=== PATIENT | female | born 1945 | race Caucasian/White ===

== ENCOUNTER 2016-12-13 20:21 | Inpatient (IN) | payer MEDICAID, MEDICARE, OTHER, SELFPAY ==
[2016-12-13 21:10] LABS: CHLORIDE,CL 90 mmol/L (101-111); SODIUM,NA 127 mmol/L (135-145)
--- NOTE | 2016-12-13 23:00 | ER ---
REASON FOR VISIT: Unresponsiveness. HISTORY OF PRESENT ILLNESS: This is a 71-year-old female, who was at her son's house today. She had been sitting in the chair with her eyes closed all day, although she was somewhat more responsive at about 3:00 p.m. when she was sitting with her grandson. She went to the bathroom and was very weak. She was incontinent of urine when she walked in there and the urine went on the floor. She was weak in both arms and legs symmetrically. There did not seem to be focal weakness. She got off the toilet and was again very weak and struggled to get on her feet and was able to do so only with the help of her son. The patient has a history of TIAs. Dr. Sheridan is her doctor here in [facility]. She saw Dr. Allen last Tuesday. Dr. Allen set the patient up to see Dr. Luke, a neurologist from [facility] in [place] as well as a tractor crane operator from [facility]. When there were two providers are here the family notes that the TIAs are more frequent now and they were wondering if anything different could be done for the patient. PHYSICAL EXAMINATION: General: Today on exam, this is a female about the stated age in no acute distress. Vital Signs: She is afebrile with a temperature of 36.9, pulse of 74 and regular, blood pressure is 131/44, respiratory rate 18 and unlabored, and O2 saturation is 93% by oximetry. HEENT: Pupils are equal, round, and react to light and accommodation. She does not follow directions well and is not able to do an extraocular movement exam. Neuro: She is able to cooperate poorly with the neuro exam because of her dementia and an incomplete neuro examination is done. Pharynx is pink and moist. Heart: Regular rate and rhythm without murmur. Lungs: Clear. Abdomen: Soft, and nontender. Extremities: Showed no edema. IMAGING DATA: An EKG is done and shows a sinus rhythm, rate of 72 with a nonspecific repolarization abnormality. At this point, the patient is awaiting further studies. [facility] /[id number]
[2016-12-14] MEDS ORDERED: Potassium Chloride 10 MEQ Tab.ER PO ONE (00:21)
[2016-12-14] MEDS: Sodium Chloride 0.9% 1,000 ML IV SCH ×2 (01:08→20:05)
--- NOTE | 2016-12-14 01:10 | PCM.HP ---
H&P History of Present Illness - General Date of Service: 12/14/16 Admit Problem/Dx: Admission Diagnosis/Problem Admission Diagnosis/Problem Syncope Source of Information: Patient, Family, Old records, Provider History Limitations: Reports: Other (poor historian - underlying dementia ) - History of Present Illness Initial Comments - Free Text/Narative: Charito is a 71 y/o who lives at home with assistance from home health and family. She has a PMH of dementia, HTN, TIA, HLD, who presents to EOD with episode of unresponsiveness/syncope episode. Pt is poor historian and history is provide by son with whom she spent the day/weekend. (pt lives in her own home but does spend weekends/holidays with son) son reports she was at her baseline all weekend. then this am she seemed more tired and as day progressed more weak. PT required increased assistance to use her walker and walked slower than normal. She was noted to have mild cough, unproductive, and warm (possible subjective fevers?), She deneid any dysuria, n /v, diarrhea, abd pain, GRULLON, sore thoat, vision changes, skin lesions, falls. This evening pt had gone to bathroom and required assitance to get off commode. She walked slowly to kitchen and sat in chair. pt was weak. She then became unresponsive. she had her eyes closed, slummed (family held her in chair), no seizure like activity. seems to last several minutes (prior TIAx have lasted on one minute or so). Family called EMS and pt was transported to EOD EOD w/u significant for elevated WBC at 19.2 with left shift but no source of infection. trop neg, EKG- no acute findings. mild elevated CK at 632. low sodium at 127, low K 3.[address] head. pt remains weak (generalized ) but otherwise seems back to baseline - Related Data Allergies/Adverse Reactions: Allergies Allergy/AdvReac Type Severity Reaction Status Date / Time meperidine HCl [From Demerol] Allergy UNKNOWN Verified 12/13/16 20:28 Home Medications: Home Meds Aspirin [Howard Aspirin] 81 mg PO DAILY 04/08/15 [History] Donepezil HCl 10 mg PO QPM 04/08/15 [History] Escitalopram [Lexapro] 10 mg PO QPM 04/08/15 [History] Losartan Potassium [Cozaar] 100 mg PO DAILY 04/08/15 [History] Memantine [Namenda] 10 mg PO DAILY 04/08/15 [History] Omeprazole [priLOSEC OTC] 20 mg PO DAILY 04/08/15 [History] risperiDONE [RisperiDAL] 0.25 mg PO BEDTIME 04/08/15 [History] Hydrochlorothiazide 25 mg PO DAILY #30 tablet 04/10/15 [Rx] Simvastatin [Zocor] 20 mg PO BEDTIME #30 tablet 04/10/15 [Rx] Sodium Chloride 0.65% [[place] Nasal [place]] 45 ml SHRUTHI DAILY 07/08/16 [History] Clopidogrel [Plavix] 75 mg PO DAILY #30 tablet 07/09/16 [Rx] Past Medical History - Past Health History Medical/Surgical History: Denies Medical/Surgical History Cardiovascular History: Reports: Heart murmur, High cholesterol, Hypertension Other Cardiovascular History: history of bradycardia Gastrointestinal History: Reports: GERD, Other (see below) Other Gastrointestinal History: colonic diverticular disease Other OB/BYN History: 1 NVD Neurological History: Reports: TIA, Other (see below) Other Neuro History: dementia Psychiatric History: Reports: Anxiety, Dementia, Depression, Psychosis - Past Surgical History GI Surgical History: Reports: Colonoscopy Musculoskeletal Surgical History: Reports: Joint replacement, Knee replacement, Other (see below) Other Musculoskeletal Surgeries/Procedures:: rotator cuff repair bilateral Social & Family History - Family History Family Medical History: Noncontributory Other Family History: both parents from cancer- unknown types - Tobacco Use Smoking Status *Q: Never Smoker Second Hand Smoke Exposure: No - Caffeine Use Caffeine Use: Reports: Coffee - Alcohol Use Days Per Week of Alcohol Use: 0 - Recreational Drug Use Recreational Drug Use: No - Living Situation & Occupation Living situation: Reports: , alone Occupation: retired H&P Review of Systems - Review of Systems: Review Of Systems: See Below Free Text/Narrative: from pt and son General: Reports: fever, weakness HEENT: Reports: no symptoms Pulmonary: Reports: cough Gastrointestinal: Reports: No symptoms Genitourinary: Reports: incontinence (didnt get to commode intime - ) Musculoskeletal: Reports: no symptoms Skin: Reports: bruising (few on legs ) Psychiatric: Reports: confusion (at baseline ) Neurological: Reports: weakness, other (episode of unresponsiveness ) Exam - Exam Exam: See Below - Vital Signs Vital Signs: Last Vital Signs Temp 37.3 C 12/13/16 23:41 Pulse 80 12/13/16 23:41 Resp 20 12/13/16 23:41 BP 151/49 H 12/13/16 23:41 Pulse Ox 98 12/13/16 23:41 Weight: 84.867 kg - Exam General: alert, cooperative HEENT: Conjunctiva clear, Pupils equal, Pupils reactive Neck: supple Lungs: Clear to auscultation, Normal respiratory effort Cardiovascular: regular rate, regular rhythm, systolic murmur Abdomen: normal bowel sounds, soft, other (obese) Back Exam: normal inspection Extremities: normal inspection Peripheral Pulses: 2+: radial (L), radial (R), posterior tibial (L), posterior tibial (R) Skin: ecchymosis (few scattered small bruises on legs ) Neurological: reflexes equal bilateral, strength equal bilateral, normal speech , normal tone Neuro Extensive - Mental Status: alert DTR: 2+: patella (L), patella (R) Psychiatric: alert, other (poor historian at baseline ) - Patient Data Result Diagrams: 12/13/16 20:45 12/13/16 20:45 EKG INTERPRETATION EKG Date: 12/13/16 Rhythm: NSR EKG Interpretation Comments: reporlarization changes- unchanged from prior EKG *Q Meaningful Use (ADM) - VTE *Q VTE Criteria *Q: - Stroke *Q Stroke Criteria *Q: - AMI *Q AMI Criteria *Q: - Problem List (1) Hyponatremia SNOMED Code(s): 38468385 ICD Code: E87.1 - HYPO-OSMOLALITY AND HYPONATREMIA Status: Acute Priority : Medium Current Visit: Yes (2) Leukocytosis, unspecified SNOMED Code(s): 305730276, 081806528 ICD Code: D72.829 - ELEVATED WHITE BLOOD CELL COUNT, UNSPECIFIED Status: Acute Priority: Medium Current Visit: Yes Qualifiers: Leukocytosis type: unspecified Qualified Code(s): D72.829 - Elevated white blood cell count, unspecified (3) Syncopal episodes SNOMED Code(s): 467688190 ICD Code: R55 - SYNCOPE AND COLLAPSE Status: Acute Priority: High Current Visit: Yes Qualifiers: Syncope type: unspecified Qualified Code(s): R55 - Syncope and collapse Problem List Initiated/Reviewed/Updated: Yes Orders Last 24hrs: Active Orders 24 hr Category Date Time Status Patient Status [ADT] Routine ADT 12/14/16 00:22 Ordered Cardiac Monitoring [RC] CONTINUOUS Care 12/14/16 00:23 Active Intake and Output [RC] QSHIFT Care 12/14/16 00:22 Active Neuro Check [RC] Q2H Care 12/14/16 00:28 Active Oxygen Therapy [RC] PRN Care 12/14/16 00:22 Active Peripheral IV Care [RC] . DIRECTED Care 12/14/16 00:23 Active Up With Assistance [RC] ASDIRECTED Care 12/14/16 00:21 Active VTE/DVT Education [RC] PER UNIT ROUTINE Care 12/14/16 00:22 Active Vital Signs [RC] Q4H Care 12/14/16 00:22 Active OT Evaluation and Treatment [CONS] Routine Cons 12/14/16 00:21 Active PT Evaluation and Treatment [CONS] Routine Cons 12/14/16 00:21 Active Regular Diet [DIET] Diet 12/14/16 Breakfast Active BASIC METABOLIC PANEL,BMP [CHEM] Routine Lab 12/14/16 06:00 Ordered CBC WITH AUTO DIFF [HEME] Routine Lab 12/14/16 06:00 Ordered CREATINE KINASE,CK [CHEM] Routine Lab 12/14/16 06:00 Ordered TROPONIN I [CHEM] Q8H Lab 12/14/16 04:00 Ordered TROPONIN I [CHEM] Q8H Lab 12/14/16 12:00 Ordered Acetaminophen [Tylenol] Med 12/14/16 00:21 Active 650 mg PO Q4H PRN Heparin Sodium Med 12/14/16 06:00 Active 5,000 units SUBCUT Q8HR Sodium Chloride 0.9% [Normal Saline] 1,000 ml Med 12/14/16 00:30 Active IV ASDIRECTED Sodium Chloride 0.9% [Saline Flush] Med 12/14/16 00:21 Active 10 ml FLUSH ASDIRECTED PRN Peripheral IV Insertion Adult [OM.PC] Routine Oth 12/14/16 00:21 Ordered Resuscitation Status Routine Resus Stat 12/14/16 00:21 Ordered Medication Orders Acetaminophen (Tylenol) 650 mg PO Q4H PRN PRN Reason: Pain (Mild 1-3)/fever Heparin Sodium (Porcine) (Heparin Sodium) 5,000 units SUBCUT Q8HR OFELIA Sodium Chloride (Normal Saline) 1,000 mls @ 100 mls/hr IV ASDIRECTED OFELIA Sodium Chloride (Saline Flush) 10 ml FLUSH ASDIRECTED PRN PRN Reason: Keep Vein Open Assessment/Plan Comment:: episode of unresponsiveness/syncope -pt with h/o recurrent TIA- overall presentation similar ot prior events but this one lasted longer -DDX - sycnope, TIA, cardiac event - ACS, less likey due to her mod , also consider seizure- given mild elevation of CPK -obtain neuro checks Q2 overnight -consider MRI in am -place pt on tele- obtain serial trops -consult PT/OT in am due to the weakness -cont asa, plavix, lipids -check lipid panel Leukocytosis -no identified bacterial source - CXR, UA unremarkable, no GI symptoms, no skin lesions, nl lactic acid; no SIRS -possible viral infections vs stress reaction to her unresponsive event -hold antibx for now - recheck in am hyponatremia -DDX_ due to HCTZ, poor PO intake, possible SIADH - pt on TIAGO, SSRI -will give IV fluids and recheck in am -checu urine studies if falls more low potassium -replace PO -recheck in am hematuria -UA with protein and blood- but was a cath sample -hydrate overnight and recheck in am -f/u on urine culture elevated CPK -mild - 637 -minimal bruises on leg- unlikely source -?? seizure -early rhabdo ?? - etiology -- recheck in am -give gentle IV fluids for renal protection dementia -appears at baseline cont home meds obesity BMI 33 limited activity due to bad knees, dementia heparine DVT PPX pt is full code at this time per d/w son
[2016-12-14] MEDS: Acetaminophen 325 MG Tab PO PRN (03:58)
[2016-12-14 04:15] LABS: CHLORIDE,CL 92 mmol/L (101-111); SODIUM,NA 128 mmol/L (135-145)
[2016-12-14] MEDS: Heparin Sodium 5,000 Units/ML Vial SUBCUT SCH ×3 (05:24→22:08)
[2016-12-14] MEDS ORDERED: Levofloxacin/Dextrose 5%-Water 750 MG in Premix Bag 1 BAG IV SCH (08:00)
[2016-12-14] MEDS ORDERED: Non-Formulary Medication 1 Each (Omeprazole [Prilosec Otc] 20 MG) PO SCH (09:00)
[2016-12-14] MEDS: Potassium Chloride 10 MEQ Tab.ER PO SCH ×3 (09:42→17:43)
[2016-12-14] MEDS ORDERED: Memantine 10 MG Tab PO SCH (11:00)
[2016-12-14] MEDS ORDERED: Iopamidol 612 MG/ML 75 ML Bottle IVPUSH ONE (11:24)
[2016-12-14] MEDS ORDERED: Barium Sulfate w/v 2.1% Oral Susp 450 ML Bottle PO ONE (11:24)
--- NOTE | 2016-12-14 11:36 | ER ---
This is a continuation of a note that was dictated up to the EKG. I would like to monitor this with that document. LABORATORY: Laboratory today [place] Ms[place] [address]. Coagulation INR is 1.1. Chemistry shows sodium is 127 with a potassium of 3.3, creatine kinase is 635, and the glucose is 133. Urinalysis shows 100 protein, 100 glucose which are both high and ketones of 15, which is also high. The troponin is within normal limits as is the CK-MB. Chest x-ray is unremarkable. IMPRESSION: 1. Leukocytosis. 2. Hyponatremia. 3. Elevated CK. PLAN: The patient is admitted to Dr. Win. MOD /[id number]
--- NOTE | 2016-12-14 12:10 | PCM.PN ---
- General Info Date of Service: 12/14/16 Subjective Update: this a pt states she feels better; son also notes she has better color and more interactive/awake. pt remains poor historian as per her baseline. pt denies any pain, cough, n/v, diarrhea, ; states has shortness of breath sometimes in her throat. son reports pt has poor dentation and due to have several teeth extracted Functional Status: Reports: pain controlled, tolerating diet - Review of Systems General: Reports: weakness HEENT: Reports: no symptoms Pulmonary: Reports: shortness of breath Cardiovascular: Reports: no symptoms Gastrointestinal: Reports: No symptoms Genitourinary: Reports: no symptoms Musculoskeletal: Reports: no symptoms Skin: Reports: no symptoms Systems Review Comment:: unreliable history from confused pt - Patient Data Vitals - most recent: Last Vital Signs Temp 37.6 C 12/14/16 11:37 Pulse 84 12/14/16 11:37 Resp 20 12/14/16 11:37 BP 139/47 L 12/14/16 11:37 Pulse Ox 95 12/14/16 11:37 Weight - most recent: 84.867 kg I&O - last 24 hours: Intake & Output 12/13/16 12/14/16 12/14/16 22:59 06:59 14:59 Intake Total 429 130 Balance 429 130 Lab Results last 24 hrs: Laboratory Results - last 24 hr 12/14/16 12/14/16 12/14/16 Range/Units 03:55 03:55 03:55 WBC 23.5 H (5.0-10.0) 10^3/uL RBC 3.80 L (4.2-5.4) 10^6/uL Hgb 11.8 L (12.0-16.0) g/dL Hct 34.4 L (37.0-47.0) % MCV 90.5 (80-100) fL MCH 31.1 (27.0-34.0) pg MCHC 34.3 (33.0-35.0) g/dL Plt Count 152 (150-450) 10^3/uL Neut % (Auto) 87.8 H (42.2-75.2) % Lymph % (Auto) 3.5 L (20.5-50.1) % Loup % (Auto) 8.7 H (2-8) % Eos % (Auto) 0.0 L (1.0-3.0) % Baso % (Auto) 0.0 (0.0-1.0) % Sodium 128 L (135-145) mmol/L Potassium 3.5 L (3.6-5.0) mmol/L Chloride 92 L (101-111) mmol/L Carbon Dioxide 29.0 (21.0-31.0) mmol/L Anion Gap 10.5 BUN 12 (7-18) mg/dL Creatinine 0.8 (0.6-1.3) mg/dL Est Cr Clr Drug Dosing 52.58 mL/min Estimated GFR (MDRD) > 60 Glucose 135 H (74-105) mg/dL Calcium 9.2 (8.4-10.2) mg/dl Creatine Kinase 511 H (26-174) IU/L Troponin I < 0.02 (0.00-0.02) ng/ml Med Orders - Current: Current Medications Acetaminophen (Tylenol) 650 mg PO Q4H PRN PRN Reason: Pain (Mild 1-3)/fever Last Admin: 12/14/16 03:58 Dose: 650 mg Aspirin (Halfprin) 81 mg PO DAILY [facility] Clopidogrel Bisulfate (Plavix) 75 mg PO DAILY [facility] Heparin Sodium (Porcine) (Heparin Sodium) 5,000 units SUBCUT Q8HR [facility] Last Admin: 12/14/16 05:24 Dose: 5,000 units Sodium Chloride (Normal Saline) 1,000 mls @ 100 mls/hr IV ASDIRECTED [facility] Last Admin: 12/14/16 01:08 Dose: 100 mls/hr Piperacillin Sod/Tazobactam (Sod 3.375 gm/ Sodium Chloride) 100 mls @ 200 mls/ hr IV Q6HR [facility] Memantine (Namenda) 10 mg PO DAILY [facility] Non-Formulary Medication (Omeprazole [Prilosec Otc]) 20 mg PO DAILY [facility] Potassium Chloride (Klor-Con 10) 20 meq PO TIDMEALS [facility] Stop: 12/15/16 08:01 Last Admin: 12/14/16 09:42 Dose: 20 meq Simvastatin (Zocor) 20 mg PO BEDTIME [facility] Sodium Chloride (Saline Flush) 10 ml FLUSH ASDIRECTED PRN PRN Reason: Keep Vein Open Discontinued Medications Barium Sulfate (Readi-Cat 2) 900 ml PO ONETIME ONE Stop: 12/14/16 11:25 Donepezil HCl (Aricept) 10 mg PO QPM [facility] Levofloxacin/Dextrose 750 mg/ (Premix) 150 mls @ 100 mls/hr IV Q24H [facility] Last Admin: 12/14/16 09:42 Dose: 100 mls/hr Iopamidol (Isovue-300 (61%)) 75 ml IVPUSH ONETIME ONE Stop: 12/14/16 11:25 Potassium Chloride (Klor-Con 10) 40 meq PO ONETIME ONE Stop: 12/14/16 00:22 Last Admin: 12/14/16 01:02 Dose: 40 meq - Exam General: alert, cooperative, no acute distress HEENT: Pupils equal Lungs: Clear to auscultation, Normal respiratory effort Cardiovascular: regular rate, regular rhythm, murmurs Abdomen: bowel sounds present, soft, no tenderness Extremities: no edema Skin: warm, dry Neurological: no new focal deficit (confused at baseline ) - Problem List & Annotations (1) Hyponatremia SNOMED Code(s): 98559287 Code(s): E87.1 - HYPO-OSMOLALITY AND HYPONATREMIA Status: Acute Priority : Medium Current Visit: Yes (2) Leukocytosis, unspecified SNOMED Code(s): 163256443, 241066316 Code(s): D72.829 - ELEVATED WHITE BLOOD CELL COUNT, UNSPECIFIED Status: Acute Priority: Medium Current Visit: Yes Qualifiers: Leukocytosis type: unspecified Qualified Code(s): D72.829 - Elevated white blood cell count, unspecified (3) Syncopal episodes SNOMED Code(s): 604200408 Code(s): R55 - SYNCOPE AND COLLAPSE Status: Acute Priority: High Current Visit: Yes Qualifiers: Syncope type: unspecified Qualified Code(s): R55 - Syncope and collapse (4) Bacteremia SNOMED Code(s): 2229515 Code(s): R78.81 - BACTEREMIA Status: Acute Current Visit: Yes - Problem List Review Problem List Initiated/Reviewed/Updated: Yes - My Orders Last 24 Hours: My Active Orders 12/14/16 00:21 Up With Assistance [RC] ASDIRECTED OT Evaluation and Treatment [CONS] Routine PT Evaluation and Treatment [CONS] Routine Acetaminophen [Tylenol] 650 mg PO Q4H PRN Sodium Chloride 0.9% [Saline Flush] 10 ml FLUSH ASDIRECTED PRN Peripheral IV Insertion Adult [OM.PC] Routine Resuscitation Status Routine 12/14/16 00:22 Patient Status [ADT] Routine Intake and Output [RC] QSHIFT Oxygen Therapy [RC] PRN VTE/DVT Education [RC] PER UNIT ROUTINE Vital Signs [RC] Q4H 12/14/16 00:23 Cardiac Monitoring [RC] CONTINUOUS Peripheral IV Care [RC] . DIRECTED 12/14/16 00:30 Sodium Chloride 0.9% [Normal Saline] 1,000 ml IV ASDIRECTED 12/14/16 03:55 LIPID PANEL [REF] Routine 12/14/16 06:00 Heparin Sodium 5,000 units SUBCUT Q8HR 12/14/16 07:50 UA W/MICROSCOPIC [URIN] Routine 12/14/16 07:57 INFLUENZA A+B AG SCREEN [RM] Routine 12/14/16 08:00 Potassium Chloride [Klor-Con 10] 20 meq PO TIDMEALS 12/14/16 09:00 Aspirin [Halfprin] 81 mg PO DAILY Clopidogrel [Plavix] 75 mg PO DAILY Omeprazole [priLOSEC OTC] 20 mg PO DAILY 12/14/16 10:00 Ang Head wo Cont [MR] Routine Brain wo Cont [MR] Routine 12/14/16 11:00 Memantine [Namenda] 10 mg PO DAILY 12/14/16 11:24 Communication Order [RC] ROUTINE 12/14/16 12:00 TROPONIN I [CHEM] Q8H Piperacillin/Tazobactam [Zosyn] 3.375 gm Sodium Chloride 0.9% [Normal Saline] 100 ml IV Q6HR 12/14/16 13:00 SODIUM,NA [CHEM] Routine 12/14/16 14:00 Abdomen Pelvis w wo Cont [CT] Routine 12/14/16 21:00 Simvastatin [Zocor] 20 mg PO BEDTIME 12/14/16 Breakfast Regular Diet [DIET] 12/15/16 06:00 BASIC METABOLIC PANEL,BMP [CHEM] Routine CBC WITH AUTO DIFF [HEME] DAILY CPK [CREATINE KINASE,CK] [CHEM] Routine 12/16/16 06:00 CBC WITH AUTO DIFF [HEME] DAILY - Plan Plan:: episode of unresponsiveness - probable syncope -pt with h/o recurrent TIA- overall presentation similar to prior events per son but this one lasted longer -DDX - sycnope, TIA, cardiac event - ACS, less likey due to her mod , also consider petit mal seizures -neuro checks Q2 stable - will d/c -MRI brain obtained this am- pending report -tele normal sinsu - serial trops negaive- unlikely cardiac source -consult PT/OT due to the weakness -cont asa, plavix, statin -check lipid panel -pending Bacteremia - anerobic -initially no bacterial source - CXR, UA unremarkable, no GI symptoms, no skin lesions, nl lactic acid; no SIRS -considered viral infections vs stress reaction to her unresponsive event - checking influenza -this am blood cultures 3/4 bottles + for anerobic gram + cocci - had initially started levaquin - changed to zosyn given culture results -WBC increased to 23; cont low grade fevers ; still does not meet criteria for SIRS/sepsis -repeat cultures for AM - likely sources - oral cavity (pt has poor dentation) or GI -obtain CT abd / pelvis - pending hyponatremia -DDX_ due to HCTZ, poor PO intake, -responding to NS IV fluids -hold HCTZ low potassium -replaced PO -recheck still borderline- will give PO again -recheck in am hematuria -UA with protein and blood- but was a cath sample -hydrated overnight and recheck today with clean catch -f/u on urine culture elevated CPK -mild - 637 - improved to 511 -minimal bruises on leg- unlikely source -?? seizure -early rhabdo ??? 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
[2016-12-14] MEDS ORDERED: Non-Formulary Medication 1 Each (Simvastatin [Zocor] 20 MG) PO SCH (12:45)
[2016-12-14] MEDS: Aspirin 81 MG Tab.EC PO SCH (13:38)
[2016-12-14] MEDS: Clopidogrel 75 MG Tab PO SCH (13:38)
--- NOTE | 2016-12-14 13:57 | MR ---
Clinical history: 71-year-old 187 pound female with recent history altered mental status, memory los s and confusion who was also evaluated 08 July 2016 for transient weakness right side i.e. apparen t recurrent TIAs. MRI of the head today and CT scan yesterday confirmed extensive microvascular isch emic changes white matter both cerebral hemispheres.
--- NOTE | 2016-12-14 14:27 | MR ---
CLINICAL HISTORY: 71-year-old 187 pound female with clinical "recurrent TIAs" who was reported on em ergency CT scan 13 December 2016 (1 day ago) for altered mental status, memory loss and confusion to have "small vessel ischemic changes (right greater than left)". Follow-up evaluation please. SCAN TECHNIQUE: Unenhanced sagittal T1 and multisequence axial MR images of the head and brain obtai derrick with the patient lying supine on the [place] 1.[employer] [place], [place]. All data archived in the PACS system for storage, reformatting and study. INTERPRETATION: Abnormal. 1. Multiple bright lesions of varying size and configuration scattered throughout the course of the periventricular white matter (particularly callaway radiata, left > right) cerebral hemispheres. 2. No surrounding edema or mass effect on the cerebral sulci or underlying ventricular system. No paul pratentorial or posterior fossa mass lesion. No hydrocephalus. 3. No pathologic calcification, signs of acute intracerebral/intraventricular/subarachnoid bleed, or abnormal extracerebral/intracranial epidural or subdural fluid accumulation (hematoma). 4. Subtle asymmetric periosteal inflammation mastoid sinus on the right. Paranasal sinuses clear. 5. Cerebellum and brainstem unremarkable. CONCLUSION: Chronic microvascular ischemic disease. No intracranial mass, hydrocephalus or bleed. R ight mastoiditis.
[2016-12-14] MEDS: Piperacillin/Tazobactam 3.375 GM in Sodium Chloride 0.9% 100 ML IV SCH ×2 (16:49→20:30)
--- NOTE | 2016-12-14 18:03 | CT ---
Clinical history: 71-year-old hypertensive 187 pound female with "anaerobic bacteremia". Source? Scan technique: Volume acquisition of data from the abdomen and pelvis obtained after oral ingestion 2 bottles Redicat barium and during/after intravenous administration 75 cc nonionic Isovue contrast while the patient was lying supine on the Siemens multi slice CT scanner [place], [place]. All data archived in the PAC system for storage, reformatting and study. Interpretation: 1. Lung bases clear. Osteopenic spine with chronic hypertrophic marginal spondylosis. Dense sclerosi s lower half of the L3 vertebral body and gas in the nucleus pulposus intervertebral discs. 2. Gallbladder wall appears to be thickened. No gallstones or abnormal intrahepatic duct dilatation. Normal liver and spleen. Stomach, pancreas unremarkable but apparent hyperplasia both adrenals. 3. Normal kidneys without sign of mass, nephrolithiasis or obstructive uropathy. Normal bladder. 4. No pelvic or abdominal mass lesion/abscess, retroperitoneal lymphadenopathy, inflammatory "dirty" peritoneal fat, signs of mechanical bowel obstruction, ascites or free intraperitoneal air. 5. Densely calcified "cast" normal caliber aortoiliac vessels. No aneurysm or dissection. 6. Normal appendix right lower quadrant. Diverticulosis descending left colon. CONCLUSION: Diverticulosis left colon. Thick (inflamed?) gallbladder wall. No other signs of intrape ritoneal inflammation this patient with usual signs senescence. Adrenal hyperplasia.
[2016-12-14] MEDS ORDERED: Donepezil 10 MG Tab PO SCH (21:00)
[2016-12-14] MEDS: risperiDONE 0.5 MG Tab PO SCH (22:08)
[2016-12-14] MEDS: Simvastatin 10 MG Tab PO SCH (22:08)
[2016-12-14] MEDS: Escitalopram 10 MG Tab PO SCH (22:09)
[2016-12-14] MEDS: Memantine 10 MG Tab PO SCH (22:09)
[2016-12-15] MEDS: Piperacillin/Tazobactam 3.375 GM in Sodium Chloride 0.9% 100 ML IV SCH ×4 (01:30→17:36)
[2016-12-15] MEDS: Pantoprazole 40 MG Tab.CR PO SCH (05:35)
[2016-12-15] MEDS: Heparin Sodium 5,000 Units/ML Vial SUBCUT SCH ×3 (05:35→21:26)
[2016-12-15 07:02] LABS: CHLORIDE,CL 98 mmol/L (101-111); SODIUM,NA 132 mmol/L (135-145)
[2016-12-15] MEDS: Aspirin 81 MG Tab.EC PO SCH (08:32)
[2016-12-15] MEDS: Potassium Chloride 10 MEQ Tab.ER PO SCH (08:32)
[2016-12-15] MEDS: Clopidogrel 75 MG Tab PO SCH (08:32)
[2016-12-15] MEDS: Losartan 50 MG Tab PO SCH (08:33)
[2016-12-15] MEDS: Memantine 10 MG Tab PO SCH ×2 (08:37→21:25)
[2016-12-15] MEDS: Acetaminophen 325 MG Tab PO PRN ×2 (08:38→19:56)
[2016-12-15] MEDS: Sodium Chloride 0.9% 1,000 ML IV SCH (08:40)
[2016-12-15] MEDS ORDERED: Hydrochlorothiazide 25 MG Tab PO SCH (09:00)
[2016-12-15] MEDS ORDERED: Non-Formulary Medication 1 Each (Pantoprazole Sodium [Protonix] 20 MG) PO SCH (09:00)
[2016-12-15] MEDS ORDERED: Sodium Chloride 0.9% 1,000 ML IV SCH (10:45)
--- NOTE | 2016-12-15 12:13 | PCM.PN ---
- General Info Date of Service: 12/15/16 Subjective Update: pt awake just finished breakfast- visiting with son. pt states she has no pain. eating well. no n/v. no diarrhea. denies dysuria or frequency but staff report cont episodes of urinary incontinence. pt denies diarrhea, rash or abd pain. no abd pain after eating. Functional Status: Reports: pain controlled, tolerating diet, ambulating (with assistance/ walker ), urinating - Review of Systems General: Reports: fever (last night ) HEENT: Reports: no symptoms Pulmonary: Reports: no symptoms Cardiovascular: Reports: no symptoms Gastrointestinal: Reports: No symptoms Genitourinary: Reports: incontinence Musculoskeletal: Reports: no symptoms Skin: Reports: no symptoms Neurological: Reports: confusion (per son she is still not back to baseline - although has some confusion at baseline ) - Patient Data Vitals - most recent: Last Vital Signs Temp 37.3 C 12/15/16 11:00 Pulse 74 12/15/16 11:00 Resp 20 12/15/16 11:00 BP 123/42 L 12/15/16 11:00 Pulse Ox 96 12/15/16 11:00 Weight - most recent: 84.867 kg I&O - last 24 hours: Intake & Output 12/14/16 12/15/16 12/15/16 22:59 06:59 14:59 Output Total 500 Balance -500 Lab Results last 24 hrs: Laboratory Results - last 24 hr 12/14/16 12/14/16 12/14/16 Range/Units 03:55 13:00 13:00 WBC (5.0-10.0) 10^3/uL RBC (4.2-5.4) 10^6/uL Hgb (12.0-16.0) g/dL Hct (37.0-47.0) % MCV (80-100) fL MCH (27.0-34.0) pg MCHC (33.0-35.0) g/dL Plt Count (150-450) 10^3/uL Neut % (Auto) (42.2-75.2) % Lymph % (Auto) (20.5-50.1) % [place] % (Auto) (2-8) % Eos % (Auto) (1.0-3.0) % Baso % (Auto) (0.0-1.0) % Sodium 130 L (135-145) mmol/L Potassium (3.6-5.0) mmol/L Chloride (101-111) mmol/L Carbon Dioxide (21.0-31.0) mmol/L Anion Gap BUN (7-18) mg/dL Creatinine (0.6-1.3) mg/dL Est Cr Clr Drug Dosing mL/min Estimated GFR (MDRD) Glucose (74-105) mg/dL Calcium (8.4-10.2) mg/dl Creatine Kinase (26-174) IU/L Troponin I < 0.02 (0.00-0.02) ng/ml Triglycerides 25 L (30-149) mg/dL Cholesterol 155 (100-199) mg/dL LDL Cholesterol 77 (0-100) mg/dL HDL Cholesterol 73 H (40-59) mg/dL 12/15/16 12/15/16 Range/Units 05:55 05:55 WBC 17.1 H (5.0-10.0) 10^3/uL RBC 3.67 L (4.2-5.4) 10^6/uL Hgb 11.3 L (12.0-16.0) g/dL Hct 34.3 L (37.0-47.0) % MCV 93.5 (80-100) fL MCH 30.8 (27.0-34.0) pg MCHC 32.9 L (33.0-35.0) g/dL Plt Count 146 L (150-450) 10^3/uL Neut % (Auto) 90.5 H (42.2-75.2) % Lymph % (Auto) 3.6 L (20.5-50.1) % [place] % (Auto) 5.7 (2-8) % Eos % (Auto) 0.1 L (1.0-3.0) % Baso % (Auto) 0.1 (0.0-1.0) % Sodium 132 L (135-145) mmol/L Potassium 3.7 (3.6-5.0) mmol/L Chloride 98 L (101-111) mmol/L Carbon Dioxide 28.0 (21.0-31.0) mmol/L Anion Gap 9.7 BUN 12 (7-18) mg/dL Creatinine 0.9 (0.6-1.3) mg/dL Est Cr Clr Drug Dosing 46.74 mL/min Estimated GFR (MDRD) > 60 Glucose 110 H (74-105) mg/dL Calcium 9.1 (8.4-10.2) mg/dl Creatine Kinase 257 H (26-174) IU/L Troponin I (0.00-0.02) ng/ml Triglycerides (30-149) mg/dL Cholesterol (100-199) mg/dL LDL Cholesterol (0-100) mg/dL HDL Cholesterol (40-59) mg/dL [place] Results last 24 hrs: Microbiology 12/14/16 13:30 Influenza Type A Antigen Screen - Final Nasopharyngeal Swab - Nare, Right NEGATIVE INFLUENZA A VIRUS AG Influenza Type B Antigen Screen - Final NEGATIVE INFLUENZA B VIRUS AG Med Orders - Current: Current Medications Acetaminophen (Tylenol) 650 mg PO Q4H PRN PRN Reason: Pain (Mild 1-3)/fever Last Admin: 12/15/16 08:38 Dose: 650 mg Aspirin (Halfprin) 81 mg PO DAILY [facility] Last Admin: 12/15/16 08:32 Dose: 81 mg Clopidogrel Bisulfate (Plavix) 75 mg PO DAILY [facility] Last Admin: 12/15/16 08:32 Dose: 75 mg Escitalopram Oxalate (Lexapro) 15 mg PO BEDTIME [facility] Last Admin: 12/14/16 22:09 Dose: 15 mg Heparin Sodium (Porcine) (Heparin Sodium) 5,000 units SUBCUT Q8HR [facility] Last Admin: 12/15/16 05:35 Dose: 5,000 units Piperacillin Sod/Tazobactam (Sod 3.375 gm/ Sodium Chloride) 100 mls @ 200 mls/ hr IV Q6HR [facility] Last Admin: 12/15/16 05:32 Dose: 200 mls/hr Sodium Chloride (Normal Saline) 1,000 mls @ 75 mls/hr IV ASDIRECTED [facility] Losartan Potassium (Cozaar) 100 mg PO DAILY [facility] Last Admin: 12/15/16 08:33 Dose: 100 mg Memantine (Namenda) 10 mg PO BID [facility] Last Admin: 12/15/16 08:37 Dose: 10 mg Pantoprazole Sodium (Protonix) 40 mg PO ACBRK [facility] Last Admin: 12/15/16 05:35 Dose: 40 mg Risperidone (Risperidal) 0.375 mg PO BEDTIME [facility] Last Admin: 12/14/16 22:08 Dose: 0.375 mg Simvastatin (Zocor) 20 mg PO BEDTIME [facility] Last Admin: 12/14/16 22:08 Dose: 20 mg Sodium Chloride (Saline Flush) 10 ml FLUSH ASDIRECTED PRN PRN Reason: Keep Vein Open Discontinued Medications Barium Sulfate (Readi-Cat 2) 900 ml PO ONETIME ONE Stop: 12/14/16 11:25 Last Admin: 12/14/16 13:34 Dose: 900 ml Donepezil HCl (Aricept) 10 mg PO QPM [facility] Hydrochlorothiazide (Hydrochlorothiazide) 25 mg PO DAILY [facility] Sodium Chloride (Normal Saline) 1,000 mls @ 100 mls/hr IV ASDIRECTED [facility] Last Admin: 12/15/16 08:40 Dose: 100 mls/hr Levofloxacin/Dextrose 750 mg/ (Premix) 150 mls @ 100 mls/hr IV Q24H [facility] Last Admin: 12/14/16 09:42 Dose: 100 mls/hr Iopamidol (Isovue-300 (61%)) 75 ml IVPUSH ONETIME ONE Stop: 12/14/16 11:25 Last Admin: 12/14/16 15:28 Dose: 75 ml Memantine (Namenda) 10 mg PO DAILY [facility] Last Admin: 12/14/16 13:38 Dose: 10 mg Non-Formulary Medication (Pantoprazole Sodium [Protonix]) 20 mg PO DAILY [facility] Potassium Chloride (Klor-Con 10) 40 meq PO ONETIME ONE Stop: 12/14/16 00:22 Last Admin: 12/14/16 01:02 Dose: 40 meq Potassium Chloride (Klor-Con 10) 20 meq PO TIDMEALS [facility] Stop: 12/15/16 08:01 Last Admin: 12/15/16 08:32 Dose: 20 meq - Exam General: alert, oriented, cooperative, no acute distress HEENT: Pupils equal Neck: supple Lungs: Clear to auscultation, Normal respiratory effort Cardiovascular: regular rate, regular rhythm Abdomen: bowel sounds present, soft, no tenderness, no distension Neurological: other (pleasantly confused; no focal deficits; speech clear ) - Problem List & Annotations (1) Hyponatremia SNOMED Code(s): 46292934 Code(s): E87.1 - HYPO-OSMOLALITY AND HYPONATREMIA Status: Acute Priority : Medium Current Visit: Yes (2) Leukocytosis, unspecified SNOMED Code(s): 694795185, 101418629 Code(s): D72.829 - ELEVATED WHITE BLOOD CELL COUNT, UNSPECIFIED Status: Acute Priority: Medium Current Visit: Yes Qualifiers: Leukocytosis type: unspecified Qualified Code(s): D72.829 - Elevated white blood cell count, unspecified (3) Syncopal episodes SNOMED Code(s): 451778784 Code(s): R55 - SYNCOPE AND COLLAPSE Status: Acute Priority: High Current Visit: Yes Qualifiers: Syncope type: unspecified Qualified Code(s): R55 - Syncope and collapse (4) Bacteremia SNOMED Code(s): 9354288 Code(s): R78.81 - BACTEREMIA Status: Acute Current Visit: Yes - Problem List Review Problem List Initiated/Reviewed/Updated: Yes - My Orders Last 24 Hours: My Active Orders 12/14/16 11:24 Communication Order [RC] ROUTINE 12/14/16 12:00 Piperacillin/Tazobactam [Zosyn] 3.375 gm Sodium Chloride 0.9% [Normal Saline] 100 ml IV Q6HR 12/14/16 21:00 Escitalopram [Lexapro] 15 mg PO BEDTIME Memantine [Namenda] 10 mg PO BID Simvastatin [Zocor] 20 mg PO BEDTIME risperiDONE [RisperiDAL] 0.375 mg PO BEDTIME 12/15/16 05:55 CULTURE BLOOD [BC] Routine 12/15/16 06:00 CULTURE BLOOD [BC] Routine Pantoprazole [Protonix] 40 mg PO ACBRK Blood Culture x2 Reflex Set [OM.PC] Routine 12/15/16 09:00 Losartan [Cozaar] 100 mg PO DAILY 12/15/16 10:45 Sodium Chloride 0.9% [Normal Saline] 1,000 ml IV ASDIRECTED 12/16/16 06:00 CBC WITH AUTO DIFF [HEME] DAILY - Plan Plan:: episode of unresponsiveness - probable syncope -pt with h/o recurrent TIA- overall presentation similar to prior events per son but this one lasted longer -DDX - sycnope, TIA, cardiac event - ACS, less likey due to her mod , also consider petit mal seizures - may be related to her acute infection -neuro checks Q2 first 24 hours were stable -MRI brain obtained -no acute CVA - chronic microvascular changes; also noted predominance of ventricles - question normal pressure hydrocephalis ?? -tele normal sinsu - serial trops negative- unlikely cardiac source -cont PT/OT due to the weakness -cont asa, plavix, statin -lipid panel - LDL of 77 - cont statin Bacteremia - anerobic -initially no bacterial source - CXR, UA unremarkable, no GI symptoms, no skin lesions, nl lactic acid; no SIRS -considered viral infections vs stress reaction to her unresponsive event - influenza negative - blood cultures 3/4 bottles + for anerobic gram + cocci - had initially started levaquin - changed to zosyn given culture results - cont pending ID/ senstivities -repeat blood cultures obtained this am 12/15/16 - likely sources - oral cavity (pt has poor dentation) or GI - -CT abd / pelvis - no obvious source- question of thickened gallbladder wall - but pt has NO RUQ pain and NO abd LFTs/bili/alk phos - making gallbladder unlikely source. -pt will need PICC - will d/w son and ask anesthesia if they can place line hyponatremia -DDX_ due to HCTZ, poor PO intake, -responding to NS IV fluids - will decrease rate -hold HCTZ low potassium -replaced PO - now nl range hematuria -UA with protein and blood- but was a cath sample -hydrated overnight -f/u on urine culture - still pending elevated CPK -mild - 637 - improving trend 511 - 257 -minimal bruises on leg- unlikely source -?? seizure -early rhabdo ??? 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
[2016-12-15] MEDS: risperiDONE 0.5 MG Tab PO SCH (21:25)
[2016-12-15] MEDS: Escitalopram 10 MG Tab PO SCH (21:25)
[2016-12-15] MEDS: Simvastatin 10 MG Tab PO SCH (21:26)
[2016-12-16] MEDS: Piperacillin/Tazobactam 3.375 GM in Sodium Chloride 0.9% 100 ML IV SCH ×2 (00:16→05:50)
[2016-12-16] MEDS: Acetaminophen 325 MG Tab PO PRN (00:22)
[2016-12-16] MEDS: Heparin Sodium 5,000 Units/ML Vial SUBCUT SCH ×3 (05:58→21:44)
[2016-12-16] MEDS: Pantoprazole 40 MG Tab.CR PO SCH (05:59)
[2016-12-16] MEDS: Aspirin 81 MG Tab.EC PO SCH (09:39)
[2016-12-16] MEDS: Memantine 10 MG Tab PO SCH ×2 (09:39→21:41)
[2016-12-16] MEDS: Clopidogrel 75 MG Tab PO SCH (09:39)
[2016-12-16] MEDS: Losartan 50 MG Tab PO SCH (09:39)
--- NOTE | 2016-12-16 11:18 | PCM.PN ---
- General Info Date of Service: 12/16/16 Subjective Update: pt resting in bed. she has no complaints . denies any pain in her mouth, abd, no skin lesions noted by pt or staff. eating well. Functional Status: Reports: pain controlled, tolerating diet, ambulating, urinating - Review of Systems General: Reports: no symptoms HEENT: Reports: no symptoms Pulmonary: Reports: no symptoms Cardiovascular: Reports: no symptoms Gastrointestinal: Reports: No symptoms Genitourinary: Reports: no symptoms (no episodes of incontinence today per staff ) Musculoskeletal: Reports: no symptoms Skin: Reports: bruising (legs ) Neurological: Reports: confusion (at baseline ) - Patient Data Vitals - most recent: Last Vital Signs Temp 36.1 C 12/16/16 10:59 Pulse 73 12/16/16 10:59 Resp 18 12/16/16 10:59 BP 153/58 H 12/16/16 10:59 Pulse Ox 97 12/16/16 10:59 Weight - most recent: 84.867 kg I&O - last 24 hours: Intake & Output 12/15/16 12/16/16 12/16/16 22:59 06:59 14:59 Intake Total 533 1190 160 Output Total 125 400 Balance 408 790 160 Lab Results last 24 hrs: Laboratory Results - last 24 hr 12/16/16 Range/Units 06:24 WBC 8.6 (5.0-10.0) 10^3/uL RBC 3.18 L (4.2-5.4) 10^6/uL Hgb 9.8 L (12.0-16.0) g/dL Hct 30.0 L (37.0-47.0) % MCV 94.3 (80-100) fL MCH 30.8 (27.0-34.0) pg MCHC 32.7 L (33.0-35.0) g/dL Plt Count 153 (150-450) 10^3/uL Neut % (Auto) 76.7 H (42.2-75.2) % Lymph % (Auto) 10.0 L (20.5-50.1) % [place] % (Auto) 9.1 H (2-8) % Eos % (Auto) 4.1 H (1.0-3.0) % Baso % (Auto) 0.1 (0.0-1.0) % [place] Results last 24 hrs: Microbiology 12/15/16 06:00 Aerobic Blood Culture - Preliminary Blood - Venous - Lab Draw NO GROWTH AFTER 1 DAY Anaerobic Blood Culture - Preliminary NO GROWTH AFTER 1 DAY 12/15/16 05:55 Aerobic Blood Culture - Preliminary Blood - Venous NO GROWTH AFTER 1 DAY Anaerobic Blood Culture - Preliminary NO GROWTH AFTER 1 DAY Med Orders - Current: Current Medications Acetaminophen (Tylenol) 650 mg PO Q4H PRN PRN Reason: Pain (Mild 1-3)/fever Last Admin: 12/16/16 00:22 Dose: 650 mg Aspirin (Halfprin) 81 mg PO DAILY [facility] Last Admin: 12/16/16 09:39 Dose: 81 mg Clopidogrel Bisulfate (Plavix) 75 mg PO DAILY [facility] Last Admin: 12/16/16 09:39 Dose: 75 mg Escitalopram Oxalate (Lexapro) 15 mg PO BEDTIME [facility] Last Admin: 12/15/16 21:25 Dose: 15 mg Heparin Sodium (Porcine) (Heparin Sodium) 5,000 units SUBCUT Q8HR [facility] Last Admin: 12/16/16 05:58 Dose: 5,000 units Nafcillin Sodium 2 gm/ Sodium (Chloride) 100 mls @ 100 mls/hr IV Q6HR [facility] Losartan Potassium (Cozaar) 100 mg PO DAILY [facility] Last Admin: 12/16/16 09:39 Dose: 100 mg Memantine (Namenda) 10 mg PO BID [facility] Last Admin: 12/16/16 09:39 Dose: 10 mg Pantoprazole Sodium (Protonix) 40 mg PO ACBRK [facility] Last Admin: 12/16/16 05:59 Dose: 40 mg Risperidone (Risperidal) 0.375 mg PO BEDTIME [facility] Last Admin: 12/15/16 21:25 Dose: 0.375 mg Simvastatin (Zocor) 20 mg PO BEDTIME [facility] Last Admin: 12/15/16 21:26 Dose: 20 mg Sodium Chloride (Saline Flush) 10 ml FLUSH ASDIRECTED PRN PRN Reason: Keep Vein Open Discontinued Medications Barium Sulfate (Readi-Cat 2) 900 ml PO ONETIME ONE Stop: 12/14/16 11:25 Last Admin: 12/14/16 13:34 Dose: 900 ml Donepezil HCl (Aricept) 10 mg PO QPM [facility] Hydrochlorothiazide (Hydrochlorothiazide) 25 mg PO DAILY [facility] Sodium Chloride (Normal Saline) 1,000 mls @ 100 mls/hr IV ASDIRECTED [facility] Last Admin: 12/15/16 08:40 Dose: 100 mls/hr Levofloxacin/Dextrose 750 mg/ (Premix) 150 mls @ 100 mls/hr IV Q24H [facility] Last Admin: 12/14/16 09:42 Dose: 100 mls/hr Piperacillin Sod/Tazobactam (Sod 3.375 gm/ Sodium Chloride) 100 mls @ 200 mls/ hr IV Q6HR [facility] Last Admin: 12/16/16 05:50 Dose: 200 mls/hr Sodium Chloride (Normal Saline) 1,000 mls @ 75 mls/hr IV ASDIRECTED [facility] Last Admin: 12/16/16 02:13 Dose: 75 mls/hr Iopamidol (Isovue-300 (61%)) 75 ml IVPUSH ONETIME ONE Stop: 12/14/16 11:25 Last Admin: 12/14/16 15:28 Dose: 75 ml Memantine (Namenda) 10 mg PO DAILY [facility] Last Admin: 12/14/16 13:38 Dose: 10 mg Non-Formulary Medication (Pantoprazole Sodium [Protonix]) 20 mg PO DAILY [facility] Potassium Chloride (Klor-Con 10) 40 meq PO ONETIME ONE Stop: 12/14/16 00:22 Last Admin: 12/14/16 01:02 Dose: 40 meq Potassium Chloride (Klor-Con 10) 20 meq PO TIDMEALS [facility] Stop: 12/15/16 08:01 Last Admin: 12/15/16 08:32 Dose: 20 meq - Exam General: alert, cooperative, no acute distress HEENT: Pupils equal Lungs: Clear to auscultation, Normal respiratory effort Cardiovascular: regular rate, regular rhythm, murmurs Abdomen: bowel sounds present, soft, no tenderness Extremities: no edema Skin: ecchymosis (few bruises on legs - minimal ) Neurological: other (pleasantly confused - can not perform multi-step directions - i.e put your finger on your nose then touch my finger. ) - Problem List & Annotations (1) Hyponatremia SNOMED Code(s): 69049751 Code(s): E87.1 - HYPO-OSMOLALITY AND HYPONATREMIA Status: Acute Priority : Medium Current Visit: Yes (2) Leukocytosis, unspecified SNOMED Code(s): 120417939, 369473035 Code(s): D72.829 - ELEVATED WHITE BLOOD CELL COUNT, UNSPECIFIED Status: Acute Priority: Medium Current Visit: Yes Qualifiers: Leukocytosis type: unspecified Qualified Code(s): D72.829 - Elevated white blood cell count, unspecified (3) Syncopal episodes SNOMED Code(s): 590089159 Code(s): R55 - SYNCOPE AND COLLAPSE Status: Acute Priority: High Current Visit: Yes Qualifiers: Syncope type: unspecified Qualified Code(s): R55 - Syncope and collapse (4) Bacteremia SNOMED Code(s): 5562195 Code(s): R78.81 - BACTEREMIA Status: Acute Current Visit: Yes - Problem List Review Problem List Initiated/Reviewed/Updated: Yes - My Orders Last 24 Hours: My Active Orders 12/16/16 12:00 Nafcillin 2 gm Sodium Chloride 0.9% [Normal Saline] 100 ml IV Q6HR 12/17/16 06:00 BASIC METABOLIC PANEL,BMP [CHEM] Routine 12/20/16 10:52 Echo Comp wo Cont [US] Routine - Plan Plan:: episode of unresponsiveness - probable syncope -pt with h/o recurrent TIA- overall presentation similar to prior events per son but this one lasted longer -DDX - sycnope, TIA, cardiac event - ACS, less likey due to her mod , also consider petit mal seizures - may be related to her acute infection -neuro checks Q2 first 24 hours were stable - no similar events since admit -MRI brain obtained -no acute CVA - chronic microvascular changes; also noted predominance of ventricles - question normal pressure hydrocephalis ?? -tele normal sinsu - serial trops negative- unlikely cardiac source -cont PT/OT due to the weakness -cont asa, plavix, statin -lipid panel - LDL of 77 - cont statin -pt has f/u appointment wiht Dr. Luke in [place] on Dec 27 -if pt cont to have slow gait and incontinence after infection under control- would need eval for normal pressure hydrocephalus Bacteremia - MSSA -no obvious source - CXR, UA unremarkable, no GI symptoms, no skin lesions, nl lactic acid; no SIRS; CT abd/pelvs- no obvious source - blood cultures 3/4 bottles + for anerobic gram + cocci - had initially started levaquin - changed to zosyn given culture results - cont pending ID/ senstivities -repeat blood cultures obtained 12/15/16 - neg to date -pt has poor dentation but MSSA would not be a typical source for oral cavity ? ?? -CT abd / pelvis - no obvious source- question of thickened gallbladder wall - but pt has NO RUQ pain and NO abd LFTs/bili/alk phos - making gallbladder unlikely source. -pt will need PICC - -ECHO ordered - not available until Tuesday - may need SY pending results of ECHO -pt has artifical knee and mod - will need IV antibx for at least 4 weeks from first negative blood culture -given ID/sens- MSSA - will d/c zosyn and start Nafcillin 2 g IV Q6 -will check SED, CRP today so can follow trend - repeat weekly -will need at least weekly creatinine, and ALT hyponatremia - improving -DDX_ due to HCTZ, poor PO intake, -responding to NS IV fluids - will d/c -cont to hold HCTZ -repeat BMP in am since will d/c fluids low potassium -replaced PO - now nl range hematuria -UA with protein and blood- but was a cath sample -hydrated overnight -have been unable to obtain repeat UA due to incontinence- try again tomorrow elevated CPK -mild - 637 - improving trend 511 - 257 -minimal bruises on leg- unlikely source -?? seizure -early rhabdo ??? 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
[2016-12-16] MEDS: Nafcillin 2 GM in Sodium Chloride 0.9% 100 ML IV SCH ×3 (12:11→23:42)
[2016-12-16] MEDS: Sodium Chloride 0.9% 10 ML Syringe FLUSH PRN ×3 (12:12→23:42)
--- NOTE | 2016-12-16 15:05 | EKG ---
12/13/2016 - BRIANNA ELIZABETH - TIME: 2034 hours. EKG shows normal sinus rhythm at 72 beats per minute. There are repolarization changes. [facility] /[id number]
[2016-12-16] MEDS: Simvastatin 10 MG Tab PO SCH (21:40)
[2016-12-16] MEDS: risperiDONE 0.5 MG Tab PO SCH (21:41)
[2016-12-16] MEDS: Escitalopram 10 MG Tab PO SCH (21:44)
[2016-12-17] MEDS: Sodium Chloride 0.9% 10 ML Syringe FLUSH PRN ×5 (00:48→11:37)
[2016-12-17] MEDS: Heparin Sodium 5,000 Units/ML Vial SUBCUT SCH (05:35)
[2016-12-17] MEDS: Pantoprazole 40 MG Tab.CR PO SCH (05:35)
[2016-12-17] MEDS: Nafcillin 2 GM in Sodium Chloride 0.9% 100 ML IV SCH (05:46)
[2016-12-17 06:49] LABS: CHLORIDE,CL 99 mmol/L (101-111); SODIUM,NA 134 mmol/L (135-145)
[2016-12-17] MEDS ORDERED: Flu Vaccine 2016-17(36Mos+)/PF 60 MCG/0.5 ML Syringe IM ONE (11:15)
--- NOTE | 2016-12-17 11:24 | PCM.SN ---
- Free Text/Narrative Note: 12/17/16 [id number] five [place] double lumen PICC line inserted through the right anticubital vein using sterile technique catheter tip on the last chest x-ray was in the superior vena cava catheter flushes well and is well secured
[2016-12-17] MEDS: Losartan 50 MG Tab PO SCH (11:31)
[2016-12-17] MEDS: Aspirin 81 MG Tab.EC PO SCH (11:31)
[2016-12-17] MEDS: Memantine 10 MG Tab PO SCH (11:31)
[2016-12-17] MEDS: Clopidogrel 75 MG Tab PO SCH (11:32)
[2016-12-17 11:37] VITALS: BP 158/58
[2016-12-17] MEDS ORDERED: Nafcillin 2 GM in Sodium Chloride 0.9% 100 ML IV SCH (12:00)
--- NOTE | 2016-12-17 13:02 | CR ---
CLINICAL HISTORY: 71-year-old female PICC line placement. INTERPRETATION: 1. AP portable chest film (1054 hours) confirms long-arm catheter on the right with the tip lying in the region of the right atrium. 2. AP portable chest film (1102 hours) confirms satisfactory "pull back" and relocation long-arm rig ht PIC catheter, now with tip upper mediastinum right of midline (superior vena cava). Chronic severe arthritic changes both shoulders. Hypertrophic arthritis of the spine. Normal cardiac silhouette without alveolar edema or dependent effusion. No lung mass, hilar lymphadenopathy or focal lobar pneumonia. CONCLUSION: Satisfactory PICC line placement.
--- NOTE | 2016-12-17 16:35 | PCM.DCSUM1 ---
Discharge Summary - Hospital Course Brief History: Patient is a 71 year old female was brought in [facility] unresponsiveness. Has history of dementia, hypertension, recurrent TIA, Echo showing moderate aortic stenosis. Patient lives independently at home. - Discharge Data Discharge Date: 12/17/16 Discharge Disposition: DC/Tfer W/I Hosp To [place] [id number] Condition: Good - Discharge Diagnosis/Problem(s) (1) Bacteremia SNOMED Code(s): 3053064 ICD Code: R78.81 - BACTEREMIA Status: Acute (2) Hyponatremia SNOMED Code(s): 74494346 ICD Code: E87.1 - HYPO-OSMOLALITY AND HYPONATREMIA Status: Acute Priority : Medium (3) TIA (transient ischemic attack) SNOMED Code(s): 684262495, 930917916 ICD Code: G45.9 - TRANSIENT CEREBRAL ISCHEMIC ATTACK, UNSPECIFIED Status: Acute - Patient Summary/Data Consults: Consultations 12/14/16 00:21 OT Evaluation and Treatment [CONS] Routine PT Evaluation and Treatment [CONS] Routine Hospital Course: On admission, work up for stroked did not show new acute findings. Brain MRI with MRA showed chronic microvascular ischemic disease. PT and OT were also consulted. Patient was noted to have leukocytosis, no obvious signs of infection. The repeat WBC showed an increase in WBC and blood cultures showed later MSSA. CT scan abdomen and pelvis only showed diverticulosis not inflamed, questionable thickened gallbladder wall thought patient has been tolerated her diet and alkphos has been normal. She was started on Nafcilin every 6 hours. Patient's old echo showed moderate aortic stenosis and another Echo was ordered. She also has a history of knee replacement. She was also noted have a mildly elevated CK and this has been trending down. Potassium on the otherhand was mildly low. Troponins negative. She had episodes of fever, Tmax 38.8 2016. On the day of discharge to [facility], she had a PICC line inserted for continued antibiotics. The repeat blood culture so far has been negative. - Discharge Plan Home Medications: Home Meds Aspirin [[place] Aspirin] 81 mg PO DAILY 04/08/15 [History] Donepezil HCl 10 mg PO BEDTIME 04/08/15 [History] Escitalopram [Lexapro] 15 mg PO BEDTIME 04/08/15 [History] Losartan Potassium [Cozaar] 100 mg PO DAILY 04/08/15 [History] Memantine [Namenda] 10 mg PO BID 04/08/15 [History] risperiDONE [RisperiDAL] 0.375 mg PO BEDTIME 04/08/15 [History] Hydrochlorothiazide 25 mg PO DAILY #30 tablet 04/10/15 [Rx] Clopidogrel [Plavix] 75 mg PO DAILY #30 tablet 07/09/16 [Rx] Pantoprazole Sodium [Protonix] 20 mg PO DAILY 12/14/16 [History] Simvastatin [Zocor] 20 mg PO BEDTIME 12/14/16 [History] Referrals: PCP,Unknown [Primary Care Provider] - - General Info Date of Service: 12/17/16 Functional Status: Reports: pain controlled, tolerating diet, ambulating, urinating - Review of Systems General: Reports: no symptoms HEENT: Reports: no symptoms Pulmonary: Reports: no symptoms Cardiovascular: Reports: no symptoms Gastrointestinal: Reports: No symptoms - Patient Data Vitals - Most Recent: Last Vital Signs Temp 36.4 C 12/17/16 11:00 Pulse 62 12/17/16 11:00 Resp 20 12/17/16 11:00 BP 158/58 H 12/17/16 11:31 Pulse Ox 96 12/17/16 11:00 Weight - Most Recent: 84.867 kg I&O - Last 24 hours: Intake & Output 12/17/16 12/17/16 12/17/16 06:59 14:59 22:59 Intake Total 500 Output Total 700 Balance -200 Lab Results - Last 24 hrs: Laboratory Results - last 24 hr 12/17/16 12/17/16 Range/Units 06:18 06:18 Sodium 134 L (135-145) mmol/L Potassium 3.5 L (3.6-5.0) mmol/L Chloride 99 L (101-111) mmol/L Carbon Dioxide 29.0 (21.0-31.0) mmol/L Anion Gap 9.5 BUN 9 (7-18) mg/dL Creatinine 0.7 (0.6-1.3) mg/dL Est Cr Clr Drug Dosing 60.09 mL/min Estimated GFR (MDRD) > 60 Glucose 89 (74-105) mg/dL Calcium 8.7 (8.4-10.2) mg/dl Magnesium 1.9 (1.8-2.5) mg/dL ROSMERY Results - Last 24 hrs: Microbiology 12/15/16 05:55 Aerobic Blood Culture - Preliminary Blood - Venous Anaerobic Blood Culture - Preliminary NO GROWTH AFTER 2 DAYS 12/15/16 06:00 Aerobic Blood Culture - Preliminary Blood - Venous - Lab Draw NO GROWTH AFTER 2 DAYS Anaerobic Blood Culture - Preliminary NO GROWTH AFTER 2 DAYS Med Orders - Current: Current Medications Discontinued Medications Acetaminophen (Tylenol) 650 mg PO Q4H PRN PRN Reason: Pain (Mild 1-3)/fever Last Admin: 12/16/16 00:22 Dose: 650 mg Aspirin (Halfprin) 81 mg PO DAILY [facility] Last Admin: 12/17/16 11:31 Dose: 81 mg Barium Sulfate (Readi-Cat 2) 900 ml PO ONETIME ONE Stop: 12/14/16 11:25 Last Admin: 12/14/16 13:34 Dose: 900 ml Clopidogrel Bisulfate (Plavix) 75 mg PO DAILY [facility] Last Admin: 12/17/16 11:32 Dose: 75 mg Donepezil HCl (Aricept) 10 mg PO QPM [facility] Escitalopram Oxalate (Lexapro) 15 mg PO BEDTIME [facility] Last Admin: 12/16/16 21:44 Dose: 15 mg Heparin Sodium (Porcine) (Heparin Sodium) 5,000 units SUBCUT Q8HR [facility] Last Admin: 12/17/16 05:35 Dose: 5,000 units Hydrochlorothiazide (Hydrochlorothiazide) 25 mg PO DAILY [facility] Sodium Chloride (Normal Saline) 1,000 mls @ 100 mls/hr IV ASDIRECTED [facility] Last Admin: 12/15/16 08:40 Dose: 100 mls/hr Levofloxacin/Dextrose 750 mg/ (Premix) 150 mls @ 100 mls/hr IV Q24H [facility] Last Admin: 12/14/16 09:42 Dose: 100 mls/hr Piperacillin Sod/Tazobactam (Sod 3.375 gm/ Sodium Chloride) 100 mls @ 200 mls/ hr IV Q6HR [facility] Last Admin: 12/16/16 05:50 Dose: 200 mls/hr Sodium Chloride (Normal Saline) 1,000 mls @ 75 mls/hr IV ASDIRECTED [facility] Last Admin: 12/16/16 02:13 Dose: 75 mls/hr Nafcillin Sodium 2 gm/ Sodium (Chloride) 100 mls @ 100 mls/hr IV Q6HR [facility] Last Admin: 12/17/16 05:46 Dose: 100 mls/hr Nafcillin Sodium 2 gm/ Sodium (Chloride) 100 mls @ 100 mls/hr IV Q6HR [facility] Influenza Virus Vaccine (Fluzone/Fluarix Vaccine) 60 mcg IM .ONCE ONE Stop: 12/17/16 11:16 Last Admin: 12/17/16 11:34 Dose: 60 mcg Iopamidol (Isovue-300 (61%)) 75 ml IVPUSH ONETIME ONE Stop: 12/14/16 11:25 Last Admin: 12/14/16 15:28 Dose: 75 ml Losartan Potassium (Cozaar) 100 mg PO DAILY [facility] Last Admin: 12/17/16 11:31 Dose: 100 mg Memantine (Namenda) 10 mg PO DAILY [facility] Last Admin: 12/14/16 13:38 Dose: 10 mg Memantine (Namenda) 10 mg PO BID [facility] Last Admin: 12/17/16 11:31 Dose: 10 mg Non-Formulary Medication (Pantoprazole Sodium [Protonix]) 20 mg PO DAILY [facility] Pantoprazole Sodium (Protonix) 40 mg PO ACBRK [facility] Last Admin: 12/17/16 05:35 Dose: 40 mg Potassium Chloride (Klor-Con 10) 40 meq PO ONETIME ONE Stop: 12/14/16 00:22 Last Admin: 12/14/16 01:02 Dose: 40 meq Potassium Chloride (Klor-Con 10) 20 meq PO TIDMEALS [facility] Stop: 12/15/16 08:01 Last Admin: 12/15/16 08:32 Dose: 20 meq Risperidone (Risperidal) 0.375 mg PO BEDTIME [facility] Last Admin: 12/16/16 21:41 Dose: 0.375 mg Simvastatin (Zocor) 20 mg PO BEDTIME [facility] Last Admin: 12/16/16 21:40 Dose: 20 mg Sodium Chloride (Saline Flush) 10 ml FLUSH ASDIRECTED PRN PRN Reason: Keep Vein Open Last Admin: 12/17/16 11:37 Dose: 10 ml - Exam General: Reports: alert Lungs: Reports: Clear to auscultation, Normal respiratory effort Cardiovascular: Reports: regular rate, regular rhythm, murmurs Abdomen: Reports: bowel sounds present, soft, no tenderness *Q Meaningful Use (DIS) - VTE *Q VTE Criteria *Q: - Stroke *Q Stroke Criteria *Q: - AMI *Q AMI Criteria *Q:
== END 2016-12-17 12:20 | disposition swing bed (61) | DRG 69 ==
LOC: DL.ED 20:21 → UNDOADMIN 23:36 → DL.MS 23:36 → UNDODISIN 12-17 12:20
PROVIDERS: ADMIT Internal Medicine; ATTEND Internal Medicine
DX: R40.20 Unspecified coma (principal); R53.1 Weakness; R32 Unspecified urinary incontinence; G45.9 Transient cerebral ischemic attack, unspecified; E87.1 Hypo-osmolality and hyponatremia; R55 Syncope and collapse; F03.90 Unspecified dementia, unspecified severity, without behavioral disturbance, psychotic disturbance, mood disturbance, and anxiety; Z86.73 Personal history of transient ischemic attack (TIA), and cerebral infarction without residual deficits; E78.5 Hyperlipidemia, unspecified; I10 Essential (primary) hypertension; Z79.82 Long term (current) use of aspirin; K21.9 Gastro-esophageal reflux disease without esophagitis; F41.8 Other specified anxiety disorders; R50.9 Fever, unspecified; D72.829 Elevated white blood cell count, unspecified; R31.9 Hematuria, unspecified; E66.9 Obesity, unspecified; Z68.33 Body mass index [BMI] 33.0-33.9, adult; Z23 Encounter for immunization
CPT/HCPCS: 36415; 36569; 70450; 70544; 70551; 71010; 74178; 80048; 80053; 80061; 81001; 82550; 82553; 83605; 83735; 84295; 84484; 85025; 85610; 85651; 86140; 87040; 87077; 87086; 87186; 87804; 90686; 93005; 93010; 97161-GP; 97165-GO; 97532-GO; 99285; A9270-GY; G0008; J1644; J1956; J2543; J7030; J7050; Q9967; S0032

== ENCOUNTER 2017-02-18 13:02 | Emergency (ER) | payer MEDICARE, MEDICAID, OTHER, SELFPAY ==
[2017-02-18 13:06] VITALS: BP 107/37
--- NOTE | 2017-02-18 13:36 | EDM.PDOC ---
ED HPI GENERAL MEDICAL PROBLEM - General Chief Complaint: Neurological Problem Stated Complaint: AMB Time Seen by Provider: 02/18/17 13:14 Source of Information: Reports: Patient, Family History Limitations: Reports: Altered mental status (history of dementia) - History of Present Illness INITIAL COMMENTS - FREE TEXT/NARRATIVE: This 71 yo female patient was brought to the ED by [facility] due to an episode of very low blood pressure. The patient reports she may have fell, but the patient' s son reports that the patient had an episode of near syncope. The patient was sitting in a chair getting ready for lunch when she slumped over in the chair. The son report the patient's blood pressure was 87/40. According to the son, the patient has been having increased problems with lower blood pressures. The patient has been seen by Dr. Luke (Neurology) and was advised that she does not have any signs of TIA's or strokes. The patient has an appointment with a urologist soon for frequent urinary tract infections. The patient normally sees Dr. Sheridan as a primary care. Onset: today Duration: Hour(s):, Improving Location: Reports: generalized Quality: Reports: Dull Severity: moderate Improves with: Reports: None Worsens with: Reports: None Context: Reports: Other Associated Symptoms: Reports: weakness - Related Data Allergies Allergy/AdvReac Type Severity Reaction Status Date / Time meperidine HCl [From Demerol] Allergy UNKNOWN Verified 02/18/17 13:08 Home Meds: Home Meds Aspirin [[place] Aspirin] 81 mg PO DAILY 04/08/15 [History] Donepezil HCl 10 mg PO BEDTIME 04/08/15 [History] Escitalopram [Lexapro] 15 mg PO BEDTIME 04/08/15 [History] Losartan Potassium [Cozaar] 100 mg PO DAILY 04/08/15 [History] Memantine [Namenda] 10 mg PO BID 04/08/15 [History] risperiDONE [RisperiDAL] 0.375 mg PO BEDTIME 04/08/15 [History] Hydrochlorothiazide 25 mg PO DAILY #30 tablet 04/10/15 [Rx] Clopidogrel [Plavix] 75 mg PO DAILY #30 tablet 07/09/16 [Rx] Pantoprazole Sodium [Protonix] 20 mg PO DAILY 12/14/16 [History] Simvastatin [Zocor] 20 mg PO BEDTIME 12/14/16 [History] amLODIPine [Norvasc] 5 mg PO DAILY #30 tablet 01/05/17 [Rx] Past Medical History - Past Health History Medical/Surgical History: Denies Medical/Surgical History HEENT History: Reports: Impaired vision Cardiovascular History: Reports: Heart murmur, High cholesterol, Hypertension Other Cardiovascular History: history of bradycardia Gastrointestinal History: Reports: GERD, Other (see below) Other Gastrointestinal History: colonic diverticular disease [employer] History: Reports: Other OB/BYN History: 1 NVD Neurological History: Reports: TIA, Other (see below) Other Neuro History: dementia Psychiatric History: Reports: Anxiety, Dementia, Depression, Psychosis - Past Surgical History HEENT Surgical History: Reports: Cataract surgery GI Surgical History: Reports: Colonoscopy Musculoskeletal Surgical History: Reports: Joint replacement, Knee replacement, Other (see below) Other Musculoskeletal Surgeries/Procedures:: rotator cuff repair bilateral Social & Family History - Family History Family Medical History: Noncontributory - Tobacco Use Smoking Status *Q: Never Smoker Second Hand Smoke Exposure: No - Caffeine Use Caffeine Use: Reports: Coffee - Alcohol Use Days Per Week of Alcohol Use: 0 - Recreational Drug Use Recreational Drug Use: No - Living Situation & Occupation Living situation: Reports: , alone Occupation: retired ED ROS GENERAL - Review of Systems Review Of Systems: ROS reveals no pertinent complaints other than HPI. ED EXAM, GENERAL - Physical Exam Exam: See Below Exam Limited By: No limitations General Appearance: alert, WD/WN, moderate distress Eye Exam: bilateral eye: EOMI, normal inspection, PERRL Ears: normal external exam, normal canal, hearing grossly normal, normal TMs Nose: normal inspection, normal mucosa, no blood Throat/Mouth: Normal inspection, Normal lips, Normal teeth, Normal gums, Normal oropharynx, Normal voice, No airway compromise Head: atraumatic, normocephalic Neck: normal inspection, supple, non-tender, full range of motion Respiratory/Chest: no respiratory distress, lungs clear, normal breath sounds, no accessory muscle use, chest non-tender Cardiovascular: normal peripheral pulses, regular rate, rhythm, no edema, no gallop, no JVD, no murmur, no rub GI/Abdominal: normal bowel sounds, soft, non tender, no organomegaly, no distention, no abnormal bruit, no mass (Female) Exam: Deferred Rectal (Female) Exam: Deferred Back Exam: normal inspection, full range of motion, NT Extremities: normal inspection, normal range of motion, non-tender, normal capillary refill, no pedal edema Neurological: alert, oriented, CN II-XII intact, normal cognition, normal gait, normal reflexes, no motor/sensory deficits Psychiatric: normal affect, normal mood Skin Exam: Warm, Dry, Intact, Normal color, No rash Lymphatic: no adenopathy Course - Vital Signs Last Recorded V/S: Last Vital Signs Temp 36.3 C 02/18/17 13:03 Pulse 59 L 02/18/17 13:03 Resp 20 02/18/17 13:03 BP 107/37 L 02/18/17 13:03 Pulse Ox 100 02/18/17 13:03 Orthostatic Blood Pressure [ 115/84 Standing] Orthostatic Blood Pressure [ 125/57 Sitting] Orthostatic Blood Pressure [ 121/40 Supine] - Orders/Labs/Meds Orders: Active Orders 24 hr Category Date Time Status EKG Documentation Completion [RC] URGENT Care 02/18/17 13:33 Active Orthostatic Vital Signs [RC] ASDIRECTED Care 02/18/17 15:33 Active CULTURE BLOOD [BC] Stat Lab 02/18/17 13:48 Received Labs: Laboratory Tests 02/18/17 02/18/17 02/18/17 Range/Units 13:48 13:48 13:48 WBC 6.6 (5.0-10.0) 10^3/uL RBC 4.05 L (4.2-5.4) 10^6/uL Hgb 12.6 (12.0-16.0) g/dL Hct 36.9 L (37.0-47.0) % MCV 91.1 (80-100) fL MCH 31.1 (27.0-34.0) pg MCHC 34.1 (33.0-35.0) g/dL Plt Count 241 (150-450) 10^3/uL Neut % (Auto) 71.1 (42.2-75.2) % Lymph % (Auto) 17.3 L (20.5-50.1) % [place] % (Auto) 8.5 H (2-8) % Eos % (Auto) 2.6 (1.0-3.0) % Baso % (Auto) 0.5 (0.0-1.0) % Sodium (135-145) mmol/L Potassium (3.6-5.0) mmol/L Chloride (101-111) mmol/L Carbon Dioxide (21.0-31.0) mmol/L Anion Gap BUN (7-18) mg/dL Creatinine (0.6-1.3) mg/dL Est Cr Clr Drug Dosing mL/min Estimated GFR (MDRD) BUN/Creatinine Ratio Glucose (74-105) mg/dL Lactic Acid 1.1 (0.5-2.2) mmol/L Calcium (8.4-10.2) mg/dl Magnesium 2.3 (1.8-2.5) mg/dL Total Bilirubin (0.2-1.0) mg/dL AST (10-42) IU/L ALT (10-60) IU/L Alkaline Phosphatase (42-121) IU/L Troponin I (0.00-0.02) ng/ml Total Protein (6.7-8.2) g/dl Albumin (3.2-5.5) g/dl Globulin Albumin/Globulin Ratio Urine Color (YELLOW) Urine Appearance (CLEAR) Urine pH (5.0-9.0) Ur Specific [place] (1.005-1.030) Urine Protein (NEGATIVE) Urine Glucose (UA) (NEGATIVE) Urine Ketones (NEGATIVE) Urine Occult Blood (NEGATIVE) Urine Nitrite (NEGATIVE) Urine Bilirubin (NEGATIVE) Urine Urobilinogen (0.2-1.0) mg/dL Ur Leukocyte Esterase (NEGATIVE) Urine RBC /HPF Urine WBC (0-5/HPF) /HPF Ur Epithelial Cells /HPF Urine Bacteria (0-FEW/HPF) /HPF Fine Granular Casts (0/LPF) /LPF Urine Mucus /LPF 02/18/17 02/18/17 Range/Units 13:48 15:06 WBC (5.0-10.0) 10^3/uL RBC (4.2-5.4) 10^6/uL Hgb (12.0-16.0) g/dL Hct (37.0-47.0) % MCV (80-100) fL MCH (27.0-34.0) pg MCHC (33.0-35.0) g/dL Plt Count (150-450) 10^3/uL Neut % (Auto) (42.2-75.2) % Lymph % (Auto) (20.5-50.1) % [place] % (Auto) (2-8) % Eos % (Auto) (1.0-3.0) % Baso % (Auto) (0.0-1.0) % Sodium 131 L (135-145) mmol/L Potassium 4.1 (3.6-5.0) mmol/L Chloride 92 L (101-111) mmol/L Carbon Dioxide 32.0 H (21.0-31.0) mmol/L Anion Gap 11.1 BUN 20 H (7-18) mg/dL Creatinine 1.2 (0.6-1.3) mg/dL Est Cr Clr Drug Dosing 35.05 mL/min Estimated GFR (MDRD) 44 BUN/Creatinine Ratio 16.66 Glucose 126 H (74-105) mg/dL Lactic Acid (0.5-2.2) mmol/L Calcium 9.5 (8.4-10.2) mg/dl Magnesium (1.8-2.5) mg/dL Total Bilirubin 0.6 (0.2-1.0) mg/dL AST 21 (10-42) IU/L ALT 15 (10-60) IU/L Alkaline Phosphatase 68 (42-121) IU/L Troponin I < 0.02 (0.00-0.02) ng/ml Total Protein 7.4 (6.7-8.2) g/dl Albumin 4.1 (3.2-5.5) g/dl Globulin 3.3 Albumin/Globulin Ratio 1.24 Urine Color Dark yellow (YELLOW) Urine Appearance Slightly cloudy (CLEAR) Urine pH 7.0 (5.0-9.0) Ur Specific [place] 1.015 (1.005-1.030) Urine Protein Trace H (NEGATIVE) Urine Glucose (UA) Negative (NEGATIVE) Urine Ketones Negative (NEGATIVE) Urine Occult Blood Negative (NEGATIVE) Urine Nitrite Negative (NEGATIVE) Urine Bilirubin Negative (NEGATIVE) Urine Urobilinogen 0.2 (0.2-1.0) mg/dL Ur Leukocyte Esterase Moderate H (NEGATIVE) Urine RBC 0-5 /HPF Urine WBC 10-20 H (0-5/HPF) /HPF Ur Epithelial Cells Few /HPF Urine Bacteria Rare (0-FEW/HPF) /HPF Fine Granular Casts Few H (0/LPF) /LPF Urine Mucus Few H /LPF Meds: Medications Discontinued Medications Generic Name Dose Route Start Last Admin Trade Name Shant PRN Reason Stop Dose Admin Sodium Chloride 1,000 mls @ 999 mls/hr 02/18/17 14:26 02/18/17 14:31 Normal Saline IV 02/18/17 15:26 999 mls/hr .BOLUS ONE Administration Departure - Departure Time of Disposition: 16:06 Disposition: Home, Self-Care 01 Condition: fair Clinical Impression: Hypotension Qualifiers: Hypotension type: other hypotension type Qualified Code(s): I95.89 - Other hypotension Instructions: Hypotension, [id number], Near-Syncope, [id number] Forms: ED Department Discharge Care Plan Goals: The patient and her family were advised of the examination, lab, and EKG results during the visit. The patient was encouraged to follow-up with her primary care facility for continued evaluation and possible medication changes. If the patient has any additional symptoms or concerns, the patient should follow-up with her primary care facility or return to the emergency department. - My Orders Last 24 Hours: My Active Orders 02/18/17 13:33 EKG Documentation Completion [RC] URGENT 02/18/17 13:48 CULTURE BLOOD [BC] Stat 02/18/17 15:33 Orthostatic Vital Signs [RC] ASDIRECTED - Assessment/Plan Last 24 Hours: My Active Orders 02/18/17 13:33 EKG Documentation Completion [RC] URGENT 02/18/17 13:48 CULTURE BLOOD [BC] Stat 02/18/17 15:33 Orthostatic Vital Signs [RC] ASDIRECTED
[2017-02-18 14:13] LABS: CHLORIDE,CL 92 mmol/L (101-111); SODIUM,NA 131 mmol/L (135-145)
[2017-02-18] MEDS ORDERED: Sodium Chloride 0.9% 1,000 ML IV ONE (14:26)
--- NOTE | 2017-02-22 11:22 | EKG ---
02/18/2017 - BRIANNA ELIZABETH - TIME: 10:43 p.m. EKG shows sinus bradycardia. [facility] /[id number]
== END 2017-02-18 16:25 | disposition home or self-care (01) ==
LOC: DL.ED 13:02
DX: I95.89 Other hypotension (principal); R01.1 Cardiac murmur, unspecified; E78.00 Pure hypercholesterolemia, unspecified; I10 Essential (primary) hypertension; K21.9 Gastro-esophageal reflux disease without esophagitis; Z86.73 Personal history of transient ischemic attack (TIA), and cerebral infarction without residual deficits; F41.9 Anxiety disorder, unspecified; F32.9 Major depressive disorder, single episode, unspecified; F03.90 Unspecified dementia, unspecified severity, without behavioral disturbance, psychotic disturbance, mood disturbance, and anxiety; Z79.82 Long term (current) use of aspirin; Z79.899 Other long term (current) drug therapy; Z88.8 Allergy status to other drugs, medicaments and biological substances; Z98.49 Cataract extraction status, unspecified eye
CPT/HCPCS: 36415; 80053; 81001; 83605; 83735; 84484; 85025; 87040; 93005; 96360; 99284; J7030; 93010

== ENCOUNTER 2017-05-11 21:42 | Inpatient (IN) | payer MEDICARE, BC, MEDICAID ==
[2017-05-11 22:24] LABS: CHLORIDE,CL 98 mmol/L (101-111); SODIUM,NA 137 mmol/L (135-145)
--- NOTE | 2017-05-12 02:05 | EDM.PDOC ---
ED HPI GENERAL MEDICAL PROBLEM - General Chief Complaint: Neurological Problem Stated Complaint: COMING BY AMBULANCE Time Seen by Provider: 05/11/17 21:45 Source of Information: Reports: EMS, Family History Limitations: Reports: Other - History of Present Illness INITIAL COMMENTS - FREE TEXT/NARRATIVE: ED via ambulance. family went to check on patient this alma and found patient sitting on kitchen floor and rocking chair in living room tipped over. Patient unable to recall fall. Son stated did not attempt to stand patient , called 911. Patient remote hx of fall, is supposed to use walker but does not unless prompted. Patient still living independently and family goes in at least 4 times daily. Last noted to be well at 12 noon. Ems notes patient brief 5 sec gaze. Has been alert and talking enroute and on arrival. Hx alzheimers, Baseline poor recall but still tends to cover memory lapses. Patient denies complaint of pain on arrival. Unable to recall fall. Family present and notes this behavior and response to questioning to be usual for patient. Onset: Today Duration: Hour(s): - Related Data Allergies Allergy/AdvReac Type Severity Reaction Status Date / Time meperidine HCl [From Demerol] Allergy UNKNOWN Verified 05/12/17 01:05 Home Meds: Home Meds Aspirin [[place] Aspirin] 81 mg PO DAILY 04/08/15 [History] Donepezil HCl 10 mg PO BEDTIME 04/08/15 [History] Escitalopram [Lexapro] 15 mg PO BEDTIME 04/08/15 [History] Losartan Potassium [Cozaar] 100 mg PO DAILY 04/08/15 [History] Memantine [Namenda] 10 mg PO BID 04/08/15 [History] risperiDONE [RisperiDAL] 1.5 mg PO BEDTIME 04/08/15 [History] Hydrochlorothiazide 25 mg PO DAILY #30 tablet 04/10/15 [Rx] Clopidogrel [Plavix] 75 mg PO DAILY #30 tablet 07/09/16 [Rx] Pantoprazole Sodium [Protonix] 20 mg PO DAILY 12/14/16 [History] Simvastatin [Zocor] 40 mg PO BEDTIME 12/14/16 [History] amLODIPine [Norvasc] 5 mg PO BEDTIME 05/12/17 [History] Past Medical History - Past Health History Medical/Surgical History: Denies Medical/Surgical History HEENT History: Reports: Impaired Vision Cardiovascular History: Reports: Heart Murmur, High Cholesterol, Hypertension Other Cardiovascular History: history of bradycardia Gastrointestinal History: Reports: GERD Other Gastrointestinal History: colonic diverticular disease Genitourinary History: Reports: Urinary Incontinence, UTI, Recurrent [employer] History: Reports: Other OB/BYN History: 1 NVD Musculoskeletal History: Reports: Arthritis Neurological History: Reports: TIA, Other (See Below) Other Neuro History: dementia Psychiatric History: Reports: Anxiety, Dementia, Depression, Psychosis - Past Surgical History HEENT Surgical History: Reports: Cataract Surgery Musculoskeletal Surgical History: Reports: Joint Replacement, Knee Replacement Social & Family History - Family History Family Medical History: Noncontributory - Tobacco Use Smoking Status *Q: Never Smoker Second Hand Smoke Exposure: No - Caffeine Use Caffeine Use: Reports: Coffee - Alcohol Use Days Per Week of Alcohol Use: 0 - Recreational Drug Use Recreational Drug Use: No - Living Situation & Occupation Living situation: Reports: , Alone Occupation: Retired ED ROS GENERAL - Review of Systems Review Of Systems: ROS reveals no pertinent complaints other than HPI. ED EXAM, NEURO - Physical Exam Exam: See Below Exam Limited By: No Limitations General Appearance: Alert, No Apparent Distress, Obese Eye Exam: Bilateral Eye: EOMI, PERRL (2mm equal bilaterally) Ears: Normal External Exam Nose: Normal Inspection Throat/Mouth: Normal Inspection Head Exam: Other (superficial laceration to mid right forehead slight swelling to forehead with puprle bruising across nasla bridge and purple discolloration below right eye initially spreading left eye, No eye lid swelling noted. ) Neck: Normal Inspection, Full Range of Motion. No: Tender Lateral, Tender Midline Respiratory/Chest: No Respiratory Distress, Lungs Clear Cardiovascular: Normal Peripheral Pulses, Regular Rate, Rhythm GI/Abdominal: Normal Bowel Sounds, Soft Neurological: Alert, Normal Mood/Affect, Normal Dorsiflexion, Normal Plantar Flexion, No Motor/Sensory Deficits, Other (recognition of family and facility. 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 ). No: Abnormal Finger to Nose Back Exam: Normal Inspection Extremities: Normal Inspection, Normal Range of Motion Psychiatric: Normal Affect Skin Exam: Warm, Dry, Intact, Ecchymosis. No: Normal Color Course - Vital Signs Last Recorded V/S: Last Vital Signs Temp 97.7 F 05/12/17 01:07 Pulse 58 L 05/12/17 01:07 Resp 18 05/12/17 01:07 BP 157/58 H 05/12/17 01:07 Pulse Ox 98 05/12/17 02:17 - Orders/Labs/Meds Orders: Medication Orders Acetaminophen (Tylenol) 650 mg PO Q4H PRN PRN Reason: Pain (Mild 1-3)/fever Last Admin: 05/12/17 02:51 Dose: 650 mg Amlodipine Besylate (Norvasc) 5 mg PO BEDTIME [facility] Aspirin (Halfprin) 81 mg PO DAILY [facility] Clopidogrel Bisulfate (Plavix) 75 mg PO DAILY [facility] Docusate Sodium (Colace) 100 mg PO BID PRN PRN Reason: Constipation Donepezil HCl (Aricept) 10 mg PO BEDTIME [facility] Escitalopram Oxalate (Lexapro) 15 mg PO BEDTIME [facility] Heparin Sodium (Porcine) (Heparin Sodium) 5,000 units SUBCUT Q8HR [facility] Hydrochlorothiazide (Hydrochlorothiazide) 25 mg PO DAILY [facility] Sodium Chloride (Normal Saline) 1,000 mls @ 75 mls/hr IV ASDIRECTED [facility] Last Admin: 05/12/17 02:53 Dose: 75 mls/hr Ciprofloxacin/Dextrose 200 mg/ (Premix) 100 mls @ 100 mls/hr IV Q12H [facility] Last Admin: 05/12/17 02:51 Dose: 100 mls/hr Losartan Potassium (Cozaar) 100 mg PO DAILY [facility] Magnesium Hydroxide (Milk Of Magnesia) 30 ml PO Q12H PRN PRN Reason: Constipation Memantine (Namenda) 10 mg PO BID [facility] Non-Formulary Medication (Pantoprazole Sodium [Protonix]) 20 mg PO DAILY [facility] Ondansetron HCl (Zofran Odt) 4 mg PO Q4H PRN PRN Reason: nausea, able to take PO Risperidone (Risperidal) 1.5 mg PO BEDTIME [facility] Simvastatin (Zocor) 40 mg PO BEDTIME [facility] Sodium Chloride (Saline Flush) 10 ml FLUSH ASDIRECTED PRN PRN Reason: Keep Vein Open Labs: Laboratory Tests 05/11/17 05/11/17 05/11/17 Range/Units 21:57 21:57 21:57 WBC 14.2 H (5.0-10.0) 10^3/uL RBC 4.13 L (4.2-5.4) 10^6/uL Hgb 12.5 (12.0-16.0) g/dL Hct 37.4 (37.0-47.0) % MCV 90.6 (80-100) fL MCH 30.3 (27.0-34.0) pg MCHC 33.4 (33.0-35.0) g/dL Plt Count 183 (150-450) 10^3/uL Neut % (Auto) 78.8 H (42.2-75.2) % Lymph % (Auto) 13.3 L (20.5-50.1) % Banner % (Auto) 6.2 (2-8) % Eos % (Auto) 1.5 (1.0-3.0) % Baso % (Auto) 0.2 (0.0-1.0) % PT 9.9 (9.0-12.0) SEC INR 1.0 (0.9-1.2) Sodium 137 (135-145) mmol/L Potassium 3.7 (3.6-5.0) mmol/L Chloride 98 L (101-111) mmol/L Carbon Dioxide 30.0 (21.0-31.0) mmol/L Anion Gap 12.7 BUN 20 H (7-18) mg/dL Creatinine 1.0 (0.6-1.3) mg/dL Est Cr Clr Drug Dosing 42.06 mL/min Estimated GFR (MDRD) 55 BUN/Creatinine Ratio 20.00 Glucose 116 H (74-105) mg/dL Calcium 9.7 (8.4-10.2) mg/dl Total Bilirubin 0.5 (0.2-1.0) mg/dL AST 22 (10-42) IU/L ALT 16 (10-60) IU/L Alkaline Phosphatase 57 (42-121) IU/L Creatine Kinase 268 H (26-174) IU/L Troponin I < 0.02 (0.00-0.02) ng/ml Total Protein 6.5 L (6.7-8.2) g/dl Albumin 4.0 (3.2-5.5) g/dl Globulin 2.5 Albumin/Globulin Ratio 1.60 Urine Color (YELLOW) Urine Appearance (CLEAR) Urine pH (5.0-9.0) Ur Specific [place] (1.005-1.030) Urine Protein (NEGATIVE) Urine Glucose (UA) (NEGATIVE) Urine Ketones (NEGATIVE) Urine Occult Blood (NEGATIVE) Urine Nitrite (NEGATIVE) Urine Bilirubin (NEGATIVE) Urine Urobilinogen (0.2-1.0) mg/dL Ur Leukocyte Esterase (NEGATIVE) Urine RBC /HPF Urine WBC (0-5/HPF) /HPF Ur Epithelial Cells /HPF Urine Bacteria (0-FEW/HPF) /HPF Urine Mucus /LPF 05/11/17 Range/Units 23:10 WBC (5.0-10.0) 10^3/uL RBC (4.2-5.4) 10^6/uL Hgb (12.0-16.0) g/dL Hct (37.0-47.0) % MCV (80-100) fL MCH (27.0-34.0) pg MCHC (33.0-35.0) g/dL Plt Count (150-450) 10^3/uL Neut % (Auto) (42.2-75.2) % Lymph % (Auto) (20.5-50.1) % Banner % (Auto) (2-8) % Eos % (Auto) (1.0-3.0) % Baso % (Auto) (0.0-1.0) % PT (9.0-12.0) SEC INR (0.9-1.2) Sodium (135-145) mmol/L Potassium (3.6-5.0) mmol/L Chloride (101-111) mmol/L Carbon Dioxide (21.0-31.0) mmol/L Anion Gap BUN (7-18) mg/dL Creatinine (0.6-1.3) mg/dL Est Cr Clr Drug Dosing mL/min Estimated GFR (MDRD) BUN/Creatinine Ratio Glucose (74-105) mg/dL Calcium (8.4-10.2) mg/dl Total Bilirubin (0.2-1.0) mg/dL AST (10-42) IU/L ALT (10-60) IU/L Alkaline Phosphatase (42-121) IU/L Creatine Kinase (26-174) IU/L Troponin I (0.00-0.02) ng/ml Total Protein (6.7-8.2) g/dl Albumin (3.2-5.5) g/dl Globulin Albumin/Globulin Ratio Urine Color Yellow (YELLOW) Urine Appearance Slightly cloudy (CLEAR) Urine pH 7.0 (5.0-9.0) Ur Specific [place] 1.015 (1.005-1.030) Urine Protein Negative (NEGATIVE) Urine Glucose (UA) Negative (NEGATIVE) Urine Ketones Negative (NEGATIVE) Urine Occult Blood Negative (NEGATIVE) Urine Nitrite Negative (NEGATIVE) Urine Bilirubin Negative (NEGATIVE) Urine Urobilinogen 0.2 (0.2-1.0) mg/dL Ur Leukocyte Esterase Moderate H (NEGATIVE) Urine RBC 0-5 /HPF Urine WBC 0-5 (0-5/HPF) /HPF Ur Epithelial Cells Moderate H /HPF Urine Bacteria Many H (0-FEW/HPF) /HPF Urine Mucus Few H /LPF Meds: Medications Generic Name Dose Route Start Last Admin Trade Name Freq PRN Reason Stop Dose Admin Acetaminophen 650 mg 05/12/17 02:17 05/12/17 02:51 Tylenol PO 650 mg Q4H PRN Administration Pain (Mild 1-3)/fever Amlodipine Besylate 5 mg 05/12/17 21:00 Norvasc PO BEDTIME [facility] Aspirin 81 mg 05/12/17 09:00 Halfprin PO DAILY [facility] Clopidogrel Bisulfate 75 mg 05/12/17 09:00 Plavix PO DAILY [facility] Docusate Sodium 100 mg 05/12/17 02:17 Colace PO BID PRN Constipation Donepezil HCl 10 mg 05/12/17 21:00 Aricept PO BEDTIME [facility] Escitalopram Oxalate 15 mg 05/12/17 21:00 Lexapro PO BEDTIME [facility] Heparin Sodium (Porcine) 5,000 units 05/12/17 06:00 Heparin Sodium SUBCUT Q8HR [facility] Hydrochlorothiazide 25 mg 05/12/17 09:00 Hydrochlorothiazide PO DAILY [facility] Sodium Chloride 1,000 mls @ 75 mls/hr 05/12/17 02:30 05/12/17 02:53 Normal Saline IV 75 mls/hr ASDIRECTED [facility] Administration Ciprofloxacin/Dextrose 200 mg/ 100 mls @ 100 mls/hr 05/12/17 02:00 05/12/17 02:51 Premix IV 100 mls/hr Q12H [facility] Administration Losartan Potassium 100 mg 05/12/17 09:00 Cozaar PO DAILY [facility] Magnesium Hydroxide 30 ml 05/12/17 02:17 Milk Of Magnesia PO Q12H PRN Constipation Memantine 10 mg 05/12/17 09:00 Namenda PO BID [facility] Non-Formulary Medication 20 mg 05/12/17 09:00 Pantoprazole Sodium [Protonix] PO DAILY [facility] Ondansetron HCl 4 mg 05/12/17 02:17 Zofran Odt PO Q4H PRN nausea, able to take PO Risperidone 1.5 mg 05/12/17 21:00 Risperidal PO BEDTIME [facility] Simvastatin 40 mg 05/12/17 21:00 Zocor PO BEDTIME [facility] Sodium Chloride 10 ml 05/12/17 02:32 Saline Flush FLUSH ASDIRECTED PRN Keep Vein Open - Radiology Interpretation Free Text/Narrative:: CT head negative for bleed. No fracures. Soft tissue contusion to forehead. - Re-Assessments/Exams Free Text/Narrative Re-Assessment/Exam: 05/12/17 02:20 Neuro unchanged. Slight increase in bruising below eyes Continues to deny pain, conversant with son. No recall of fall. Moving upper and lower extremities. Trauma team not activated on ED admission as EMS Reported concern for CVA Departure - Departure Time of Disposition: 00:25 Disposition: Admitted As Inpatient 65 Condition: Fair Clinical Impression: Fall in home Qualifiers: Encounter type: initial encounter Qualified Code(s): W19.XXXA - Unspecified fall, initial encounter; Y92.099 - Unspecified place in other non-institutional residence as the place of occurrence of the external cause Contusion of head Qualifiers: Encounter type: initial encounter Contusion of head detail: other part of head Qualified Code(s): S00.83XA - Contusion of other part of head, initial encounter Dementia Qualifiers: Dementia type: Alzheimer's disease Alzheimer's disease onset: unspecified onset Dementia behavioral disturbance: without behavioral disturbance Qualified Code(s): G30.9 - Alzheimer's disease, unspecified; F02.80 - Dementia in other diseases classified elsewhere without behavioral disturbance UTI (urinary tract infection) Qualifiers: Urinary tract infection type: acute cystitis Hematuria presence: with hematuria Qualified Code(s): N30.01 - Acute cystitis with hematuria - Discharge Information
[2017-05-12] MEDS ORDERED: Docusate Sodium 100 MG Cap PO PRN (02:17)
[2017-05-12] MEDS ORDERED: Magnesium Hydroxide 400 MG/5 ML Susp 30 ML Cup PO PRN (02:17)
[2017-05-12] MEDS ORDERED: Ondansetron 4 MG Tab.DIS PO PRN (02:17)
[2017-05-12] MEDS: Acetaminophen 325 MG Tab PO PRN ×2 (02:51→14:09)
[2017-05-12] MEDS: Ciprofloxacin in D5W 200 MG in Premix Bag 1 BAG IV SCH ×4 (02:51→14:12)
[2017-05-12] MEDS: Sodium Chloride 0.9% 1,000 ML IV SCH ×2 (02:53→18:28)
[2017-05-12] MEDS: Heparin Sodium 5,000 Units/ML Vial SUBCUT SCH ×3 (05:42→22:11)
--- NOTE | 2017-05-12 05:51 | HP ---
CHIEF COMPLAINT: "I had a fall at home." HISTORY OF PRESENT ILLNESS: Mrs. Meg Mcneill is a 71-year-old female with medical history significant for hypertension, hyperlipidemia, history of dementia, anxiety, history of methicillin-susceptible Staphylococcus aureus bacteremia in the past, history of TIAs in the past, and recurrent episodes of unresponsiveness in the past. Workup did not show any acute pathology at that time, presents today to the ER with complaints of having a fall at home. While in the emergency room, the patient had extensive workup done including a CT scan of the brain, which did not show any acute lesion. She was noted to have possible urinary tract infection, needing admission to the hospital. At this time, the patient has dementia and is unable to provide a detailed history. She does not remember how she fell. She does not remember when she fell. She does not remember any symptoms. She does not remember if she lost her consciousness. The patient denied any fevers or chills in the last few days. No complaints of nausea, vomiting, or diarrhea in the last few days. No complaints of chest pain. No complaints of shortness of breath. No further detailed history could be obtained at this juncture secondary to history of dementia and the patient not aware of her history. REVIEW OF SYSTEMS: A complete review of system is difficult to obtain from this patient, who has dementia and is unable to provide any detailed history. PAST MEDICAL HISTORY: Significant for: 1. Hypertension. 2. Hyperlipidemia. 3. Dementia. 4. History of methicillin-susceptible Staphylococcus aureus bacteremia in the past. 5. History of recurrent syncopal episodes, requiring Neurology consultation in the past with no acute pathology identified at that time. 6. Depression and anxiety. 7. History of delusional disorder. 8. Gastroesophageal reflux disease. 9. Obesity. 10.Paranoia. PAST SURGICAL HISTORY: Significant for colonoscopy, right knee arthroplasty, bilateral rotator cuff repair. ALLERGIES: The patient noted to have allergies to Demerol. SOCIAL HISTORY: The patient denied any history of smoking tobacco. No history of alcohol intake. FAMILY HISTORY: Significant for hypertension in her mother, and depression in her sister. HOME MEDICATIONS: Include: 1. Risperidone 1.5 mg at bedtime. 2. Norvasc 5 mg at bedtime. 3. Simvastatin 40 mg at bedtime. 4. Protonix 20 mg daily. 5. Namenda 10 mg twice a day. 6. Cozaar 100 mg daily. 7. Hydrochlorothiazide 25 mg daily. 8. Lexapro 50 mg at bedtime. 9. Donepezil 10 mg at bedtime. 10.Plavix 75 mg daily. 11.Aspirin 81 mg daily. PHYSICAL EXAMINATION: Vital Signs: Temperature of 97.7, pulse of 58, respiratory rate of 18, blood pressure of 157/58, saturating at 98% on room air. General Appearance: The patient remains demented. Not oriented to time, place, and person, but awake and alert and follows commands spontaneously. Cardiovascular System: S1 and S2 heard with normal intensity. A grade 3 x 6 systolic murmur appreciated. No gallops. Respiratory System: Clear to auscultation bilaterally. No wheeze. No crepitations. Abdomen: Soft. Bowel sounds positive. Nontender. No rigidity. Neurology: No gross focal neurological deficit appreciated. Equal strength in all the extremities. HEENT/Neck: The patient is noted to have raccoon eyes with ecchymosis noted mostly on the right eye and swelling noted, and a small laceration noted on the right side of the frontal area. No active bleeding noted. Pupils are equally react to light and ocular movements are intact. Skin: No acute rash noted. Psychiatry: Normal mood. No signs of depression, anxiety, or psychosis noted at this time, but the patient has underlying dementia. LABORATORY DATA: Labs reviewed. WBC 14.2, hemoglobin 12.5, hematocrit 37.4, platelet count 183. PT 9.9, INR 1. Sodium 137, potassium 3.7, chloride 98, bicarb 30, BUN 20, creatinine 1, glucose 116, AST 22, ALT 16. Urinalysis: Moderate leukocytes, many bacteria, few mucus, and moderate epithelial cells. ASSESSMENT: 1. Fall. 2. Hypertension. 3. Urinary tract infection. 4. Hyperlipidemia. 5. Dementia. 6. History of depression and anxiety. 7. History of psychosis. PLAN: 1. Fall: The patient presents with a fall and a CT scan of the brain did not show any acute pathology. No evidence of acute infarct or hemorrhage or mass effect noted at this time. Mild right frontal scalp contusion noted. Exact etiology for the fall not clear. The patient has been having this recurrent episodes of syncope in the last 2 years, and the patient was also evaluated by Neurology in the past and no exact etiology noted. Unsure if the patient had these seizure-like episode, but no clear evidence identified at this time. The patient will be admitted to the hospital. We will have Physical Therapy and Occupational Therapy evaluate and treat the patient. Once the patient is stable, she might benefit from re-evaluated by Neurology as an outpatient for possible EEG at that time. 2. Urinary tract infection. The patient is noted to have mild UTI. We will start her on antibiotics and obtain blood cultures, urine cultures, and titrate the antibiotics once we have the culture reports available. 3. Hypertension, uncontrolled. The patient noted to have elevated blood pressure. This could be resulting from the stress. We will restart her antihypertensive medications and dose-adjust medications as needed. Use clonidine 0.1 mg as needed for systolic blood pressure greater than 160. 4. DVT prophylaxis. The patient is noted to have ecchymosis and laceration to the frontal side. We will start on heparin in a.m. Use SCDs for DVT prophylaxis, try to ambulate the patient around. 5. History of anxiety and depression. The patient is noted to be on medications. We will continue the same. 6. Code Status: The patient wants to be full code at this time. Discussed with the patient regarding the plan of care. Discussed with Allyn from ER regarding the plan of care, reviewed the labs and medications, reviewed the old charts. [facility] /[id number]
[2017-05-12 06:50] LABS: CHLORIDE,CL 101 mmol/L (101-111); SODIUM,NA 138 mmol/L (135-145)
[2017-05-12] MEDS: Clopidogrel 75 MG Tab PO SCH (09:41)
--- NOTE | 2017-05-12 09:41 | CT ---
CLINICAL HISTORY: 71-year-old female hospitalized after a fall (CT scan head 11 May 2017 revealed " no evidence for acute intracranial injury"). SCAN TECHNIQUE: Volume acquisition of data from an unenhanced CT scan of the cervical spine obtained with the patient lying supine on the Siemens multislice CT scanner [place], [place]. All data archived in the PACS system for storage, reformatting and study. INTERPRETATION: Abnormal, but no fractures. 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 Extensive arthritic sclerosis facet joints. No sign of prevertebral soft tissue swelling, cervical fracture, "jumped locked" facets, or spondylo listhesis.
[2017-05-12] MEDS: Memantine 10 MG Tab PO SCH ×2 (09:42→20:28)
[2017-05-12] MEDS: Aspirin 81 MG Tab.EC PO SCH (09:42)
[2017-05-12] MEDS: Losartan 50 MG Tab PO SCH (09:43)
[2017-05-12] MEDS: Hydrochlorothiazide 25 MG Tab PO SCH (09:43)
[2017-05-12] MEDS: Donepezil 10 MG Tab PO SCH (20:27)
[2017-05-12] MEDS: risperiDONE 1 MG Tab PO SCH (20:30)
[2017-05-12] MEDS: Escitalopram 10 MG Tab PO SCH (20:33)
[2017-05-12] MEDS: Simvastatin 40 MG Tab PO SCH (20:36)
[2017-05-12] MEDS ORDERED: amLODIPine 5 MG Tab PO SCH (21:00)
[2017-05-13] MEDS: Ciprofloxacin in D5W 200 MG in Premix Bag 1 BAG IV SCH ×4 (03:13→13:48)
[2017-05-13] MEDS: Heparin Sodium 5,000 Units/ML Vial SUBCUT SCH ×3 (05:31→22:00)
[2017-05-13] MEDS: Hydrochlorothiazide 25 MG Tab PO SCH ×2 (05:32→09:34)
[2017-05-13] MEDS: Pantoprazole 40 MG Tab.CR PO SCH (05:32)
[2017-05-13] MEDS: Losartan 50 MG Tab PO SCH ×2 (05:32→09:33)
[2017-05-13 06:33] LABS: CHLORIDE,CL 102 mmol/L (101-111); SODIUM,NA 138 mmol/L (135-145)
[2017-05-13] MEDS: Sodium Chloride 0.9% 1,000 ML IV SCH ×2 (08:54→23:31)
[2017-05-13] MEDS: Memantine 10 MG Tab PO SCH ×2 (09:31→20:30)
[2017-05-13] MEDS: Clopidogrel 75 MG Tab PO SCH (09:31)
[2017-05-13] MEDS: Aspirin 81 MG Tab.EC PO SCH (09:31)
[2017-05-13] MEDS ORDERED: Sodium Chloride 0.9% 1,000 ML IV SCH (10:30)
[2017-05-13] MEDS: hydrALAZINE 25 MG Tab PO SCH ×3 (10:52→21:57)
--- NOTE | 2017-05-13 13:46 | PN ---
DATE: 05/13/2017 SUBJECTIVE: Ms. Charito Weaver is a 71-year-old female with medical history significant for hypertension, hyperlipidemia, history of dementia, anxiety, and methicillin-susceptible Staph aureus bacteremia in the past presented with complaints of having a fall at her home and possible urinary tract infection. For the last 24 hours, the patient was evaluated by physical therapy and occupational therapy. She is able to ambulate well with help of physical therapy and walker. She denies any headaches, no changes in the vision. No neck pain. No chest pain. No shortness of breath. No abdominal pain. No nausea. No vomiting. No diarrhea. The patient was noted to have uncontrolled hypertension. REVIEW OF SYSTEMS: Cardiovascular, respiratory, gastrointestinal, neurology, and constitutional were all evaluated. PHYSICAL EXAMINATION: Vital signs: Temperature of 98.1, pulse of 61, blood pressure 111/57, respiratory rate of 20, saturating at 98% on room air. General Appearance: The patient is awake and alert and follows commands spontaneously. Cardiovascular System: S1, S2 heard with normal intensity. No gallops. A 3/6 systolic murmur appreciated on the aortic border. Respiratory: Clear to auscultation bilaterally. No wheeze. No crepitations. Abdomen: Soft. Bowel sounds positive. Nontender. No rigidity. Extremities: No edema in bilateral lower extremities. Neurology: No gross focal neurological deficits. Head and Neck: The patient is noted to have mild laceration on the right frontal side and some ecchymosis around the eyes, which seems to be improved from the time of admission. LABORATORY DATA: Reviewed. Sodium 138, potassium 3.7, chloride 102, bicarb 27, BUN 14, creatinine 0.9, creatine kinase 296, troponin less than 0.02. Microbiology, blood culture shows no growth. Awaiting for urine culture. MEDICATIONS: 1. Reviewed. Continue with: Tylenol 650 every 4 hours as needed for pain. 2. Aspirin 81 mg daily. 3. Ciprofloxacin 200 mg IV every 12 hourly. 4. Plavix 75 mg daily. 5. Docusate sodium 100 mg twice a day as needed. 6. Lexapro 15 mg at bedtime. 7. Heparin 5000 subcutaneous every 8 hourly. 8. Hydrochlorothiazide 25 mg daily. 9. Cozaar 100 mg daily. 10.Milk of magnesia 30 mL every 12 hours as needed for constipation. 11.Protonix 40 mg daily. 12.Simvastatin 40 mg at bedtime. 13.Hydralazine 50 mg every 8 hourly. 14.Risperidone 1.5 mg at bedtime. ASSESSMENT: 1. Status post fall. 2. Urinary tract infection. 3. Hypertension, uncontrolled. 4. Hyperlipidemia. 5. Dementia. PLAN: 1. Status post fall. The patient presents with a fall exact etiology not clear. The patient has been having this fall. She is noted to have 3/6 systolic murmur appreciated on the aortic border. Unsure if the patient has any aortic regurgitation and aortic stenosis. Given her wide pulse pressure, one has to wonder if she has an aortic regurgitation. She is noted to have a systolic of 196 and diastolic of 80. It is like 116 pulse pressure there, so we will order for a 2D echocardiogram to make sure the patient does not have any symptomatic aortic stenosis or aortic regurgitation at this time resulting in this frequent falls. We will closely monitor the patient. The patient did not have any fall after coming to the hospital. We will continue with physical therapy and occupational therapy for better strengthening and for ADLs. 2. Hypertension, uncontrolled. The patient noted to have elevated blood pressure. We will start her on hydralazine. She is noted to have low diastolic pressures. We will hold Norvasc, started on low-dose hydralazine at 25 every 8 hourly. Continue with Cozaar for now. We will closely follow. 3. Urinary tract infection. The patient was noted to have possible UTI at the time of admission and is currently on antibiotic, continue the same. 4. Dementia. The patient remains stable. She is more awake and alert. Continue with current treatment plan. 5. We will continue with physical therapy and occupational therapy. 6. 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 We recommended that patient go to alf as the patient lives alone and has history of dementia and has frequent falls, but the patient and family members are opting for going home. We will see if the patient will need any home healthcare at the time of discharge. 7. DVT prophylaxis. Continue with heparin 5000 subcu every 8 hourly for DVT prophylaxis. 8. The patient had a CT scan of the brain and also CT scan of the cervical spine on this admission, which are benign. No acute fractures or hemorrhage or infarcts noted at this time. [facility] /[id number]
[2017-05-13] MEDS: Escitalopram 10 MG Tab PO SCH (20:29)
[2017-05-13] MEDS: Donepezil 10 MG Tab PO SCH (20:29)
[2017-05-13] MEDS: risperiDONE 1 MG Tab PO SCH (20:31)
[2017-05-13] MEDS: Simvastatin 40 MG Tab PO SCH (20:32)
[2017-05-14] MEDS: Ciprofloxacin in D5W 200 MG in Premix Bag 1 BAG IV SCH ×4 (02:00→13:45)
[2017-05-14] MEDS: hydrALAZINE 25 MG Tab PO SCH (06:11)
[2017-05-14] MEDS: Heparin Sodium 5,000 Units/ML Vial SUBCUT SCH ×3 (06:13→22:01)
[2017-05-14] MEDS: Pantoprazole 40 MG Tab.CR PO SCH (06:13)
[2017-05-14] MEDS: Hydrochlorothiazide 25 MG Tab PO SCH (09:48)
[2017-05-14] MEDS: Aspirin 81 MG Tab.EC PO SCH (09:48)
[2017-05-14] MEDS: Memantine 10 MG Tab PO SCH ×2 (09:48→21:07)
[2017-05-14] MEDS: Losartan 50 MG Tab PO SCH (09:48)
[2017-05-14] MEDS: Clopidogrel 75 MG Tab PO SCH (09:48)
[2017-05-14] MEDS: Sodium Chloride 0.9% 10 ML Syringe FLUSH PRN (13:46)
[2017-05-14] MEDS: Escitalopram 10 MG Tab PO SCH (21:05)
[2017-05-14] MEDS: Donepezil 10 MG Tab PO SCH (21:06)
[2017-05-14] MEDS: risperiDONE 1 MG Tab PO SCH (21:06)
[2017-05-14] MEDS: Simvastatin 40 MG Tab PO SCH (21:07)
[2017-05-15] MEDS: Ciprofloxacin in D5W 200 MG in Premix Bag 1 BAG IV SCH ×4 (02:04→13:51)
[2017-05-15] MEDS: Heparin Sodium 5,000 Units/ML Vial SUBCUT SCH ×3 (05:35→21:00)
[2017-05-15] MEDS: Pantoprazole 40 MG Tab.CR PO SCH (05:36)
[2017-05-15] MEDS: Memantine 10 MG Tab PO SCH ×2 (09:25→21:00)
[2017-05-15] MEDS: Clopidogrel 75 MG Tab PO SCH (09:27)
[2017-05-15] MEDS: Aspirin 81 MG Tab.EC PO SCH (09:36)
[2017-05-15] MEDS: amLODIPine 5 MG Tab PO SCH (11:09)
[2017-05-15] MEDS: Losartan 50 MG Tab PO SCH (11:09)
[2017-05-15] MEDS: Hydrochlorothiazide 25 MG Tab PO SCH (11:10)
--- NOTE | 2017-05-15 12:56 | PN ---
DATE: 05/15/2017 SUBJECTIVE: Ms. Charito Weaver is a 71-year-old female with a medical history significant for hypertension, hyperlipidemia, history of dementia, anxiety, methicillin-susceptible Staph aureus, bacteremia in the past presented with complaints of having a fall at her home and noted to have urinary tract infection. For the last 24 hours, the patient was continued on IV ciprofloxacin. Her blood pressure seems to be labile where she was noted to have lower blood pressure at that time. She denies any chest pain. No shortness of breath. No abdominal pain. No nausea. No vomiting. No diarrhea. No other acute events noted overnight. She remains confused at times. REVIEW OF SYSTEMS: Cardiovascular, respiratory, gastrointestinal, neurology, constitutional were all evaluated. PHYSICAL EXAMINATION: Vital Signs: Temperature of 97.1, pulse of 55, blood pressure 115/83, respiratory rate of 20, saturating at 99% on room air. General Appearance: The patient is well oriented to time, place, and person. Follows commands spontaneously. Cardiovascular System: S1, S2 heard with normal intensity. No gallops. Respiratory: Clear to auscultation bilaterally. No wheeze. No crepitations. Abdomen: Soft. Bowel sounds positive. Nontender. No rigidity. Extremities: No edema in bilateral lower extremities. Neurology: No gross focal neurological deficit. MEDICATIONS: Reviewed. Continue with: 1. Tylenol 650 every 4 hours as needed for pain. 2. Norvasc 10 mg daily. 3. Aspirin 81 mg daily. 4. Ciprofloxacin 200 mg IV every 12 hourly. 5. Plavix 75 mg daily. 6. Aricept 10 mg at bedtime. 7. Lexapro 15 mg at bedtime. 8. Heparin 5000 subcu every 8 hourly. 9. Hydrochlorothiazide 25 mg daily. 10.Cozaar 100 mg daily. 11.Milk of magnesia 30 mL every 12 hourly. 12.Namenda 10 mg twice a day. 13.Risperidone 1.5 mg at bedtime. 14.Zocor 40 mg at bedtime. LABORATORY DATA: No new labs ordered for today. ASSESSMENT: 1. Status post fall. 2. Urinary tract infection. 3. Hypertension, uncontrolled. 4. Hyperlipidemia. 5. Dementia. PLAN: 1. Urinary tract infection. The patient's urine culture showing E. coli sensitive to ciprofloxacin. Continue with IV ciprofloxacin. We will switch her to oral ciprofloxacin at the time of discharge. 2. Status post fall. The patient had a fall and resulting in closed head injury. She was noted to have a laceration on the frontal aspect and also ecchymosis around the eyes, which seems to be much improved. CT scan of the head and of the cervical spine were within normal limits at the time of admission. She is able to ambulate well without any difficulties. She does not have any focal neurological deficits at this time. 3. Hypertension, labile. The patient continues to have labile hypertension where she was noted to have elevated blood pressure at the time of admission. Currently, she is on the lower side. We discontinued the hydralazine and added back the Norvasc as discussed with family members. Continue with Norvasc, hydrochlorothiazide, and Cozaar. We will closely observe the patient, titrate the antihypertensive medication as needed to optimize the blood pressure. 4. Dementia. The patient has chronic history of dementia. Continue with Namenda. She remains stable though she has some mild confusional episode at times. 5. Possible discharge in a.m. if she remains hemodynamically stable. We thought of discharging her today but secondary to her labile hypertension, we will hold the discharge for today and possible discharge in a.m. [facility] /[id number]
[2017-05-15] MEDS: Sodium Chloride 0.9% 10 ML Syringe FLUSH PRN (13:51)
[2017-05-15] MEDS: Simvastatin 40 MG Tab PO SCH (20:57)
[2017-05-15] MEDS: risperiDONE 1 MG Tab PO SCH (20:58)
[2017-05-15] MEDS: Donepezil 10 MG Tab PO SCH (20:59)
[2017-05-15] MEDS: Escitalopram 10 MG Tab PO SCH (21:00)
[2017-05-16] MEDS: Ciprofloxacin in D5W 200 MG in Premix Bag 1 BAG IV SCH ×2 (03:18)
[2017-05-16] MEDS: Pantoprazole 40 MG Tab.CR PO SCH (05:38)
[2017-05-16] MEDS: Heparin Sodium 5,000 Units/ML Vial SUBCUT SCH (05:38)
--- NOTE | 2017-05-16 08:25 | PN ---
DATE: 05/14/2017 Mrs. Charito Weaver is a 71-year-old female with medical history significant for hypertension, hyperlipidemia, dementia, anxiety, history of MSSA bacteremia in the past presented with a fall at home and noted to have possible urinary tract infection. For the last 24 hours, the patient is more awake and alert and she is able to ambulate well with the help of a walker. She denies any chest pain. No shortness of breath. No abdominal pain. No nausea. No vomiting. No diarrhea. The patient is accompanied by her family members and they are concerned about her antihypertensive medications. They were more comfortable with her home regimen with Norvasc, they are not comfortable with hydralazine. Explained in detail about changes in her medications. REVIEW OF SYSTEMS: Cardiovascular, respiratory, gastrointestinal, neurology, constitutional were all evaluated. PHYSICAL EXAMINATION: Vital signs: Temperature of 98.2, pulse of 71, blood pressure 130/53, saturating at 99% on room air, respiratory rate of 20. General Appearance: Patient is awake and alert. Follows commands spontaneously. Cardiovascular System: S1, S2 heard with normal intensity. No gallops. Respiratory System: Clear to auscultation bilaterally. No wheeze. No crepitations. Abdomen: Soft. Bowel sounds positive. Nontender. No rigidity. Extremities: No edema bilateral lower extremities. Neurology: No gross focal neurological deficit. Head and Neck: The patient is noted to have ecchymosis around the eyes bilaterally and small laceration on the frontal side which seems to be improved from the time of admission. MEDICATIONS: Reviewed. Continue with: 1. Tylenol 650 every 4 hours as needed for pain. 2. Aspirin 81 mg daily. 3. Plavix 75 mg daily. 4. Aricept 10 mg at bedtime. 5. Lexapro 15 mg at bedtime. 6. Heparin 5000 units subcu q.8 hourly. 7. Hydralazine 50 mg every 8 hourly. 8. Hydrochlorothiazide 25 mg daily. 9. Cozaar 100 mg daily. 10.Namenda 10 mg twice a day. 11.Zofran every 4 hours as needed. 12.Protonix 40 mg daily. 13.Risperdal 1.5 mg at bedtime. 14.Simvastatin 40 mg at bedtime. LABORATORY DATA: Reviewed. Sodium 138, potassium 3.7, chloride 102, bicarb 27, BUN 14, creatinine 0.9, glucose 88. Creatine kinase 112, normal. ASSESSMENT: 1. Status post fall. 2. Closed head injury. 3. Urinary tract infection. 4. Hypertension. 5. Hyperlipidemia. PLAN: 1. Urinary tract infection. The patient is started on IV antibiotic with ciprofloxacin, continue the same. We will change it to oral antibiotic when she is discharged. Urine culture remains negative thus far as greater than 10,000 colony-forming units. We will follow the culture report and sensitivity and identification. 2. Status post fall. The patient had a fall at her home and resulted in closed head injury where she is noted to have a laceration on the frontal side and also ecchymosis. The patient had a CT scan of the head and also the CT scan of the cervical spine which did not show any acute fracture or any acute infarct. 3. Hypertension, uncontrolled. The patient was noted to have elevated blood pressure. We had to stop the Norvasc as she was noted to have lower diastolic pressures, but family members are more comfortable with the Norvasc as they claim that the ambulatory blood pressure has been normal at home, so we will start her back on the Norvasc. We will hold the hydralazine for the next 24 hours, and see how she does on the Norvasc. 4. Hyperlipidemia. Continue with the statin for now. 5. Dementia. The patient is noted to be on medications. Her dementia remains stable. No acute delirious episode noted. 6. The patient is encouraged to use a walker all the time. 7. Possible discharge in a.m. if she remains hemodynamically stable. 8. DVT prophylaxis. Continue with heparin 5000 units subcutaneous q.8 hourly for DVT prophylaxis. [facility] /[id number]
--- NOTE | 2017-05-16 08:52 | EKG ---
05/11/2017 - BRIANNA ELIZABETH - Twelve-lead EKG shows normal sinus rhythm. No significant ST elevation or ST depression noted on this 12-lead EKG. Nonspecific ST-T wave changes noted on lead V4, V5, and V6. [facility] /[id number]
[2017-05-16] MEDS: Clopidogrel 75 MG Tab PO SCH (10:00)
[2017-05-16] MEDS: amLODIPine 5 MG Tab PO SCH (10:00)
[2017-05-16] MEDS: Losartan 50 MG Tab PO SCH (10:00)
[2017-05-16] MEDS: Hydrochlorothiazide 25 MG Tab PO SCH (10:01)
[2017-05-16] MEDS: Memantine 10 MG Tab PO SCH (10:01)
--- NOTE | 2017-05-16 10:38 | PCM.DCSUM1 ---
Discharge Summary - Hospital Course Free Text/Narrative:: 71 year-old female was the best medical history of hypertension, hyperlipidemia , dementia, anxiety, MRSA, remote TIA, recurrent episodes of unresponsiveness presented to the emergency room for having fall at home. Patient does not remember what happened exactly. On admission her CT scan of the head did not show any acute findings. She does not have any symptoms on review of system on admission however it was difficult to obtain from the patient due to the dementia. Her exam was significant for ecchymosis around the eyes. Otherwise neuro exam did not show focal symptoms. Her blood pressure was somewhat elevated on admission so hydralazine was in was introduced. Later her blood pressure was on the the low range. So hydralazine was discontinued yesterday. Her blood pressure has been controlled since. Her laboratory workup are unremarkable except for UTI. She is being treated with Cipro. Today review of system has been negative and patient wants to go home. She'll be discharged home today on oral Cipro. She will have a total of 7 days of Cipro since admission. Family declined any type of service at home such as home health, assisted living, nursing placement - Discharge Data Discharge Date: 05/16/17 Discharge Disposition: Home, Self-Care 01 Condition: Good - Discharge Diagnosis/Problem(s) (1) Contusion of head SNOMED Code(s): 141935479 ICD Code: S00.93XA - CONTUSION OF UNSPECIFIED PART OF HEAD, INITIAL ENCOUNTER Status: Acute Priority: Medium Current Visit: Yes Qualifiers: Encounter type: initial encounter Contusion of head detail: other part of head Qualified Code(s): S00.83XA - Contusion of other part of head, initial encounter (2) Dementia SNOMED Code(s): 05986074 ICD Code: F03.90 - UNSPECIFIED DEMENTIA WITHOUT BEHAVIORAL DISTURBANCE Status: Chronic Priority: Medium Current Visit: Yes Qualifiers: Dementia type: Alzheimer's disease Alzheimer's disease onset: unspecified onset Dementia behavioral disturbance: without behavioral disturbance Qualified Code(s): G30.9 - Alzheimer's disease, unspecified; F02.80 - Dementia in other diseases classified elsewhere without behavioral disturbance (3) Fall in home SNOMED Code(s): 02820532 ICD Code: W19.XXXA - UNSPECIFIED FALL, INITIAL ENCOUNTER; Y92.099 - UNSP PLACE IN OTH NON-INSTITUTIONAL RESIDENCE PLACE Status: Acute Priority: High Current Visit: Yes Qualifiers: Encounter type: initial encounter Qualified Code(s): W19.XXXA - Unspecified fall, initial encounter; Y92.099 - Unspecified place in other non- institutional residence as the place of occurrence of the external cause (4) UTI (urinary tract infection) SNOMED Code(s): 54214611 ICD Code: N39.0 - URINARY TRACT INFECTION, SITE NOT SPECIFIED Status: Acute Priority: Medium Current Visit: Yes Qualifiers: Urinary tract infection type: acute cystitis Hematuria presence: with hematuria Qualified Code(s): N30.01 - Acute cystitis with hematuria - Patient Summary/Data Consults: Consultations 05/12/17 02:17 OT Evaluation and Treatment [CONS] Routine PT Evaluation and Treatment [CONS] Routine - Patient Instructions Diet: Heart Healthy Diet Showering/Bathing: March Shower Notify Provider of: Fever - Discharge Plan Prescriptions/Med Rec: Ciprofloxacin HCl [Cipro] 500 mg PO BID #5 tablet Home Medications: Home Meds Aspirin [[place] Aspirin] 81 mg PO DAILY 04/08/15 [History] Donepezil HCl 10 mg PO BEDTIME 04/08/15 [History] Escitalopram [Lexapro] 15 mg PO BEDTIME 04/08/15 [History] Losartan Potassium [Cozaar] 100 mg PO DAILY 04/08/15 [History] Memantine [Namenda] 10 mg PO BID 04/08/15 [History] risperiDONE [RisperiDAL] 1.5 mg PO BEDTIME 04/08/15 [History] Hydrochlorothiazide 25 mg PO DAILY #30 tablet 04/10/15 [Rx] Clopidogrel [Plavix] 75 mg PO DAILY #30 tablet 07/09/16 [Rx] Pantoprazole Sodium [Protonix] 20 mg PO DAILY 12/14/16 [History] Simvastatin [Zocor] 40 mg PO BEDTIME 12/14/16 [History] amLODIPine [Norvasc] 5 mg PO BEDTIME 05/12/17 [History] Ciprofloxacin HCl [Cipro] 500 mg PO BID #5 tablet 05/16/17 [Rx] Patient Handouts: Fall Prevention in the Home, [id number], Urinary Tract Infection, Adult, [id number], Contusion, [id number] Referrals: PCP,Unobtain [Ordering Only Provider] - - Discharge Summary/Plan Comment DC Time >30 min.: Yes (35 minutes were spent) - General Info Date of Service: 05/16/17 Admission Dx/Problem (Free Text: Fall at home UTI - Review of Systems General: Reports: No Symptoms. Denies: Fever, Weakness, Fatigue, Malaise, Chills, Night Sweats, Appetite HEENT: Reports: no symptoms Pulmonary: Reports: no symptoms Cardiovascular: Reports: No Symptoms Gastrointestinal: Reports: No symptoms Genitourinary: Reports: no symptoms Musculoskeletal: Reports: no symptoms Skin: Reports: no symptoms Neurological: Reports: No Symptoms Psychiatric: Reports: no symptoms - Patient Data Vitals - Most Recent: Last Vital Signs Temp 36.2 C 05/16/17 07:00 Pulse 54 L 05/16/17 07:00 Resp 20 05/16/17 07:00 BP 121/49 L 05/16/17 10:00 Pulse Ox 100 05/16/17 07:00 Weight - Most Recent: 86.2 kg I&O - Last 24 hours: Intake & Output 05/15/17 05/16/17 05/16/17 22:59 06:59 14:59 Intake Total 1975 250 Balance 1975 250 ROSMERY Results - Last 24 hrs: Microbiology 05/12/17 02:45 Aerobic Blood Culture - Preliminary Blood - Venous - Lab Draw NO GROWTH AFTER 4 DAYS Anaerobic Blood Culture - Preliminary NO GROWTH AFTER 4 DAYS 05/12/17 02:40 Aerobic Blood Culture - Preliminary Blood - Venous NO GROWTH AFTER 4 DAYS Anaerobic Blood Culture - Preliminary NO GROWTH AFTER 4 DAYS Med Orders - Current: Current Medications Acetaminophen (Tylenol) 650 mg PO Q4H PRN PRN Reason: Pain (Mild 1-3)/fever Last Admin: 05/12/17 14:09 Dose: 650 mg Amlodipine Besylate (Norvasc) 10 mg PO DAILY [facility] Last Admin: 05/16/17 10:00 Dose: 10 mg Aspirin (Halfprin) 81 mg PO DAILY [facility] Last Admin: 05/15/17 09:36 Dose: 81 mg Clopidogrel Bisulfate (Plavix) 75 mg PO DAILY [facility] Last Admin: 05/16/17 10:00 Dose: 75 mg Docusate Sodium (Colace) 100 mg PO BID PRN PRN Reason: Constipation Donepezil HCl (Aricept) 10 mg PO BEDTIME [facility] Last Admin: 05/15/17 20:59 Dose: 10 mg Escitalopram Oxalate (Lexapro) 15 mg PO BEDTIME [facility] Last Admin: 05/15/17 21:00 Dose: 15 mg Heparin Sodium (Porcine) (Heparin Sodium) 5,000 units SUBCUT Q8HR [facility] Last Admin: 05/16/17 05:38 Dose: 5,000 units Hydrochlorothiazide (Hydrochlorothiazide) 25 mg PO DAILY [facility] Last Admin: 05/16/17 10:01 Dose: 25 mg Ciprofloxacin/Dextrose 200 mg/ (Premix) 100 mls @ 100 mls/hr IV Q12H [facility] Last Admin: 05/16/17 03:18 Dose: 100 mls/hr Losartan Potassium (Cozaar) 100 mg PO DAILY [facility] Last Admin: 05/16/17 10:00 Dose: 100 mg Magnesium Hydroxide (Milk Of Magnesia) 30 ml PO Q12H PRN PRN Reason: Constipation Memantine (Namenda) 10 mg PO BID [facility] Last Admin: 05/16/17 10:01 Dose: 10 mg Ondansetron HCl (Zofran Odt) 4 mg PO Q4H PRN PRN Reason: nausea, able to take PO Pantoprazole Sodium (Protonix) 40 mg PO ACBRK [facility] Last Admin: 05/16/17 05:38 Dose: 40 mg Risperidone (Risperidal) 1.5 mg PO BEDTIME [facility] Last Admin: 05/15/17 20:58 Dose: 1.5 mg Simvastatin (Zocor) 40 mg PO BEDTIME [facility] Last Admin: 05/15/17 20:57 Dose: 40 mg Sodium Chloride (Saline Flush) 10 ml FLUSH ASDIRECTED PRN PRN Reason: Keep Vein Open Last Admin: 05/15/17 13:51 Dose: 10 ml Discontinued Medications Amlodipine Besylate (Norvasc) 5 mg PO BEDTIME [facility] Last Admin: 05/12/17 20:37 Dose: Not Given Hydralazine HCl (Apresoline) 50 mg PO Q8HR [facility] Last Admin: 05/14/17 06:11 Dose: 50 mg Sodium Chloride (Normal Saline) 1,000 mls @ 75 mls/hr IV ASDIRECTED [facility] Last Admin: 05/13/17 23:31 Dose: 75 mls/hr Sodium Chloride (Normal Saline) 1,000 mls @ 75 mls/hr IV ASDIRECTED OFELIA - Exam General: Reports: alert, oriented (Oriented to person not to time and place), cooperative (Pleasant), no acute distress. Denies: mild distress, moderate distress, severe distress, sedated, lethargic, obtunded, other HEENT: Reports: Pupils equal, Pupils reactive, EOMI, Mucous membr. moist/pink, Other (Ecchymosis on the right forehead and under his eye bilaterally) Neck: Reports: supple, trachea midline, no JVD Lungs: Reports: Clear to auscultation, Normal respiratory effort. Denies: Crackles, Rales, Rhonchi, Rub, Stridor, Wheezing Cardiovascular: Reports: Regular Rate, Regular Rhythm Abdomen: Reports: bowel sounds present, soft, no tenderness, no distension (Female) Exam: Deferred Rectal (Female) Exam: Deferred Back Exam: Reports: Normal Inspection, Full Range of Motion Extremities: Reports: no edema, no tenderness/swelling, no clubbing, no cyanosis , no calf tenderness Skin: Reports: warm, dry, intact Neurological: Reports: no new focal deficit, normal speech, normal tone, strength equal bilateral, sensation intact, cranial nerves intact Psy/Mental Status: Reports: alert, normal affect, normal mood. Denies: suicidal ideation, homicidal ideation *Q Meaningful Use (DIS) - VTE *Q VTE Criteria *Q: - Stroke *Q Stroke Criteria *Q: - AMI *Q AMI Criteria *Q:
[2017-05-16 12:10] VITALS: BP 121/47
[2017-05-16] MEDS: Aspirin 81 MG Tab.EC PO SCH (13:05)
== END 2017-05-16 13:30 | disposition home or self-care (01) | DRG 605 ==
LOC: DL.ED 21:42 → DL.MS 05-12 00:15 → UNDOADMIN 05-12 00:15 → DL.MS 05-12 02:20 → UNDODISIN 05-16 13:30
PROVIDERS: ADMIT Internal Medicine; ATTEND Internal Medicine
DX: S00.03XA Contusion of scalp, initial encounter (principal); N30.01 Acute cystitis with hematuria; S00.83XA Contusion of other part of head, initial encounter; W19.XXXA Unspecified fall, initial encounter; Y92.099 Unspecified place in other non-institutional residence as the place of occurrence of the external cause; G30.9 Alzheimer's disease, unspecified; F02.80 Dementia in other diseases classified elsewhere, unspecified severity, without behavioral disturbance, psychotic disturbance, mood disturbance, and anxiety; I10 Essential (primary) hypertension; E78.00 Pure hypercholesterolemia, unspecified; K21.9 Gastro-esophageal reflux disease without esophagitis; M19.90 Unspecified osteoarthritis, unspecified site; Z86.73 Personal history of transient ischemic attack (TIA), and cerebral infarction without residual deficits; E78.5 Hyperlipidemia, unspecified; F32.9 Major depressive disorder, single episode, unspecified; Z96.659 Presence of unspecified artificial knee joint; F41.9 Anxiety disorder, unspecified; Z86.14 Personal history of Methicillin resistant Staphylococcus aureus infection; Z79.02 Long term (current) use of antithrombotics/antiplatelets; Z79.82 Long term (current) use of aspirin; Z79.899 Other long term (current) drug therapy; Z88.6 Allergy status to analgesic agent
CPT/HCPCS: 36415; 70450; 72125; 80048; 80053; 81001; 82550; 83605; 84484; 85025; 85027; 85610; 87040; 87086; 87088; 87186; 93005; 93010; 97110-GO; 97162-GP; 97165-GO; 97535-GO; 99285; A9270-GY; J0744; J1644; J7030; J7050

== ENCOUNTER 2018-02-11 08:24 | Emergency (ER) | payer MEDICARE, BC, MEDICAID ==
[2018-02-11] MEDS ORDERED: Sodium Chloride 0.9% 10 ML Syringe FLUSH PRN (08:30)
[2018-02-11] MEDS ORDERED: Lactated Ringers 1,000 ML IV ONE (08:35)
[2018-02-11 08:41] VITALS: BP 120/42
[2018-02-11 09:11] LABS: CHLORIDE,CL 89 mmol/L (101-111); SODIUM,NA 128 mmol/L (135-145)
--- NOTE | 2018-02-11 12:00 | EDM.PDOC ---
ED HPI GENERAL MEDICAL PROBLEM - General Chief Complaint: Syncope Stated Complaint: by ambulance Time Seen by Provider: 02/11/18 09:42 Source of Information: Reports: EMS, Family History Limitations: Reports: Other (Severe dementia) - History of Present Illness INITIAL COMMENTS - FREE TEXT/NARRATIVE: Charito has severe dementia, and is currently living at home, with 24 hour caregivers. This morning, while taking a shower, she became very lightheaded and faint. She was lowered down to the floor of the shower, and ambulance called. As ambulance arrived, she was starting to feel better, but needed assistance to get up. She does have a history of hypertension, and does take anti-hypertensive medication. Family reports no other recent issues. - Related Data Allergies Allergy/AdvReac Type Severity Reaction Status Date / Time meperidine HCl [From Demerol] Allergy UNKNOWN Verified 02/11/18 08:58 Home Meds: Home Meds Aspirin [[place] Aspirin] 81 mg PO DAILY 04/08/15 [History] Donepezil HCl 10 mg PO BEDTIME 04/08/15 [History] Escitalopram [Lexapro] 15 mg PO BEDTIME 04/08/15 [History] Losartan Potassium [Cozaar] 100 mg PO DAILY 04/08/15 [History] Memantine [Namenda] 10 mg PO BID 04/08/15 [History] risperiDONE [RisperiDAL] 0.375 mg PO BEDTIME 04/08/15 [History] Hydrochlorothiazide 25 mg PO DAILY #30 tablet 04/10/15 [Rx] Clopidogrel [Plavix] 75 mg PO DAILY #30 tablet 07/09/16 [Rx] Pantoprazole Sodium [Protonix] 20 mg PO DAILY 12/14/16 [History] Simvastatin [Zocor] 40 mg PO BEDTIME 12/14/16 [History] amLODIPine [Norvasc] 5 mg PO BEDTIME 05/12/17 [History] Past Medical History - Past Health History Medical/Surgical History: Denies Medical/Surgical History HEENT History: Reports: Impaired Vision Cardiovascular History: Reports: Heart Murmur, High Cholesterol, Hypertension Other Cardiovascular History: history of bradycardia Gastrointestinal History: Reports: GERD Other Gastrointestinal History: colonic diverticular disease Genitourinary History: Reports: Urinary Incontinence, UTI, Recurrent NIP WRAPPER History: Reports: Other OB/BYN History: 1 NVD Musculoskeletal History: Reports: Arthritis Neurological History: Reports: TIA, Other (See Below) Other Neuro History: dementia Psychiatric History: Reports: Anxiety, Dementia, Depression, Psychosis - Past Surgical History HEENT Surgical History: Reports: Cataract Surgery Musculoskeletal Surgical History: Reports: Joint Replacement, Knee Replacement Social & Family History - Family History Family Medical History: Noncontributory - Tobacco Use Smoking Status *Q: Never Smoker Second Hand Smoke Exposure: No - Caffeine Use Caffeine Use: Reports: Coffee - Alcohol Use Days Per Week of Alcohol Use: 0 - Recreational Drug Use Recreational Drug Use: No - Living Situation & Occupation Living situation: Reports: , Alone Occupation: Retired ED ROS GENERAL - Review of Systems Review Of Systems: Unable To Obtain (unable to obtain because of severe dementia ) - Physical Exam Exam: See Below Text/Narrative:: General: Charito is a confused 72 year old woman in no acute distress Neuro: neuro exam is very difficult due to dementia, she is moving all four extremeties normally. She answers yes/no questions. Heart: regular rate and rhythm, 2/6 systolic murmur heard throughout Lungs: clear to ascultation throughout Abdomen: soft, nontender to palpation, normal bowel sounds throughout extremeties: no bruising or injury seen EKG shows normal sinus rhythm with a rate of 80, no ST-T changes noted, normal EKG EKG INTERPRETATION EKG Interpretation Comments: EKG shows normal sinus rhythm with a rate of 80, no ST-T changes noted, normal EKG Course - Vital Signs Last Recorded V/S: Last Vital Signs Temp 35.8 C 02/11/18 08:36 Pulse 71 02/11/18 08:36 Resp 12 02/11/18 08:36 BP 120/42 L 02/11/18 08:36 Pulse Ox 96 02/11/18 08:36 Orthostatic Blood Pressure [ 129/56 Standing] Orthostatic Blood Pressure [ 128/63 Sitting] Orthostatic Blood Pressure [ 139/110 Supine] - Orders/Labs/Meds Orders: Active Orders 24 hr Category Date Time Status Cardiac Monitoring [RC] . DIRECTED Care 02/11/18 08:31 Active EKG Documentation Completion [RC] STAT Care 02/11/18 08:31 Active Peripheral IV Care [RC] . DIRECTED Care 02/11/18 08:31 Active Sodium Chloride 0.9% [Saline Flush] Med 02/11/18 08:30 Active 10 ml FLUSH ASDIRECTED PRN Peripheral IV Insertion Adult [OM.PC] Stat Oth 02/11/18 08:30 Ordered Medication Orders Sodium Chloride (Saline Flush) 10 ml FLUSH ASDIRECTED PRN PRN Reason: Keep Vein Open Last Admin: 02/11/18 09:00 Dose: 10 ml Labs: Laboratory Tests 02/11/18 02/11/18 02/11/18 Range/Units 08:46 08:46 08:53 WBC 5.7 (5.0-10.0) 10^3/uL RBC 4.13 L (4.2-5.4) 10^6/uL Hgb 13.2 (12.0-16.0) g/dL Hct 37.6 (37.0-47.0) % MCV 91.0 (80-100) fL MCH 32.0 (27.0-34.0) pg MCHC 35.1 H (33.0-35.0) g/dL Plt Count 160 (150-450) 10^3/uL Neut % (Auto) 69.3 (42.2-75.2) % Lymph % (Auto) 15.9 L (20.5-50.1) % [place] % (Auto) 12.9 H (2-8) % Eos % (Auto) 1.7 (1.0-3.0) % Baso % (Auto) 0.2 (0.0-1.0) % Sodium 128 L D (135-145) mmol/L Potassium 3.4 L (3.6-5.0) mmol/L Chloride 89 L D (101-111) mmol/L Carbon Dioxide 27.0 (21.0-31.0) mmol/L Anion Gap 15.4 BUN 11 (7-18) mg/dL Creatinine 1.0 (0.6-1.3) mg/dL Est Cr Clr Drug Dosing TNP Estimated GFR (MDRD) 54 BUN/Creatinine Ratio 11.00 Glucose 153 H (74-105) mg/dL Calcium 9.3 (8.4-10.2) mg/dl Total Bilirubin 0.7 (0.2-1.0) mg/dL AST 27 (10-42) IU/L ALT 18 (10-60) IU/L Alkaline Phosphatase 61 (42-121) IU/L Troponin I < 0.02 (0.00-0.02) ng/ml Total Protein 7.2 (6.7-8.2) g/dl Albumin 4.1 (3.2-5.5) g/dl Globulin 3.1 Albumin/Globulin Ratio 1.32 Urine Color Yellow (YELLOW) Urine Appearance Clear (CLEAR) Urine pH 8.5 (5.0-9.0) Ur Specific [place] 1.015 (1.005-1.030) Urine Protein Negative (NEGATIVE) Urine Glucose (UA) Negative (NEGATIVE) Urine Ketones Negative (NEGATIVE) Urine Occult Blood Trace-intact H (NEGATIVE) Urine Nitrite Negative (NEGATIVE) Urine Bilirubin Negative (NEGATIVE) Urine Urobilinogen 0.2 (0.2-1.0) mg/dL Ur Leukocyte Esterase Negative (NEGATIVE) Urine RBC 0-5 /HPF Urine WBC 0-5 (0-5/HPF) /HPF Ur Epithelial Cells Occasional /HPF Amorphous Sediment Few (0/HPF) /HPF Urine Bacteria Few (0-FEW/HPF) /HPF Urine Mucus Occasional /LPF Meds: Medications Generic Name Dose Route Start Last Admin Trade Name Freq PRN Reason Stop Dose Admin Sodium Chloride 10 ml 02/11/18 08:30 02/11/18 09:00 Saline Flush FLUSH 10 ml ASDIRECTED PRN Administration Keep Vein Open Discontinued Medications Generic Name Dose Route Start Last Admin Trade Name Freq PRN Reason Stop Dose Admin Lactated Ringer's 1,000 mls @ 999 mls/hr 02/11/18 08:35 02/11/18 08:58 Ringers, Lactated IV 02/11/18 09:35 999 mls/hr .BOLUS ONE Administration - Re-Assessments/Exams Free Text/Narrative Re-Assessment/Exam: 02/11/18 12:01 She received 1 liter fluid bolus of Lactated Ringers, after this was feeling much better and able to ambulate to the bathroom with help of walker and 1 nursing staff. No dizziness/weakness with this. Departure - Departure Time of Disposition: 12:30 Disposition: Home, Home Health Agency 06 Clinical Impression: Pre-syncope - Discharge Information Instructions: Hypotension, [id number] Forms: ED Department Discharge Additional Instructions: As I discussed with family, Charito is on both Aricept (donepezil) and Namenda (memantadine) these are most likely no longer improving her dementia, and can cause side effects, such as dry mouth and mild dehydration. I would recommend you talk to her doctor about stopping these - Problem List & Annotations (1) Pre-syncope SNOMED Code(s): 698689861 Code(s): R55 - SYNCOPE AND COLLAPSE Status: Acute Priority: Medium Annotation/Comment:: She was mildly dehydrated upon arrival, is on 2 anticholinergic agents for dementia. Most likely orthostatic hypotension due to these agents, in context of mild dehydration and anti-hypertensive therapy as well - Problem List Review Problem List Initiated/Reviewed/Updated: Yes - My Orders Last 24 Hours: My Active Orders 02/11/18 08:30 Sodium Chloride 0.9% [Saline Flush] 10 ml FLUSH ASDIRECTED PRN Peripheral IV Insertion Adult [OM.PC] Stat 02/11/18 08:31 Cardiac Monitoring [RC] . DIRECTED EKG Documentation Completion [RC] STAT Peripheral IV Care [RC] . DIRECTED - Assessment/Plan Last 24 Hours: My Active Orders 02/11/18 08:30 Sodium Chloride 0.9% [Saline Flush] 10 ml FLUSH ASDIRECTED PRN Peripheral IV Insertion Adult [OM.PC] Stat 02/11/18 08:31 Cardiac Monitoring [RC] . DIRECTED EKG Documentation Completion [RC] STAT Peripheral IV Care [RC] . DIRECTED
--- NOTE | 2018-02-13 11:02 | EKG ---
02/11/2018- BRIANNA ELIZABETH - This is a standard 12-lead EKG showing normal sinus rhythm, ventricular rate 63 beats per minute. Normal MO interval, QRS duration. Normal axis. No significant ST-T changes. Normal EKG. [facility] /[id number]
== END 2018-02-11 12:05 | disposition home health service (06) ==
LOC: DL.ED 08:24
DX: R55 Syncope and collapse (principal); I10 Essential (primary) hypertension; E78.00 Pure hypercholesterolemia, unspecified; K21.9 Gastro-esophageal reflux disease without esophagitis; M19.90 Unspecified osteoarthritis, unspecified site; F41.9 Anxiety disorder, unspecified; F32.9 Major depressive disorder, single episode, unspecified; Z79.899 Other long term (current) drug therapy; Z79.82 Long term (current) use of aspirin; Z88.5 Allergy status to narcotic agent
CPT/HCPCS: 36415; 80053; 81001; 84484; 85025; 93005; 96360; 99284; J7050; J7120; 93010

== ENCOUNTER 2018-04-14 20:55 | Emergency (ER) | payer MEDICARE, BC, MEDICAID ==
--- NOTE | 2018-04-14 21:08 | EDM.PDOC ---
ED HPI GENERAL MEDICAL PROBLEM - General Chief Complaint: Lower Extremity Injury/Pain Stated Complaint: LEGS PAIN [id number] Time Seen by Provider: 04/14/18 21:06 Source of Information: Reports: Patient, Family History Limitations: Reports: No Limitations - History of Present Illness INITIAL COMMENTS - FREE TEXT/NARRATIVE: several days h/o progressive leg swelling pain some sob but denies CP. sleeping ok at night. - Related Data Allergies Allergy/AdvReac Type Severity Reaction Status Date / Time meperidine HCl [From Demerol] Allergy UNKNOWN Verified 04/14/18 21:27 Home Meds: Home Meds Aspirin [[place] Aspirin] 81 mg PO DAILY 04/08/15 [History] Donepezil HCl 10 mg PO BEDTIME 04/08/15 [History] Escitalopram [Lexapro] 15 mg PO BEDTIME 04/08/15 [History] Losartan Potassium [Cozaar] 100 mg PO DAILY 04/08/15 [History] Memantine [Namenda] 10 mg PO BID 04/08/15 [History] risperiDONE [RisperiDAL] 0.375 mg PO BEDTIME 04/08/15 [History] Hydrochlorothiazide 25 mg PO DAILY #30 tablet 04/10/15 [Rx] Clopidogrel [Plavix] 75 mg PO DAILY #30 tablet 07/09/16 [Rx] Pantoprazole Sodium [Protonix] 20 mg PO DAILY 12/14/16 [History] Simvastatin [Zocor] 40 mg PO BEDTIME 12/14/16 [History] amLODIPine [Norvasc] 5 mg PO BEDTIME 05/12/17 [History] cloNIDine [Catapres] 0.1 mg PO Q12HR 04/14/18 [History] Past Medical History - Past Health History Medical/Surgical History: Denies Medical/Surgical History HEENT History: Reports: Impaired Vision Cardiovascular History: Reports: Heart Murmur, High Cholesterol, Hypertension Other Cardiovascular History: history of bradycardia Gastrointestinal History: Reports: GERD Other Gastrointestinal History: colonic diverticular disease Genitourinary History: Reports: Urinary Incontinence, UTI, 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 OB/BYN History: 1 NVD Musculoskeletal History: Reports: Arthritis Neurological History: Reports: TIA, Other (See Below) Other Neuro History: dementia Psychiatric History: Reports: Anxiety, Dementia, Depression, Psychosis - Past Surgical History HEENT Surgical History: Reports: Cataract Surgery Musculoskeletal Surgical History: Reports: Joint Replacement, Knee Replacement Social & Family History - Family History Family Medical History: Noncontributory - Caffeine Use Caffeine Use: Reports: Coffee - Living Situation & Occupation Living situation: Reports: , Alone Occupation: Retired Review of Systems - Review of Systems Review Of Systems: ROS reveals no pertinent complaints other than HPI. ED EXAM, GENERAL - Physical Exam Exam: See Below Exam Limited By: No Limitations General Appearance: Alert, WD/WN, No Apparent Distress Ears: Hearing Grossly Normal Throat/Mouth: Normal Voice, No Airway Compromise Head: Atraumatic Neck: Non-Tender, Full Range of Motion Respiratory/Chest: No Respiratory Distress, No Accessory Muscle Use, Rales, Other (basilar) Cardiovascular: Regular Rate, Rhythm GI/Abdominal: Soft, Non-Tender Extremities: Pedal Edema, Other (bilateral R> 2+, NV wnl) Neurological: Alert, Normal Cognition, No Motor/Sensory Deficits, Other (gait limited to discomfort) Psychiatric: Normal Affect, Normal Mood Skin Exam: Warm, Dry, Normal Color Lymphatic: No Adenopathy Course - Vital Signs Last Recorded V/S: Last Vital Signs Temp 36.1 C 04/14/18 21:05 Pulse 63 04/14/18 21:05 Resp 19 04/14/18 21:05 BP 133/46 L 04/14/18 21:05 Pulse Ox 97 04/14/18 21:05 - Orders/Labs/Meds Labs: Laboratory Tests 04/14/18 04/14/18 Range/Units 21:20 21:20 WBC 7.2 (5.0-10.0) 10^3/uL RBC 3.50 L (4.2-5.4) 10^6/uL Hgb 11.0 L D (12.0-16.0) g/dL Hct 33.3 L (37.0-47.0) % MCV 95.1 D (80-100) fL MCH 31.4 (27.0-34.0) pg MCHC 33.0 (33.0-35.0) g/dL Plt Count 168 (150-450) 10^3/uL Neut % (Auto) 59.7 (42.2-75.2) % Lymph % (Auto) 24.2 (20.5-50.1) % [place] % (Auto) 10.8 H (2-8) % Eos % (Auto) 5.2 H (1.0-3.0) % Baso % (Auto) 0.1 (0.0-1.0) % Sodium 135 (135-145) mmol/L Potassium 3.9 (3.6-5.0) mmol/L Chloride 101 D (101-111) mmol/L Carbon Dioxide 29.0 (21.0-31.0) mmol/L Anion Gap 8.9 BUN 17 (7-18) mg/dL Creatinine 1.0 (0.6-1.3) mg/dL Est Cr Clr Drug Dosing 46.90 mL/min Estimated GFR (MDRD) 54 BUN/Creatinine Ratio 17.00 Glucose 88 (74-105) mg/dL Calcium 9.0 (8.4-10.2) mg/dl Total Bilirubin 0.4 (0.2-1.0) mg/dL AST 17 (10-42) IU/L ALT 12 (10-60) IU/L Alkaline Phosphatase 51 (42-121) IU/L B-Natriuretic Peptide 185 H (0-100) pg/ml Total Protein 6.7 (6.7-8.2) g/dl Albumin 3.5 (3.2-5.5) g/dl Globulin 3.2 Albumin/Globulin Ratio 1.09 Meds: Medications Discontinued Medications Generic Name Dose Route Start Last Admin Trade Name Freq PRN Reason Stop Dose Admin Hydrochlorothiazide 25 mg 04/14/18 22:17 Hydrochlorothiazide PO 04/14/18 22:18 ONETIME ONE - Re-Assessments/Exams Free Text/Narrative Re-Assessment/Exam: 04/14/18 22:18 results discussed with family, pt has no c/o presently. Departure - Departure Time of Disposition: 22:19 Disposition: Home, Self-Care 01 Condition: Fair Clinical Impression: Leg edema - Discharge Information Instructions: Edema, [id number] Forms: ED Department Discharge Additional Instructions: 1) elevate legs as much as possible next 48 hours 2) see family doctor Tuesday 3) recheck if there is any change or concern rx given; HCTZ 25mg daily x 4
[2018-04-14 21:48] LABS: ANION GAP 8.9
[2018-04-14] MEDS ORDERED: Hydrochlorothiazide 25 MG Tab PO ONE (22:17)
[2018-04-14 22:52] VITALS: BP 128/47
== END 2018-04-14 22:45 | disposition home or self-care (01) ==
LOC: DL.ED 20:55
DX: R60.0 Localized edema (principal); E78.00 Pure hypercholesterolemia, unspecified; I10 Essential (primary) hypertension; K21.9 Gastro-esophageal reflux disease without esophagitis; Z88.5 Allergy status to narcotic agent; Z79.82 Long term (current) use of aspirin; Z79.899 Other long term (current) drug therapy
CPT/HCPCS: 36415; 71045; 80053; 83880; 85025; 99283; 99284; A9270

== ENCOUNTER 2018-08-16 14:36 | Emergency (ER) | payer MEDICARE, BC, MEDICAID ==
[2018-08-16 15:02] VITALS: BP 153/56
--- NOTE | 2018-08-16 15:50 | EDM.PDOC ---
ED HPI GENERAL MEDICAL PROBLEM - General Chief Complaint: Respiratory Problem Stated Complaint: UNKNOWN Time Seen by Provider: 08/16/18 15:15 Source of Information: Reports: EMS, EMS Notes Reviewed, Family, RN, RN Notes Reviewed History Limitations: Reports: Other (dementia) - History of Present Illness INITIAL COMMENTS - FREE TEXT/NARRATIVE: Patient presents to ER per [facility] after electric motor and generator assembler was unable to wake the patient. Patient has dementia and lives at home with 24/7 electric motor and generator assembler. Daughter in law states she recently saw her PCP (Dr. Sheridan) and was diagnosed with CHF and bronchitis. She was started on Augmentin, which she finished yesterday. Upon arrival to the ER the patient is alert and family states back to her baseline. Onset: Today Location: Reports: Generalized Severity: Moderate Improves with: Reports: None Worsens with: Reports: None Associated Symptoms: Reports: No Other Symptoms - Related Data Allergies Allergy/AdvReac Type Severity Reaction Status Date / Time meperidine HCl [From Demerol] Allergy UNKNOWN Verified 04/14/18 21:27 Home Meds: Home Meds Aspirin [[place] Aspirin EC] 81 mg PO DAILY 04/08/15 [History] Donepezil HCl 10 mg PO BEDTIME 04/08/15 [History] Escitalopram [Lexapro] 15 mg PO BEDTIME 04/08/15 [History] Losartan Potassium [Cozaar] 100 mg PO DAILY 04/08/15 [History] Memantine [Namenda] 10 mg PO BID 04/08/15 [History] risperiDONE [RisperiDAL] 0.375 mg PO BEDTIME 04/08/15 [History] hydroCHLOROthiazide [Hydrochlorothiazide] 25 mg PO DAILY #30 tablet 04/10/15 [Rx ] Clopidogrel [Plavix] 75 mg PO DAILY #30 tablet 07/09/16 [Rx] Pantoprazole Sodium [Protonix] 20 mg PO DAILY 12/14/16 [History] Simvastatin [Zocor] 40 mg PO BEDTIME 12/14/16 [History] amLODIPine [Norvasc] 10 mg PO BEDTIME 05/12/17 [History] Past Medical History - Past Health History Medical/Surgical History: Denies Medical/Surgical History HEENT History: Reports: Impaired Vision Cardiovascular History: Reports: Heart Murmur, High Cholesterol, Hypertension Other Cardiovascular History: history of bradycardia Gastrointestinal History: Reports: GERD Other Gastrointestinal History: colonic diverticular disease Genitourinary History: Reports: Urinary Incontinence, UTI, Recurrent 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 History: 1 NVD Musculoskeletal History: Reports: Arthritis Neurological History: Reports: TIA, Other (See Below) Other Neuro History: dementia Psychiatric History: Reports: Anxiety, Dementia, Depression, Psychosis - Past Surgical History HEENT Surgical History: Reports: Cataract Surgery Musculoskeletal Surgical History: Reports: Joint Replacement, Knee Replacement Social & Family History - Family History Family Medical History: Noncontributory - Caffeine Use Caffeine Use: Reports: Coffee - Living Situation & Occupation Living situation: Reports: , Alone Occupation: Retired ED ROS GENERAL - Review of Systems Review Of Systems: ROS reveals no pertinent complaints other than HPI. ED EXAM, GENERAL - Physical Exam Exam: See Below Exam Limited By: Other (dementia) General Appearance: Alert, WD/WN, No Apparent Distress Eye Exam: Bilateral Eye: Other (2 sluggish) Ears: Normal External Exam, Normal Canal, Hearing Grossly Normal, Normal TMs Nose: Normal Inspection, Normal Mucosa, No Blood Throat/Mouth: Normal Inspection, Normal Lips, Normal Teeth, Normal Gums, Normal Oropharynx, Normal Voice, No Airway Compromise Head: Atraumatic, Normocephalic Neck: Normal Inspection, Supple, Non-Tender, Full Range of Motion Respiratory/Chest: Crackles (diminished crackles bases bilaterally) Cardiovascular: Other (murmur, bradycardic and irregular) GI/Abdominal: Normal Bowel Sounds, Soft, Non-Tender, No Organomegaly, No Distention, No Abnormal Bruit, No Mass (Female) Exam: Other (incontinent) Rectal (Female) Exam: Deferred Back Exam: Normal Inspection, Full Range of Motion, NT Extremities: Normal Inspection, Normal Range of Motion, Non-Tender, Normal Capillary Refill, No Pedal Edema Neurological: Alert Psychiatric: Other (confused) Skin Exam: Warm, Dry, Intact, Normal Color, No Rash Lymphatic: No Adenopathy Course - Vital Signs Last Recorded V/S: Last Vital Signs Temp 97.8 F 08/16/18 14:35 Pulse 68 08/16/18 14:35 Resp 18 08/16/18 14:35 BP 153/56 H 08/16/18 14:35 Pulse Ox 99 08/16/18 14:35 - Orders/Labs/Meds Labs: Laboratory Tests 08/16/18 08/16/18 08/16/18 Range/Units 14:50 15:30 15:30 WBC 7.8 (5.0-10.0) 10^3/uL RBC 3.94 L (4.2-5.4) 10^6/uL Hgb 12.0 (12.0-16.0) g/dL Hct 35.3 L (37.0-47.0) % MCV 89.6 D (80-100) fL MCH 30.5 (27.0-34.0) pg MCHC 34.0 (33.0-35.0) g/dL Plt Count 203 (150-450) 10^3/uL Neut % (Auto) 81.0 H (42.2-75.2) % Lymph % (Auto) 12.9 L (20.5-50.1) % [place] % (Auto) 5.5 (2-8) % Eos % (Auto) 0.5 L (1.0-3.0) % Baso % (Auto) 0.1 (0.0-1.0) % Sodium 124 L D (135-145) mmol/L Potassium 4.1 (3.6-5.0) mmol/L Chloride 86 L D (101-111) mmol/L Carbon Dioxide 30.0 (21.0-31.0) mmol/L Anion Gap 12.1 BUN 13 (7-18) mg/dL Creatinine 0.8 (0.6-1.3) mg/dL Est Cr Clr Drug Dosing 58.63 mL/min Estimated GFR (MDRD) > 60 BUN/Creatinine Ratio 16.25 Glucose 120 H (74-105) mg/dL POC Glucose 121 H (83-110) mg/dl Calcium 9.3 (8.4-10.2) mg/dl Total Bilirubin 0.4 (0.2-1.0) mg/dL AST 21 (10-42) IU/L ALT 19 (10-60) IU/L Alkaline Phosphatase 61 (42-121) IU/L B-Natriuretic Peptide 113 H (0-100) pg/ml Total Protein 7.4 (6.7-8.2) g/dl Albumin 4.1 (3.2-5.5) g/dl Globulin 3.3 Albumin/Globulin Ratio 1.24 Urine Color (YELLOW) Urine Appearance (CLEAR) Urine pH (5.0-9.0) Ur Specific [place] (1.005-1.030) Urine Protein (NEGATIVE) Urine Glucose (UA) (NEGATIVE) Urine Ketones (NEGATIVE) Urine Occult Blood (NEGATIVE) Urine Nitrite (NEGATIVE) Urine Bilirubin (NEGATIVE) Urine Urobilinogen (0.2-1.0) mg/dL Ur Leukocyte Esterase (NEGATIVE) Urine RBC /HPF Urine WBC (0-5/HPF) /HPF Ur Epithelial Cells /HPF Amorphous Sediment (0/HPF) /HPF Urine Bacteria (0-FEW/HPF) /HPF 08/16/18 Range/Units 15:59 WBC (5.0-10.0) 10^3/uL RBC (4.2-5.4) 10^6/uL Hgb (12.0-16.0) g/dL Hct (37.0-47.0) % MCV (80-100) fL MCH (27.0-34.0) pg MCHC (33.0-35.0) g/dL Plt Count (150-450) 10^3/uL Neut % (Auto) (42.2-75.2) % Lymph % (Auto) (20.5-50.1) % [place] % (Auto) (2-8) % Eos % (Auto) (1.0-3.0) % Baso % (Auto) (0.0-1.0) % Sodium (135-145) mmol/L Potassium (3.6-5.0) mmol/L Chloride (101-111) mmol/L Carbon Dioxide (21.0-31.0) mmol/L Anion Gap BUN (7-18) mg/dL Creatinine (0.6-1.3) mg/dL Est Cr Clr Drug Dosing mL/min Estimated GFR (MDRD) BUN/Creatinine Ratio Glucose (74-105) mg/dL POC Glucose (83-110) mg/dl Calcium (8.4-10.2) mg/dl Total Bilirubin (0.2-1.0) mg/dL AST (10-42) IU/L ALT (10-60) IU/L Alkaline Phosphatase (42-121) IU/L B-Natriuretic Peptide (0-100) pg/ml Total Protein (6.7-8.2) g/dl Albumin (3.2-5.5) g/dl Globulin Albumin/Globulin Ratio Urine Color Light yellow (YELLOW) Urine Appearance Clear (CLEAR) Urine pH 7.0 (5.0-9.0) Ur Specific [place] 1.015 (1.005-1.030) Urine Protein Negative (NEGATIVE) Urine Glucose (UA) Negative (NEGATIVE) Urine Ketones Negative (NEGATIVE) Urine Occult Blood Trace-lysed H (NEGATIVE) Urine Nitrite Negative (NEGATIVE) Urine Bilirubin Negative (NEGATIVE) Urine Urobilinogen 0.2 (0.2-1.0) mg/dL Ur Leukocyte Esterase Negative (NEGATIVE) Urine RBC 5-10 H /HPF Urine WBC 0-5 (0-5/HPF) /HPF Ur Epithelial Cells Rare /HPF Amorphous Sediment Rare (0/HPF) /HPF Urine Bacteria Rare (0-FEW/HPF) /HPF Departure - Departure Time of Disposition: 16:22 Disposition: Home, W Home Health Agency 06 Condition: Fair Clinical Impression: Hyponatremia, Hypochloremia - Discharge Information *PRESCRIPTION DRUG MONITORING PROGRAM REVIEWED*: No *COPY OF PRESCRIPTION DRUG MONITORING REPORT IN PATIENT DAIJA: No Instructions: Hyponatremia Forms: ED Department Discharge Additional Instructions: Follow up with your primary care facility Return to the ER with any further problems.
[2018-08-16 15:56] LABS: ANION GAP 12.1; CHLORIDE,CL 86 mmol/L (101-111); SODIUM,NA 124 mmol/L (135-145)
--- NOTE | 2018-08-16 16:18 | CR ---
Medical history: 72-year-old emergency Department with chest pain. Interpretation: Upright AP portable chest film reveals some patchy atelectasis or bronchiectasis in t he right cardiophrenic angle is present on 14 Apr 2018 exam. Normal cardiac silhouette without cephalization of flow and new signs of alveolar edema or dependent pleural effusion. No new lung mass, hilar lymphadenopathy or focal lobar pneumonia. No pneumothorax or free subdiaphragmatic air. Hypertrophic arthritic changes of the dorsal spine. CONCLUSION: No acute new cardiopulmonary abnormality since 14 Apr 2018.
== END 2018-08-16 16:45 | disposition home health service (06) ==
LOC: DL.ED 14:36
DX: E87.1 Hypo-osmolality and hyponatremia (principal); E87.8 Other disorders of electrolyte and fluid balance, not elsewhere classified; I10 Essential (primary) hypertension; Z88.8 Allergy status to other drugs, medicaments and biological substances; Z79.899 Other long term (current) drug therapy
CPT/HCPCS: 36415; 71045; 80053; 81001; 82962; 83880; 85025; 99284

== ENCOUNTER 2019-03-17 16:00 | Emergency (ER) | payer MEDICARE, BC, MEDICAID ==
[2019-03-17] MEDS ORDERED: Sodium Chloride 0.9% 10 ML Syringe FLUSH PRN (16:09)
[2019-03-17 17:43] LABS: CHLORIDE,CL 97 mmol/L (101-111); SODIUM,NA 134 mmol/L (135-145)
[2019-03-17 17:59] VITALS: BP 160/49
--- NOTE | 2019-03-17 18:42 | EDM.PDOC ---
Scribed by Edith Diego 03/17/19 [id number] for Nessa Kwok NP <Nessa Kwok - Last Filed: 03/17/19 18:41> ED HPI GENERAL MEDICAL PROBLEM - General Chief Complaint: Respiratory Problem Stated Complaint: AMBULANCE/BREATHING ISSUES Time Seen by Provider: 03/17/19 16:00 Source of Information: Reports: EMS, EMS Notes Reviewed, Family, RN, RN Notes Reviewed History Limitations: Reports: Other (dementia) - History of Present Illness INITIAL COMMENTS - FREE TEXT/NARRATIVE: Patient presented to ER per [facility]. Patient is very confused, dementia, and this is not new. FAmily states the patient was seen in clinic yesterday and diagnosed with bronchitis and UTI. Started on oral antibiotics. Family states no improvement in fact worse today. She is very weak and unable to stand. It took 3 to transfer to bathroom. Onset: Today Duration: Getting Worse Location: Reports: Generalized Severity: Moderate Improves with: Reports: None Worsens with: Reports: None Associated Symptoms: Reports: No Other Symptoms - Related Data Allergies Allergy/AdvReac Type Severity Reaction Status Date / Time meperidine HCl [From Demerol] Allergy UNKNOWN Verified 04/14/18 21:27 Home Meds: Home Meds Aspirin [Anson Aspirin EC] 81 mg PO DAILY 04/08/15 [History] Donepezil HCl 10 mg PO BEDTIME 04/08/15 [History] Escitalopram [Lexapro] 15 mg PO BEDTIME 04/08/15 [History] Losartan Potassium [Cozaar] 100 mg PO DAILY 04/08/15 [History] Memantine [Namenda] 10 mg PO BID 04/08/15 [History] risperiDONE [RisperiDAL] 0.375 mg PO BEDTIME 04/08/15 [History] hydroCHLOROthiazide [Hydrochlorothiazide] 25 mg PO DAILY #30 tablet 04/10/15 [Rx ] Clopidogrel [Plavix] 75 mg PO DAILY #30 tablet 07/09/16 [Rx] Pantoprazole Sodium [Protonix] 20 mg PO DAILY 12/14/16 [History] Simvastatin [Zocor] 40 mg PO BEDTIME 12/14/16 [History] amLODIPine [Norvasc] 10 mg PO BEDTIME 05/12/17 [History] Albuterol Sulfate 2.5 mg IH Q4HR PRN 03/17/19 [History] Past Medical History - Past Health History Medical/Surgical History: Denies Medical/Surgical History HEENT History: Reports: Impaired Vision Other HEENT History: wears glasses Cardiovascular History: Reports: Heart Murmur, High Cholesterol, Hypertension Other Cardiovascular History: history of bradycardia Gastrointestinal History: Reports: GERD Other Gastrointestinal History: colonic diverticular disease Genitourinary History: Reports: Urinary Incontinence, UTI, Recurrent 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 FINISHER History: 1 NVD Musculoskeletal History: Reports: Arthritis Neurological History: Reports: TIA, Other (See Below) Other Neuro History: dementia Psychiatric History: Reports: Anxiety, Dementia, Depression, Psychosis - Past Surgical History HEENT Surgical History: Reports: Cataract Surgery Musculoskeletal Surgical History: Reports: Joint Replacement, Knee Replacement Social & Family History - Family History Family Medical History: Noncontributory - Tobacco Use Smoking Status *Q: Never Smoker Second Hand Smoke Exposure: No - Caffeine Use Caffeine Use: Reports: Coffee - Recreational Drug Use Recreational Drug Use: No - Living Situation & Occupation Living situation: Reports: , Alone Occupation: Retired ED ROS GENERAL - Review of Systems Review Of Systems: ROS reveals no pertinent complaints other than HPI. ED EXAM, GENERAL - Physical Exam Exam: See Below Exam Limited By: No Limitations General Appearance: Other (dementia) Eye Exam: Bilateral Eye: EOMI, Normal Inspection, PERRL Ears: Normal External Exam, Normal Canal, Hearing Grossly Normal, Normal TMs Nose: Normal Inspection, Normal Mucosa, No Blood Throat/Mouth: Normal Inspection, Normal Lips, Normal Teeth, Normal Gums, Normal Oropharynx, Normal Voice, No Airway Compromise Head: Atraumatic, Normocephalic Neck: Normal Inspection, Supple, Non-Tender, Full Range of Motion Respiratory/Chest: Other (diminished) Cardiovascular: Other (murmur) GI/Abdominal: Tender (right lower quadrant and left lower quadrant. ) (Female) Exam: Deferred Rectal (Female) Exam: Deferred Neurological: Other (confused/dementia) Psychiatric: Other (answers inapprorpiately) Skin Exam: Pallor (and pale) Lymphatic: No Adenopathy Course - Vital Signs Last Recorded V/S: Last Vital Signs Temp 37.2 C 03/17/19 19:03 Pulse 83 03/17/19 17:58 Resp 14 03/17/19 17:58 BP 160/49 H 03/17/19 17:58 Pulse Ox 92 L 03/17/19 17:58 - Orders/Labs/Meds Orders: Active Orders 24 hr Category Date Time Status EKG Documentation Completion [RC] STAT Care 03/17/19 16:09 Active Peripheral IV Care [RC] . DIRECTED Care 03/17/19 16:10 Active Sodium Chloride 0.9% [Saline Flush] Med 03/17/19 16:09 Active 10 ml FLUSH ASDIRECTED PRN Peripheral IV Insertion Adult [OM.PC] Stat Oth 03/17/19 16:09 Ordered Medication Orders Sodium Chloride (Saline Flush) 10 ml FLUSH ASDIRECTED PRN PRN Reason: Keep Vein Open Last Admin: 03/17/19 16:37 Dose: 10 ml Labs: Laboratory Tests 03/17/19 03/17/19 03/17/19 Range/Units 16:34 16:34 16:34 WBC 8.9 (5.0-10.0) 10^3/uL RBC 3.77 L (4.2-5.4) 10^6/uL Hgb 11.2 L (12.0-16.0) g/dL Hct 34.3 L (37.0-47.0) % MCV 91.0 (80-100) fL MCH 29.7 (27.0-34.0) pg MCHC 32.7 L (33.0-35.0) g/dL Plt Count 197 (150-450) 10^3/uL Neut % (Auto) 88.1 H (42.2-75.2) % Lymph % (Auto) 2.9 L (20.5-50.1) % [place] % (Auto) 7.7 (2-8) % Eos % (Auto) 1.2 (1.0-3.0) % Baso % (Auto) 0.1 (0.0-1.0) % PT 9.6 (9.0-12.0) SEC INR 1.0 (0.9-1.2) Sodium 134 L D (135-145) mmol/L Potassium 4.0 (3.6-5.0) mmol/L Chloride 97 L (101-111) mmol/L Carbon Dioxide 25.0 (21.0-31.0) mmol/L Anion Gap 16.0 BUN 15 (7-18) mg/dL Creatinine 1.1 (0.6-1.3) mg/dL Est Cr Clr Drug Dosing 43.63 mL/min Estimated GFR (MDRD) 49 BUN/Creatinine Ratio 13.63 Glucose 121 H (74-105) mg/dL Calcium 9.6 (8.4-10.2) mg/dl Total Bilirubin 0.9 (0.2-1.0) mg/dL AST 21 (10-42) IU/L ALT 13 (10-60) IU/L Alkaline Phosphatase 69 (42-121) IU/L Troponin I < 0.02 (0.00-0.02) ng/ml B-Natriuretic Peptide 96 (0-100) pg/ml Total Protein 7.4 (6.7-8.2) g/dl Albumin 3.9 (3.2-5.5) g/dl Globulin 3.5 Albumin/Globulin Ratio 1.11 Urine Color (YELLOW) Urine Appearance (CLEAR) Urine pH (5.0-9.0) Ur Specific Benedict (1.005-1.030) Urine Protein (NEGATIVE) Urine Glucose (UA) (NEGATIVE) Urine Ketones (NEGATIVE) Urine Occult Blood (NEGATIVE) Urine Nitrite (NEGATIVE) Urine Bilirubin (NEGATIVE) Urine Urobilinogen (0.2-1.0) mg/dL Ur Leukocyte Esterase (NEGATIVE) Urine RBC /HPF Urine WBC (0-5/HPF) /HPF Ur Epithelial Cells /HPF Urine Bacteria (0-FEW/HPF) /HPF Hyaline Casts /LPF Urine Mucus /LPF 03/17/19 Range/Units 16:40 WBC (5.0-10.0) 10^3/uL RBC (4.2-5.4) 10^6/uL Hgb (12.0-16.0) g/dL Hct (37.0-47.0) % MCV (80-100) fL MCH (27.0-34.0) pg MCHC (33.0-35.0) g/dL Plt Count (150-450) 10^3/uL Neut % (Auto) (42.2-75.2) % Lymph % (Auto) (20.5-50.1) % [place] % (Auto) (2-8) % Eos % (Auto) (1.0-3.0) % Baso % (Auto) (0.0-1.0) % PT (9.0-12.0) SEC INR (0.9-1.2) Sodium (135-145) mmol/L Potassium (3.6-5.0) mmol/L Chloride (101-111) mmol/L Carbon Dioxide (21.0-31.0) mmol/L Anion Gap BUN (7-18) mg/dL Creatinine (0.6-1.3) mg/dL Est Cr Clr Drug Dosing mL/min Estimated GFR (MDRD) BUN/Creatinine Ratio Glucose (74-105) mg/dL Calcium (8.4-10.2) mg/dl Total Bilirubin (0.2-1.0) mg/dL AST (10-42) IU/L ALT (10-60) IU/L Alkaline Phosphatase (42-121) IU/L Troponin I (0.00-0.02) ng/ml B-Natriuretic Peptide (0-100) pg/ml Total Protein (6.7-8.2) g/dl Albumin (3.2-5.5) g/dl Globulin Albumin/Globulin Ratio Urine Color Yellow (YELLOW) Urine Appearance Clear (CLEAR) Urine pH 7.5 (5.0-9.0) Ur Specific Benedict 1.020 (1.005-1.030) Urine Protein >=300 H (NEGATIVE) Urine Glucose (UA) Negative (NEGATIVE) Urine Ketones Negative (NEGATIVE) Urine Occult Blood Trace-intact H (NEGATIVE) Urine Nitrite Negative (NEGATIVE) Urine Bilirubin Negative (NEGATIVE) Urine Urobilinogen 0.2 (0.2-1.0) mg/dL Ur Leukocyte Esterase Negative (NEGATIVE) Urine RBC 0-5 /HPF Urine WBC 0-5 (0-5/HPF) /HPF Ur Epithelial Cells Rare /HPF Urine Bacteria Few (0-FEW/HPF) /HPF Hyaline Casts Many H /LPF Urine Mucus Moderate H /LPF Meds: Medications Generic Name Dose Route Start Last Admin Trade Name Freq PRN Reason Stop Dose Admin Sodium Chloride 10 ml 03/17/19 16:09 03/17/19 16:37 Saline Flush FLUSH 10 ml ASDIRECTED PRN Administration Keep Vein Open Departure - Departure Disposition: DC/Tfer to [facility] Clinical Impression: Weakness, Gliosis Fever Qualifiers: Fever type: due to other condition Qualified Code(s): R50.81 - Fever presenting with conditions classified elsewhere - Discharge Information Forms: Interfacility Transfer EMTALA <Chris Sarah - Last Filed: 03/17/19 19:58> Course - Re-Assessments/Exams Free Text/Narrative Re-Assessment/Exam: 03/17/19 19:31 results discussed with family who are unable to care for pt in her current situation. case discussed with Dr Gonzalez who rec' GF transf for neuro consult & MRI. 03/17/19 19:[address] Sood @ who kindly accepted pt. Departure - Departure Time of Disposition: 19:56 Condition: Fair I have read and agree with the documentation that has been completed regarding this visit. By signing this record, I attest that the documentation was completed in my physical presence and is an accurate record of the encounter.
== END 2019-03-17 21:00 ==
LOC: DL.ED 16:00
DX: R53.1 Weakness (principal); R50.81 Fever presenting with conditions classified elsewhere; G93.89 Other specified disorders of brain; F41.9 Anxiety disorder, unspecified; K21.9 Gastro-esophageal reflux disease without esophagitis; Z79.82 Long term (current) use of aspirin; Z79.899 Other long term (current) drug therapy; Z88.5 Allergy status to narcotic agent
CPT/HCPCS: 36415; 51702; 70450; 71045; 80053; 81001; 83880; 84484; 85025; 85610; 87804; 93005; 99285-25

== ENCOUNTER 2019-03-26 14:54 | Observation (INO) | payer MEDICARE, BC, MEDICAID ==
[2019-03-26] MEDS ORDERED: Albuterol 0.083% 2.5 MG/3 ML Neb Soln INH PRN (18:20)
--- NOTE | 2019-03-26 18:29 | PCM.HP ---
H&P History of Present Illness - General Date of Service: 03/26/19 Admit Problem/Dx: Admission Diagnosis/Problem Admission Diagnosis/Problem Failure to thrive Source of Information: Patient History Limitations: Reports: Other (dementia) - History of Present Illness Initial Comments - Free Text/Narative: Charito Chatman a 73 y.o.femalewith past medical history significant for severe dementia, depression, anxiety, paranoia, obesity, dyslipidemia, hypertension, GERD, heart failure with preserved ejection fraction(concentric LVH with EF>60%, grade I DD),Mitral regurgitation,diverticulosis, admitted directly from the clinic for failure to thrive, worsening dementia, and weakness needing assistance for mobility. Patient is a poor historian due to severe dementia. Unable to obtain history. Discussed with Dr. Sheridan her PCP who recommended the admission. Patient was recently admitted and discharged from the hospital on 03/21/2019. She was managed for encephalopathy which after extensive work up was determined to be progressive/worsening dementia. She was recommended for NH placement during that admission but family decided to take her home. During a follow up PCP this morning, her family reports that they are unable to take care of her at home and would like her to be placed. - Related Data Allergies/Adverse Reactions: Allergies Allergy/AdvReac Type Severity Reaction Status Date / Time meperidine HCl [From Demerol] Allergy UNKNOWN Verified 04/14/18 21:27 Home Medications: Home Meds Aspirin [Moody Aspirin EC] 81 mg PO DAILY 04/08/15 [History] Donepezil HCl 10 mg PO BEDTIME 04/08/15 [History] Escitalopram [Lexapro] 15 mg PO BEDTIME 04/08/15 [History] Losartan Potassium [Cozaar] 100 mg PO DAILY 04/08/15 [History] Memantine [Namenda] 10 mg PO BID 04/08/15 [History] risperiDONE [RisperiDAL] 0.375 mg PO BEDTIME 04/08/15 [History] hydroCHLOROthiazide [Hydrochlorothiazide] 25 mg PO DAILY #30 tablet 04/10/15 [Rx ] Clopidogrel [Plavix] 75 mg PO DAILY #30 tablet 07/09/16 [Rx] Pantoprazole Sodium [Protonix] 20 mg PO DAILY 12/14/16 [History] Simvastatin [Zocor] 40 mg PO BEDTIME 12/14/16 [History] amLODIPine [Norvasc] 10 mg PO BEDTIME 05/12/17 [History] Albuterol Sulfate 2.5 mg IH Q4HR PRN 03/17/19 [History] Past Medical History - Past Health History Medical/Surgical History: Denies Medical/Surgical History HEENT History: Reports: Impaired Vision Other HEENT History: wears glasses Cardiovascular History: Reports: Heart Murmur, High Cholesterol, Hypertension Other Cardiovascular History: history of bradycardia Gastrointestinal History: Reports: GERD Other Gastrointestinal History: colonic diverticular disease Genitourinary History: Reports: Urinary Incontinence, UTI, Recurrent [employer]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 History: 1 NVD Musculoskeletal History: Reports: Arthritis Neurological History: Reports: TIA, Other (See Below) Other Neuro History: dementia Psychiatric History: Reports: Anxiety, Dementia, Depression, Psychosis - Infectious Disease History Infectious Disease History: Reports: Chicken Pox - Past Surgical History HEENT Surgical History: Reports: Cataract Surgery Musculoskeletal Surgical History: Reports: Joint Replacement, Knee Replacement Social & Family History - Family History Family Medical History: Noncontributory - Tobacco Use Smoking Status *Q: Never Smoker Second Hand Smoke Exposure: No - Caffeine Use Caffeine Use: Reports: Coffee - Recreational Drug Use Recreational Drug Use: No - Living Situation & Occupation Living situation: Reports: , Alone Occupation: Retired H&P Review of Systems - Review of Systems: Review Of Systems: Unable To Obtain (severe dementia) Exam - Exam Exam: See Below - Vital Signs Vital Signs: Last Vital Signs Temp 36.5 C 03/26/19 14:55 Pulse 67 03/26/19 14:55 Resp 18 03/26/19 14:55 BP 152/57 H 03/26/19 14:55 Pulse Ox 99 03/26/19 14:55 Weight: 107.592 kg - Exam General: Other (confused) HEENT: Conjunctiva Clear, EOMI, Hearing Intact Neck: Supple, Trachea Midline Lungs: Clear to Auscultation Cardiovascular: Normal S1, Normal S2, Systolic Murmur GI/Abdominal Exam: Normal Bowel Sounds Extremities: Pedal Edema Problem List Initiated/Reviewed/Updated: Yes Orders Last 24hrs: Active Orders 24 hr Category Date Time Status Patient Status [ADT] Routine ADT 03/26/19 18:18 Ordered Ambulate [RC] ASDIRECTED Care 03/26/19 18:18 Ordered Height and Weight [RC] DAILY Care 03/26/19 18:18 Ordered Peripheral IV Care [RC] . DIRECTED Care 03/26/19 18:18 Ordered Up With Assistance [RC] ASDIRECTED Care 03/26/19 18:18 Ordered VTE/DVT Education [RC] PER UNIT ROUTINE Care 03/26/19 18:18 Ordered Vital Signs [RC] Q4H Care 03/26/19 18:18 Ordered Regular Diet [DIET] Diet 03/26/19 Dinner Ordered Albuterol [Proventil Neb Soln] Med 03/26/19 18:20 Ordered 2.5 mg INH Q4HR PRN Aspirin [Halfprin] Med 03/27/19 09:00 Ordered 81 mg PO DAILY Clopidogrel [Plavix] Med 03/27/19 09:00 Ordered 75 mg PO DAILY Donepezil [Aricept] Med 03/26/19 21:00 Ordered 10 mg PO BEDTIME Escitalopram [Lexapro] Med 03/26/19 21:00 Ordered 15 mg PO BEDTIME Losartan Potassium [Cozaar] Med 03/27/19 09:00 Ordered 100 mg PO DAILY Memantine [Namenda] Med 03/26/19 21:00 Ordered 10 mg PO BID Pantoprazole Sodium [Protonix] Med 03/27/19 09:00 Ordered 20 mg PO DAILY Simvastatin [Zocor] Med 03/26/19 21:00 Ordered 40 mg PO BEDTIME Sodium Chloride 0.9% [Saline Flush] Med 03/26/19 18:18 Ordered 10 ml FLUSH ASDIRECTED PRN amLODIPine [Norvasc] Med 03/26/19 21:00 Ordered 10 mg PO BEDTIME hydroCHLOROthiazide Med 03/27/19 09:00 Ordered 25 mg PO DAILY risperiDONE [RisperiDAL] Med 03/26/19 21:00 Ordered 0.375 mg PO BEDTIME Peripheral IV Insertion Adult [OM.PC] Routine Oth 03/26/19 18:18 Ordered Medication Orders Sodium Chloride (Saline Flush) 10 ml FLUSH ASDIRECTED PRN PRN Reason: Keep Vein Open Assessment/Plan Comment:: #Severe dementia #Ambulatory dysfunction needs placement as family cannot take care of her at home PT/OT continue namenda, aricept #CHF, diastolic, chronic #Mitral regurg will start oral lasix fluid restriction salt restriction in diet #HTN continue home BP meds #Hx of CAD continue asa, plavix, statin #Hx of COPD stable, no wheezing PRN albuterol #DVT ppx SC heparin
[2019-03-26] MEDS ORDERED: Heparin Sodium 5,000 Units/ML Vial SUBCUT SCH (18:45)
[2019-03-26] MEDS: Furosemide 20 MG Tab PO SCH (22:37)
[2019-03-26] MEDS: Donepezil 10 MG Tab PO SCH (22:38)
[2019-03-26] MEDS: amLODIPine 5 MG Tab PO SCH (22:39)
[2019-03-26] MEDS: Memantine 10 MG Tab PO SCH (22:40)
[2019-03-26] MEDS: Simvastatin 40 MG Tab PO SCH (22:40)
[2019-03-26] MEDS: risperiDONE 0.5 MG Tab PO SCH (22:40)
[2019-03-26] MEDS: Escitalopram 10 MG Tab PO SCH (22:41)
[2019-03-26] MEDS: Heparin Sodium 5,000 Units/ML Vial SUBCUT SCH (22:42)
[2019-03-27] MEDS: Pantoprazole 40 MG Tab.CR PO SCH (06:33)
[2019-03-27] MEDS: Heparin Sodium 5,000 Units/ML Vial SUBCUT SCH ×3 (06:33→22:11)
[2019-03-27] MEDS ORDERED: Hydrochlorothiazide 25 MG Tab PO SCH (09:00)
--- NOTE | 2019-03-27 10:02 | PCM.PN ---
- General Info Date of Service: 03/27/19 Admission Dx/Problem (Free Text): Admission Diagnosis/Problem Admission Diagnosis/Problem Failure to thrive Subjective Update: I saw and examined the patient at the bedside. No new complaints. No events overnight - Review of Systems General: Reports: Other (ROS limited by dementia) - Patient Data Vitals - Most Recent: Last Vital Signs Temp 36.7 C 03/27/19 08:11 Pulse 63 03/26/19 20:00 Resp 20 03/27/19 08:11 BP 126/49 L 03/27/19 08:11 Pulse Ox 97 03/27/19 08:11 Weight - Most Recent: 107.592 kg Med Orders - Current: Current Medications Albuterol (Proventil Neb Soln) 2.5 mg INH Q4HR PRN PRN Reason: Wheezing Amlodipine Besylate (Norvasc) 10 mg PO BEDTIME [facility] Last Admin: 03/26/19 22:39 Dose: 10 mg Aspirin (Halfprin) 81 mg PO DAILY [facility] Clopidogrel Bisulfate (Plavix) 75 mg PO DAILY [facility] Donepezil HCl (Aricept) 10 mg PO BEDTIME [facility] Last Admin: 03/26/19 22:38 Dose: 10 mg Escitalopram Oxalate (Lexapro) 15 mg PO BEDTIME [facility] Last Admin: 03/26/19 22:41 Dose: 15 mg Furosemide (Lasix) 20 mg PO DAILY [facility] Last Admin: 03/26/19 22:37 Dose: 20 mg Heparin Sodium (Porcine) (Heparin Sodium) 5,000 units SUBCUT Q8H [facility] Last Admin: 03/27/19 06:33 Dose: 5,000 units Losartan Potassium (Cozaar) 100 mg PO DAILY [facility] Memantine (Namenda) 10 mg PO BID [facility] Last Admin: 03/26/19 22:40 Dose: 10 mg Pantoprazole Sodium (Protonix) 40 mg PO ACBRK [facility] Last Admin: 03/27/19 06:33 Dose: 40 mg Risperidone (Risperidal) 0.375 mg PO BEDTIME [facility] Last Admin: 03/26/19 22:40 Dose: 0.375 mg Simvastatin (Zocor) 40 mg PO BEDTIME [facility] Last Admin: 03/26/19 22:40 Dose: 40 mg Sodium Chloride (Saline Flush) 10 ml FLUSH ASDIRECTED PRN PRN Reason: Keep Vein Open Discontinued Medications Heparin Sodium (Porcine) (Heparin Sodium) 5,000 units SUBCUT Q8H [facility] Last Admin: 03/27/19 06:31 Dose: Not Given Hydrochlorothiazide (Hydrochlorothiazide) 25 mg PO DAILY [facility] - Exam General: Other (pleasantly confused) HEENT: Pupils Equal, EOMI Neck: Supple Lungs: Clear to Auscultation Cardiovascular: Regular Rate, Regular Rhythm, Murmurs (systolic murmur 3/6) GI/Abdominal Exam: Normal Bowel Sounds, Soft Extremities: Normal Inspection, Normal Range of Motion - Problem List Review Problem List Initiated/Reviewed/Updated: Yes - My Orders Last 24 Hours: My Active Orders 03/26/19 18:18 Patient Status [ADT] Routine Ambulate [RC] ASDIRECTED Height and Weight [RC] 0600 Peripheral IV Care [RC] , Up With Assistance [RC] ASDIRECTED VTE/DVT Education [RC] PER UNIT ROUTINE Vital Signs [RC] 00,04,08,12,16,20 Sodium Chloride 0.9% [Saline Flush] 10 ml FLUSH ASDIRECTED PRN Peripheral IV Insertion Adult [OM.PC] Routine 03/26/19 18:20 Albuterol [Proventil Neb Soln] 2.5 mg INH Q4HR PRN 03/26/19 18:43 OT Evaluation and Treatment [CONS] Routine PT Evaluation and Treatment [CONS] Routine 03/26/19 18:45 Furosemide [Lasix] 20 mg PO DAILY 03/26/19 21:00 Donepezil [Aricept] 10 mg PO BEDTIME Escitalopram [Lexapro] 15 mg PO BEDTIME Memantine [Namenda] 10 mg PO BID Simvastatin [Zocor] 40 mg PO BEDTIME amLODIPine [Norvasc] 10 mg PO BEDTIME risperiDONE [RisperiDAL] 0.375 mg PO BEDTIME 03/26/19 22:00 Heparin Sodium 5,000 units SUBCUT Q8H 03/26/19 Dinner Regular Diet [DIET] 03/27/19 06:00 Pantoprazole [ProTONIX] 40 mg PO ACBRK 03/27/19 09:00 Aspirin [Halfprin] 81 mg PO DAILY Clopidogrel [Plavix] 75 mg PO DAILY Losartan [Cozaar] 100 mg PO DAILY - Plan Plan:: #Severe dementia #Ambulatory dysfunction needs placement as family cannot take care of her at home PT/OT continue namenda, aricept #CHF, diastolic, chronic #Mitral regurg will start oral lasix fluid restriction salt restriction in diet #HTN continue home BP meds #Hx of CAD continue asa, plavix, statin #Hx of COPD stable, no wheezing PRN albuterol #DVT ppx SC heparin
[2019-03-27] MEDS: Losartan 50 MG Tab PO SCH (10:17)
[2019-03-27] MEDS: Aspirin 81 MG Tab.EC PO SCH (10:18)
[2019-03-27] MEDS: Memantine 10 MG Tab PO SCH ×2 (10:18→22:10)
[2019-03-27] MEDS: Clopidogrel 75 MG Tab PO SCH (10:18)
[2019-03-27] MEDS: Furosemide 20 MG Tab PO SCH (10:18)
[2019-03-27] MEDS: Escitalopram 10 MG Tab PO SCH (22:09)
[2019-03-27] MEDS: Donepezil 10 MG Tab PO SCH (22:09)
[2019-03-27] MEDS: amLODIPine 5 MG Tab PO SCH (22:10)
[2019-03-27] MEDS: risperiDONE 0.5 MG Tab PO SCH (22:10)
[2019-03-27] MEDS: Simvastatin 40 MG Tab PO SCH (22:11)
[2019-03-28] MEDS: Heparin Sodium 5,000 Units/ML Vial SUBCUT SCH ×3 (05:31→22:04)
[2019-03-28] MEDS: Pantoprazole 40 MG Tab.CR PO SCH (05:31)
--- NOTE | 2019-03-28 09:29 | PCM.PN ---
- General Info Date of Service: 03/28/19 Admission Dx/Problem (Free Text): Admission Diagnosis/Problem Admission Diagnosis/Problem Failure to thrive Subjective Update: I saw and examined the patient at the bedside. No new complaints. No events overnight - Review of Systems General: Reports: Other (no ROS due to dementia) - Patient Data Vitals - Most Recent: Last Vital Signs Temp 36.6 C 03/28/19 07:57 Pulse 69 03/28/19 07:57 Resp 20 03/28/19 07:57 BP 138/62 03/28/19 07:57 Pulse Ox 95 03/28/19 07:57 Weight - Most Recent: 104.871 kg Med Orders - Current: Current Medications Albuterol (Proventil Neb Soln) 2.5 mg INH Q4HR PRN PRN Reason: Wheezing Amlodipine Besylate (Norvasc) 10 mg PO BEDTIME [facility] Last Admin: 03/27/19 22:10 Dose: 10 mg Aspirin (Halfprin) 81 mg PO DAILY [facility] Last Admin: 03/27/19 10:18 Dose: 81 mg Clopidogrel Bisulfate (Plavix) 75 mg PO DAILY [facility] Last Admin: 03/27/19 10:18 Dose: 75 mg Donepezil HCl (Aricept) 10 mg PO BEDTIME [facility] Last Admin: 03/27/19 22:09 Dose: 10 mg Escitalopram Oxalate (Lexapro) 15 mg PO BEDTIME [facility] Last Admin: 03/27/19 22:09 Dose: 15 mg Furosemide (Lasix) 20 mg PO DAILY [facility] Last Admin: 03/27/19 10:18 Dose: 20 mg Heparin Sodium (Porcine) (Heparin Sodium) 5,000 units SUBCUT Q8H [facility] Last Admin: 03/28/19 05:31 Dose: 5,000 units Losartan Potassium (Cozaar) 100 mg PO DAILY [facility] Last Admin: 03/27/19 10:17 Dose: 100 mg Memantine (Namenda) 10 mg PO BID [facility] Last Admin: 03/27/19 22:10 Dose: 10 mg Pantoprazole Sodium (Protonix) 40 mg PO ACBRK [facility] Last Admin: 03/28/19 05:31 Dose: 40 mg Risperidone (Risperidal) 0.375 mg PO BEDTIME [facility] Last Admin: 03/27/19 22:10 Dose: 0.375 mg Simvastatin (Zocor) 40 mg PO BEDTIME [facility] Last Admin: 03/27/19 22:11 Dose: 40 mg Sodium Chloride (Saline Flush) 10 ml FLUSH ASDIRECTED PRN PRN Reason: Keep Vein Open Discontinued Medications Heparin Sodium (Porcine) (Heparin Sodium) 5,000 units SUBCUT Q8H [facility] Last Admin: 03/27/19 06:31 Dose: Not Given Hydrochlorothiazide (Hydrochlorothiazide) 25 mg PO DAILY [facility] - Exam General: Alert, Other (pleasantly confused) HEENT: Pupils Equal, Pupils Reactive Neck: Supple Lungs: Clear to Auscultation, Normal Respiratory Effort Cardiovascular: Regular Rate, Regular Rhythm GI/Abdominal Exam: Normal Bowel Sounds, Soft, Non-Tender Extremities: Other (left knee tenderness on passive motion, known osteoarthritis ) - Problem List Review Problem List Initiated/Reviewed/Updated: Yes - My Orders Last 24 Hours: My Active Orders 03/27/19 09:00 Aspirin [Halfprin] 81 mg PO DAILY Clopidogrel [Plavix] 75 mg PO DAILY Losartan [Cozaar] 100 mg PO DAILY 03/27/19 10:02 Code Status [Resuscitation Status] Routine 03/28/19 08:56 BASIC METABOLIC PANEL,BMP [CHEM] Routine CBC WITH AUTO DIFF [HEME] Routine - Plan Plan:: #Severe dementia #Ambulatory dysfunction needs placement as family cannot take care of her at home PT/OT continue namenda, aricept #CHF, diastolic, chronic #Mitral regurg will start oral lasix fluid restriction salt restriction in diet #HTN continue home BP meds #Hx of CAD continue asa, plavix, statin #Hx of COPD stable, no wheezing PRN albuterol #DVT ppx SC heparin
[2019-03-28] MEDS: Losartan 50 MG Tab PO SCH (09:43)
[2019-03-28] MEDS: Memantine 10 MG Tab PO SCH ×2 (09:44→21:57)
[2019-03-28] MEDS: Clopidogrel 75 MG Tab PO SCH (09:44)
[2019-03-28] MEDS: Furosemide 20 MG Tab PO SCH (09:44)
[2019-03-28] MEDS: Aspirin 81 MG Tab.EC PO SCH (09:44)
[2019-03-28] MEDS: Sodium Chloride 0.9% 10 ML Syringe FLUSH PRN ×2 (09:45→22:08)
[2019-03-28 10:22] LABS: ANION GAP 15.7
[2019-03-28] MEDS: Simvastatin 40 MG Tab PO SCH (21:56)
[2019-03-28] MEDS: Escitalopram 10 MG Tab PO SCH (21:56)
[2019-03-28] MEDS: amLODIPine 5 MG Tab PO SCH (21:57)
[2019-03-28] MEDS: Donepezil 10 MG Tab PO SCH (22:00)
[2019-03-28] MEDS: risperiDONE 0.5 MG Tab PO SCH (22:01)
[2019-03-29] MEDS: Pantoprazole 40 MG Tab.CR PO SCH (05:32)
[2019-03-29] MEDS: Heparin Sodium 5,000 Units/ML Vial SUBCUT SCH (05:32)
[2019-03-29] MEDS: Aspirin 81 MG Tab.EC PO SCH (08:40)
[2019-03-29] MEDS: Losartan 50 MG Tab PO SCH (08:40)
[2019-03-29] MEDS: Furosemide 20 MG Tab PO SCH (08:40)
[2019-03-29] MEDS: Clopidogrel 75 MG Tab PO SCH (08:40)
[2019-03-29] MEDS: Memantine 10 MG Tab PO SCH (08:42)
[2019-03-29 08:54] VITALS: BP 143/60
--- NOTE | 2019-03-29 09:24 | PCM.DCSUM1 ---
Discharge Summary - Discharge Data Discharge Disposition: Home, Self-Care 01 Condition: Good - Patient Summary/Data Consults: Consultations 03/26/19 18:43 OT Evaluation and Treatment [CONS] Routine PT Evaluation and Treatment [CONS] Routine - Discharge Plan Home Medications: Home Meds Aspirin [[place] Aspirin EC] 81 mg PO DAILY 04/08/15 [History] Donepezil HCl 10 mg PO BEDTIME 04/08/15 [History] Escitalopram [Lexapro] 15 mg PO BEDTIME 04/08/15 [History] Losartan Potassium [Cozaar] 100 mg PO DAILY 04/08/15 [History] Memantine [Namenda] 10 mg PO BID 04/08/15 [History] risperiDONE [RisperiDAL] 0.75 mg PO BEDTIME 04/08/15 [History] hydroCHLOROthiazide [Hydrochlorothiazide] 25 mg PO DAILY #30 tablet 04/10/15 [Rx ] Clopidogrel [Plavix] 75 mg PO DAILY #30 tablet 07/09/16 [Rx] Pantoprazole Sodium [Protonix] 20 mg PO DAILY 12/14/16 [History] amLODIPine [Norvasc] 10 mg PO BEDTIME 05/12/17 [History] Albuterol Sulfate 2.5 mg NEB Q4HR PRN 03/17/19 [History] Simvastatin [Zocor] 40 mg PO DAILY 03/27/19 [History] - Patient Data Vitals - Most Recent: Last Vital Signs Temp 36.7 C 03/29/19 08:53 Pulse 71 03/29/19 08:53 Resp 20 03/29/19 08:53 BP 143/60 H 03/29/19 08:53 Pulse Ox 96 03/29/19 08:53 Weight - Most Recent: 105.279 kg I&O - Last 24 hours: Intake & Output 03/28/19 03/29/19 03/29/19 22:59 06:59 14:59 Intake Total 525 200 Balance 525 200 Lab Results - Last 24 hrs: Laboratory Results - last 24 hr 03/28/19 03/28/19 Range/Units 09:40 09:40 WBC 9.9 (5.0-10.0) 10^3/uL RBC 4.55 (4.2-5.4) 10^6/uL Hgb 13.4 D (12.0-16.0) g/dL Hct 40.7 (37.0-47.0) % MCV 89.5 (80-100) fL MCH 29.5 (27.0-34.0) pg MCHC 32.9 L (33.0-35.0) g/dL Plt Count 238 (150-450) 10^3/uL Neut % (Auto) 77.1 H (42.2-75.2) % Lymph % (Auto) 12.8 L (20.5-50.1) % [place] % (Auto) 7.2 (2-8) % Eos % (Auto) 2.6 (1.0-3.0) % Baso % (Auto) 0.3 (0.0-1.0) % Sodium 134 L (135-145) mmol/L Potassium 3.7 (3.6-5.0) mmol/L Chloride 95 L (101-111) mmol/L Carbon Dioxide 27.0 (21.0-31.0) mmol/L Anion Gap 15.7 BUN 23 H (7-18) mg/dL Creatinine 1.1 (0.6-1.3) mg/dL Est Cr Clr Drug Dosing 37.12 mL/min Estimated GFR (MDRD) 49 Glucose 162 H (74-105) mg/dL Calcium 9.2 (8.4-10.2) mg/dl Med Orders - Current: Current Medications Albuterol (Proventil Neb Soln) 2.5 mg INH Q4HR PRN PRN Reason: Wheezing Amlodipine Besylate (Norvasc) 10 mg PO BEDTIME [facility] Last Admin: 03/28/19 21:57 Dose: 10 mg Aspirin (Halfprin) 81 mg PO DAILY [facility] Last Admin: 03/29/19 08:40 Dose: 81 mg Clopidogrel Bisulfate (Plavix) 75 mg PO DAILY [facility] Last Admin: 03/29/19 08:40 Dose: 75 mg Donepezil HCl (Aricept) 10 mg PO BEDTIME [facility] Last Admin: 03/28/19 22:00 Dose: 10 mg Escitalopram Oxalate (Lexapro) 15 mg PO BEDTIME [facility] Last Admin: 03/28/19 21:56 Dose: 15 mg Furosemide (Lasix) 20 mg PO DAILY [facility] Last Admin: 03/29/19 08:40 Dose: 20 mg Heparin Sodium (Porcine) (Heparin Sodium) 5,000 units SUBCUT Q8H [facility] Last Admin: 03/29/19 05:32 Dose: 5,000 units Losartan Potassium (Cozaar) 100 mg PO DAILY [facility] Last Admin: 03/29/19 08:40 Dose: 100 mg Memantine (Namenda) 10 mg PO BID [facility] Last Admin: 03/29/19 08:42 Dose: 10 mg Pantoprazole Sodium (Protonix) 40 mg PO ACBRK [facility] Last Admin: 03/29/19 05:32 Dose: 40 mg Risperidone (Risperidal) 0.375 mg PO BEDTIME [facility] Last Admin: 03/28/19 22:01 Dose: 0.375 mg Simvastatin (Zocor) 40 mg PO BEDTIME [facility] Last Admin: 03/28/19 21:56 Dose: 40 mg Sodium Chloride (Saline Flush) 10 ml FLUSH ASDIRECTED PRN PRN Reason: Keep Vein Open Last Admin: 03/28/19 22:08 Dose: 10 ml Discontinued Medications Heparin Sodium (Porcine) (Heparin Sodium) 5,000 units SUBCUT Q8H [facility] Last Admin: 03/27/19 06:31 Dose: Not Given Hydrochlorothiazide (Hydrochlorothiazide) 25 mg PO DAILY [facility]
--- NOTE | 2019-03-29 09:27 | PCM.DCSUM1 ---
Discharge Summary - Hospital Course Free Text/Narrative:: Charito Chatman a 73 y.o.femalewith past medical history significant for severe dementia, depression, anxiety, paranoia, obesity, dyslipidemia, hypertension, GERD, heart failure with preserved ejection fraction(concentric LVH with EF>60%, grade I DD),Mitral regurgitation,diverticulosis, admitted directly from the clinic for failure to thrive, worsening dementia, and weakness needing assistance for mobility. Patient was evaluated by PT OT, and will be discharged to snf in stable condition. Diagnosis: Stroke: No - Discharge Data Discharge Date: 03/29/19 Discharge Disposition: DC/Tfer to SNF 03 Condition: Good - Patient Summary/Data Consults: Consultations 03/26/19 18:43 OT Evaluation and Treatment [CONS] Routine PT Evaluation and Treatment [CONS] Routine - Discharge Plan *PRESCRIPTION DRUG MONITORING PROGRAM REVIEWED*: Not Applicable *COPY OF PRESCRIPTION DRUG MONITORING REPORT IN PATIENT DAIJA: Not Applicable Home Medications: Home Meds Aspirin [[place] Aspirin EC] 81 mg PO DAILY 04/08/15 [History] Donepezil HCl 10 mg PO BEDTIME 04/08/15 [History] Escitalopram [Lexapro] 15 mg PO BEDTIME 04/08/15 [History] Losartan Potassium [Cozaar] 100 mg PO DAILY 04/08/15 [History] Memantine [Namenda] 10 mg PO BID 04/08/15 [History] risperiDONE [RisperiDAL] 0.75 mg PO BEDTIME 04/08/15 [History] hydroCHLOROthiazide [Hydrochlorothiazide] 25 mg PO DAILY #30 tablet 04/10/15 [Rx ] Clopidogrel [Plavix] 75 mg PO DAILY #30 tablet 07/09/16 [Rx] Pantoprazole Sodium [Protonix] 20 mg PO DAILY 12/14/16 [History] amLODIPine [Norvasc] 10 mg PO BEDTIME 05/12/17 [History] Albuterol Sulfate 2.5 mg NEB Q4HR PRN 03/17/19 [History] Simvastatin [Zocor] 40 mg PO DAILY 03/27/19 [History] Oxygen Therapy Mode: Room Air - Discharge Summary/Plan Comment DC Time >30 min.: Yes - General Info Date of Service: 03/29/19 Admission Dx/Problem (Free Text: Admission Diagnosis/Problem Admission Diagnosis/Problem Failure to thrive - Review of Systems Systems Review Comment: Cannot be obtained due to patient's mental status - Patient Data Vitals - Most Recent: Last Vital Signs Temp 36.7 C 03/29/19 08:53 Pulse 71 03/29/19 08:53 Resp 20 03/29/19 08:53 BP 143/60 H 03/29/19 08:53 Pulse Ox 96 03/29/19 08:53 Weight - Most Recent: 105.279 kg I&O - Last 24 hours: Intake & Output 03/28/19 03/29/19 03/29/19 22:59 06:59 14:59 Intake Total 525 200 Balance 525 200 Lab Results - Last 24 hrs: Laboratory Results - last 24 hr 03/28/19 03/28/19 Range/Units 09:40 09:40 WBC 9.9 (5.0-10.0) 10^3/uL RBC 4.55 (4.2-5.4) 10^6/uL Hgb 13.4 D (12.0-16.0) g/dL Hct 40.7 (37.0-47.0) % MCV 89.5 (80-100) fL MCH 29.5 (27.0-34.0) pg MCHC 32.9 L (33.0-35.0) g/dL Plt Count 238 (150-450) 10^3/uL Neut % (Auto) 77.1 H (42.2-75.2) % Lymph % (Auto) 12.8 L (20.5-50.1) % [place] % (Auto) 7.2 (2-8) % Eos % (Auto) 2.6 (1.0-3.0) % Baso % (Auto) 0.3 (0.0-1.0) % Sodium 134 L (135-145) mmol/L Potassium 3.7 (3.6-5.0) mmol/L Chloride 95 L (101-111) mmol/L Carbon Dioxide 27.0 (21.0-31.0) mmol/L Anion Gap 15.7 BUN 23 H (7-18) mg/dL Creatinine 1.1 (0.6-1.3) mg/dL Est Cr Clr Drug Dosing 37.12 mL/min Estimated GFR (MDRD) 49 Glucose 162 H (74-105) mg/dL Calcium 9.2 (8.4-10.2) mg/dl Med Orders - Current: Current Medications Albuterol (Proventil Neb Soln) 2.5 mg INH Q4HR PRN PRN Reason: Wheezing Amlodipine Besylate (Norvasc) 10 mg PO BEDTIME [facility] Last Admin: 03/28/19 21:57 Dose: 10 mg Aspirin (Halfprin) 81 mg PO DAILY [facility] Last Admin: 03/29/19 08:40 Dose: 81 mg Clopidogrel Bisulfate (Plavix) 75 mg PO DAILY [facility] Last Admin: 03/29/19 08:40 Dose: 75 mg Donepezil HCl (Aricept) 10 mg PO BEDTIME [facility] Last Admin: 03/28/19 22:00 Dose: 10 mg Escitalopram Oxalate (Lexapro) 15 mg PO BEDTIME [facility] Last Admin: 03/28/19 21:56 Dose: 15 mg Furosemide (Lasix) 20 mg PO DAILY [facility] Last Admin: 03/29/19 08:40 Dose: 20 mg Heparin Sodium (Porcine) (Heparin Sodium) 5,000 units SUBCUT Q8H [facility] Last Admin: 03/29/19 05:32 Dose: 5,000 units Losartan Potassium (Cozaar) 100 mg PO DAILY [facility] Last Admin: 03/29/19 08:40 Dose: 100 mg Memantine (Namenda) 10 mg PO BID [facility] Last Admin: 03/29/19 08:42 Dose: 10 mg Pantoprazole Sodium (Protonix) 40 mg PO ACBRK [facility] Last Admin: 03/29/19 05:32 Dose: 40 mg Risperidone (Risperidal) 0.375 mg PO BEDTIME [facility] Last Admin: 03/28/19 22:01 Dose: 0.375 mg Simvastatin (Zocor) 40 mg PO BEDTIME [facility] Last Admin: 03/28/19 21:56 Dose: 40 mg Sodium Chloride (Saline Flush) 10 ml FLUSH ASDIRECTED PRN PRN Reason: Keep Vein Open Last Admin: 03/28/19 22:08 Dose: 10 ml Discontinued Medications Heparin Sodium (Porcine) (Heparin Sodium) 5,000 units SUBCUT Q8H [facility] Last Admin: 03/27/19 06:31 Dose: Not Given Hydrochlorothiazide (Hydrochlorothiazide) 25 mg PO DAILY [facility] - Exam General: Reports: Cooperative Neck: Reports: Supple Lungs: Reports: Clear to Auscultation Cardiovascular: Reports: Regular Rate, Regular Rhythm, Murmurs (systolic, heard throughout) GI/Abdominal Exam: Soft, Non-Tender, No Distention Skin: Reports: Warm, Dry Neurological: Reports: No New Focal Deficit
== END 2019-03-29 10:50 ==
LOC: UNDOADMIN 14:54 → DL.MS 14:54 → UNDOADMOB 17:19 → INTOOBSV 17:19 → DL.MS 18:18
PROVIDERS: ADMIT Hospitalist; ATTEND Internal Medicine
DX: F03.90 Unspecified dementia, unspecified severity, without behavioral disturbance, psychotic disturbance, mood disturbance, and anxiety (principal); R62.7 Adult failure to thrive; I10 Essential (primary) hypertension; I50.9 Heart failure, unspecified; E78.5 Hyperlipidemia, unspecified; K21.9 Gastro-esophageal reflux disease without esophagitis; E66.9 Obesity, unspecified; Z68.41 Body mass index [BMI] 40.0-44.9, adult; F41.9 Anxiety disorder, unspecified; F32.9 Major depressive disorder, single episode, unspecified; Z79.02 Long term (current) use of antithrombotics/antiplatelets; Z79.82 Long term (current) use of aspirin; Z79.51 Long term (current) use of inhaled steroids; Z79.899 Other long term (current) drug therapy; Z88.5 Allergy status to narcotic agent
CPT/HCPCS: 36415; 80048; 85025; 97162; 97167; A9270; J1644; 96372; G0378

== ENCOUNTER 2020-11-08 19:58 | Observation (INO) | payer MEDICARE, BC, MEDICAID ==
--- NOTE | 2020-11-08 19:48 | PCM.SN.2 ---
- Free Text/Narrative Note: Deedee Weaver is a 75-year-old resident of [facility]. Nursing staff called earlier in the day to say that she was not eating. She was awake but would not speak with staff, only close her eyes. Vital signs were stable. Lab work was ordered. Only a CBC tube was able to be drawn. Lab called to say that the hemoglobin was 4.9. The shelter tried to obtain another tube, as well as the chemistries, but have been unable. She will be brought to the ER in order to further evaluate her and obtain labs. VS: BP 104/52. HR 60. RR 20. 95% on RA. Temp 98 F. Staff states she appears paler than usual. ROS is othewise unremarkable: She did have some nausea prior to transfer and was given ondansetron 4 mg. No vomiting. Last BM on , 11/06. No cough, fever, dysuria or other complaints. She is tested twice weekly for Covid 19 and has been negative. Impression: unexplained change in status today. Unable to get lab work. First reported hemoglobin was 4.9 in a partially filled tube. Labs need to be repeated. Case discussed with ER provider, MICKEY JENKINS.
[2020-11-08 20:30] LABS: ANION GAP 13.9 mEq/L (7-13)
--- NOTE | 2020-11-08 22:12 | EDM.PDOC ---
ED HPI GENERAL MEDICAL PROBLEM - General Chief Complaint: General Time Seen by Provider: 11/08/20 20:25 Source of Information: Reports: Correction Records, RN, Other (Dr Jiang) History Limitations: Reports: Altered Mental Status (Dementa hx) - History of Present Illness INITIAL COMMENTS - FREE TEXT/NARRATIVE: ED via [place] staff, reported low Hgb today. Eating poorly. No recent fever, Lat COVID test negative, negative screen - Related Data Allergies Allergy/AdvReac Type Severity Reaction Status Date / Time meperidine HCl [From Demerol] Allergy UNKNOWN Verified 11/08/20 20:30 Home Meds: Home Meds Aspirin [[place] Aspirin EC] 81 mg PO DAILY 04/08/15 [History] Donepezil HCl 10 mg PO BEDTIME 04/08/15 [History] Escitalopram [Lexapro] 15 mg PO BEDTIME 04/08/15 [History] Losartan Potassium [Cozaar] 100 mg PO DAILY 04/08/15 [History] Memantine [Namenda] 10 mg PO BID 04/08/15 [History] Pantoprazole Sodium [Protonix] 20 mg PO DAILY 12/14/16 [History] amLODIPine [Norvasc] 10 mg PO DAILY 05/12/17 [History] Acetaminophen 500 mg PO Q8HR PRN 11/08/20 [History] Clopidogrel [Plavix] 75 mg PO DAILY 11/08/20 [History] Ipratropium/Albuterol Sulfate [Iprat-Albut 0.5-3(2.5) mg/3 ml] 3 ml IH Q8HR PRN 11/08/20 [History] Magnesium Hydroxide [Milk of Magnesia] 30 ml PO DAILY PRN 11/08/20 [History] Sodium Phosphate,[place]-Dibasic [Fleet Enema] 118 ml RC DAILY PRN 11/08/20 [History] atorvaSTATin [Lipitor] 10 mg PO BEDTIME 11/08/20 [History] bisacodyL [Dulcolax] 10 mg RC DAILY PRN 11/08/20 [History] hydroCHLOROthiazide [Hydrochlorothiazide] 25 mg PO DAILY 11/08/20 [History] Past Medical History - Past Health History Medical/Surgical History: Denies Medical/Surgical History HEENT History: Reports: Impaired Vision Other HEENT History: wears glasses Cardiovascular History: Reports: Heart Murmur, High Cholesterol, Hypertension Other Cardiovascular History: history of bradycardia Respiratory History: Reports: None Gastrointestinal History: Reports: GERD Other Gastrointestinal History: colonic diverticular disease Genitourinary History: Reports: Urinary Incontinence, UTI, Recurrent CHEMISTRY MANAGER History: Reports: Other CHEMISTRY MANAGER History: 1 NVD Musculoskeletal History: Reports: Arthritis Other Musculoskeletal History: in shoulder Neurological History: Reports: TIA, Other (See Below) Other Neuro History: dementia Psychiatric History: Reports: Anxiety, Dementia, Depression, Psychosis Endocrine/Metabolic History: Reports: Obesity/BMI 30+ Hematologic History: Reports: None Immunologic History: Reports: None Oncologic (Cancer) History: Reports: None - Infectious Disease History Infectious Disease History: Reports: Chicken Pox - Past Surgical History Head Surgeries/Procedures: Reports: None HEENT Surgical History: Reports: Cataract Surgery Other HEENT Surgeries/Procedures: 8-9 years ago Other Cardiovascular Surgeries/Procedures: on Tele GI Surgical History: Reports: Colonoscopy Musculoskeletal Surgical History: Reports: Joint Replacement, Knee Replacement Other Musculoskeletal Surgeries/Procedures:: right knee Social & Family History - Family History Family Medical History: No Pertinent Family History - Tobacco Use Tobacco Use Status *Q: Never Tobacco User Second Hand Smoke Exposure: No - Caffeine Use Caffeine Use: Reports: None - Recreational Drug Use Recreational Drug Use: No - Living Situation & Occupation Living situation: Reports: , Alone Occupation: Retired ED ROS GENERAL - Review of Systems Review Of Systems: See Below Constitutional: Denies: Fever Respiratory: Denies: Cough Cardiovascular: Reports: No Symptoms GI/Abdominal: Reports: Decreased Appetite. Denies: Vomiting : Reports: Incontinence Neurological: Reports: Difficulty Walking ( tx with nieves lift) Psychiatric: Reports: Other (dementia hx family report limited rare verbalization) ED EXAM, GENERAL - Physical Exam Exam: See Below Exam Limited By: No Limitations General Appearance: Alert (hx dementia, non verbal), Obese Eye Exam: Bilateral Eye: EOMI Ears: Normal External Exam Nose: Normal Inspection Throat/Mouth: Normal Inspection Head: Atraumatic, Normocephalic Neck: Normal Inspection Respiratory/Chest: Decreased Breath Sounds Cardiovascular: Regular Rate, Rhythm. No: No Murmur GI/Abdominal: Normal Bowel Sounds, Other (no obvious tenderness with palpation, no grimace or moaning. BS throughout hyperactive. scant stool in rectal vault, black). No: Distended, Guarding Rectal (Female) Exam: Black Stool, Heme + Stool Extremities: Other (stiff) Neurological: Alert, Unresponsive Psychiatric: Flat Affect Skin Exam: Warm, Dry, Pallor Course - Vital Signs Last Recorded V/S: Last Vital Signs Temp 97.2 F 11/09/20 05:20 Pulse 66 11/09/20 05:20 Resp 14 11/09/20 05:20 BP 100/42 L 11/09/20 05:20 Pulse Ox 99 11/09/20 05:20 - Orders/Labs/Meds Orders: Active Orders 24 hr Category Date Time Status Transfuse Red Blood Cells [COMM] Urgent Oth 11/08/20 21:28 Ordered Medication Orders Acetaminophen (Tylenol) 650 mg PO Q4H PRN PRN Reason: Pain (Mild 1-3)/fever Sodium Chloride (Normal Saline) 1,000 mls @ 75 mls/hr IV ASDIRECTED [facility] Last Admin: 11/09/20 01:35 Dose: 75 mls/hr Documented by: AREN Sodium Chloride (Normal Saline) 1,000 mls @ 999 mls/hr IV ASDIRECTED [facility] Last Admin: 11/09/20 00:30 Dose: 999 mls/hr Documented by: AREN Memantine (Namenda) 10 mg PO BID [facility] Morphine Sulfate (Morphine) 2 mg IVPUSH Q2H PRN PRN Reason: Pain (severe 7-10) Ondansetron HCl (Zofran) 4 mg IVPUSH Q4H PRN PRN Reason: Nausea/Vomiting Oxycodone HCl (Oxycodone) 5 mg PO Q4H PRN PRN Reason: Pain (moderate 4-6) Pantoprazole Sodium (Protonix Iv) 40 mg IVPUSH Q12HR [facility] Labs: Laboratory Tests 11/08/20 11/08/20 11/08/20 Range/Units 17:25 20:00 20:50 WBC (5.0-10.0) 10^3/uL RBC (4.2-5.4) 10^6/uL Hgb (12.0-16.0) g/dL Hct (37.0-47.0) % MCV (80-100) fL MCH (27.0-34.0) pg MCHC (33.0-35.0) g/dL Plt Count (150-450) 10^3/uL Neut % (Auto) (42.2-75.2) % Lymph % (Auto) (20.5-50.1) % [place] % (Auto) (2-8) % Eos % (Auto) (1.0-3.0) % Baso % (Auto) (0.0-1.0) % PT (9.0-12.0) SEC INR (0.9-1.2) Sodium 134 L (136-145) mmol/L Potassium 3.9 (3.5-5.1) mmol/L Chloride 99 (98-107) mmol/L Carbon Dioxide 25 (21-32) mmol/L Anion Gap 13.9 H (7-13) mEq/L BUN 57 H (7-18) mg/dL Creatinine 2.41 H (0.55-1.02) mg/dL Est Cr Clr Drug Dosing 16.43 mL/min Estimated GFR (MDRD) 20 BUN/Creatinine Ratio 23.7 (No establ ref range) Glucose 129 H (74-99) mg/dL Calcium 8.9 (8.5-10.1) mg/dL Total Bilirubin 0.5 (0.2-1.0) mg/dL AST 101 H (15-37) U/L ALT 110 H (14-59) U/L Alkaline Phosphatase 81 (46-116) U/L Total Protein 6.8 (6.4-8.2) g/dL Albumin 3.2 L (3.4-5.0) g/dL Globulin 3.6 Albumin/Globulin Ratio 0.89 Urine Color Dark yellow (YELLOW) Urine Appearance Slightly cloudy (CLEAR) Urine pH 5.0 (5.0-9.0) Ur Specific [place] >= 1.030 (1.005-1.030) Urine Protein Negative (NEGATIVE) Urine Glucose (UA) Negative (NEGATIVE) Urine Ketones Negative (NEGATIVE) Urine Occult Blood Negative (NEGATIVE) Urine Nitrite Negative (NEGATIVE) Urine Bilirubin Negative (NEGATIVE) Urine Urobilinogen 0.2 (0.2-1.0) mg/dL Ur Leukocyte Esterase Negative (NEGATIVE) Blood Type A POSITIVE Gel Antibody Screen Negative Crossmatch See Detail 11/08/20 11/08/20 Range/Units 21:00 21:45 WBC 15.8 H (5.0-10.0) 10^3/uL RBC 2.01 L (4.2-5.4) 10^6/uL Hgb 4.7 L* (12.0-16.0) g/dL Hct 15.8 L* (37.0-47.0) % MCV 78.6 L (80-100) fL MCH 23.4 L (27.0-34.0) pg MCHC 29.7 L (33.0-35.0) g/dL Plt Count 330 (150-450) 10^3/uL Neut % (Auto) 82.9 H (42.2-75.2) % Lymph % (Auto) 9.2 L (20.5-50.1) % [place] % (Auto) 7.5 (2-8) % Eos % (Auto) 0.2 L (1.0-3.0) % Baso % (Auto) 0.2 (0.0-1.0) % PT 10.6 (9.0-12.0) SEC INR 1.1 (0.9-1.2) Sodium (136-145) mmol/L Potassium (3.5-5.1) mmol/L Chloride (98-107) mmol/L Carbon Dioxide (21-32) mmol/L Anion Gap (7-13) mEq/L BUN (7-18) mg/dL Creatinine (0.55-1.02) mg/dL Est Cr Clr Drug Dosing mL/min Estimated GFR (MDRD) BUN/Creatinine Ratio (No establ ref range) Glucose (74-99) mg/dL Calcium (8.5-10.1) mg/dL Total Bilirubin (0.2-1.0) mg/dL AST (15-37) U/L ALT (14-59) U/L Alkaline Phosphatase (46-116) U/L Total Protein (6.4-8.2) g/dL Albumin (3.4-5.0) g/dL Globulin Albumin/Globulin Ratio Urine Color (YELLOW) Urine Appearance (CLEAR) Urine pH (5.0-9.0) Ur Specific [place] (1.005-1.030) Urine Protein (NEGATIVE) Urine Glucose (UA) (NEGATIVE) Urine Ketones (NEGATIVE) Urine Occult Blood (NEGATIVE) Urine Nitrite (NEGATIVE) Urine Bilirubin (NEGATIVE) Urine Urobilinogen (0.2-1.0) mg/dL Ur Leukocyte Esterase (NEGATIVE) Blood Type Gel Antibody Screen Crossmatch Meds: Medications Generic Name Dose Route Start Last Admin Trade Name Freq PRN Reason Stop Dose Admin Acetaminophen 650 mg 11/08/20 22:38 Tylenol PO Q4H PRN Pain (Mild 1-3)/fever Sodium Chloride 1,000 mls @ 75 mls/hr 11/08/20 23:15 11/09/20 01:35 Normal Saline IV 75 mls/hr ASDIRECTED [facility] Administration Sodium Chloride 1,000 mls @ 999 mls/hr 11/09/20 00:30 11/09/20 00:30 Normal Saline IV 999 mls/hr ASDIRECTED [facility] Administration Memantine 10 mg 11/09/20 09:00 Namenda PO BID [facility] Morphine Sulfate 2 mg 11/08/20 22:38 Morphine IVPUSH Q2H PRN Pain (severe 7-10) Ondansetron HCl 4 mg 11/08/20 22:38 Zofran IVPUSH Q4H PRN Nausea/Vomiting Oxycodone HCl 5 mg 11/08/20 22:38 Oxycodone PO Q4H PRN Pain (moderate 4-6) Pantoprazole Sodium 40 mg 11/09/20 09:00 Protonix Iv IVPUSH Q12HR [facility] Discontinued Medications Generic Name Dose Route Start Last Admin Trade Name Markosq PRN Reason Stop Dose Admin Sodium Chloride 1,000 mls @ 500 mls/hr 11/08/20 23:09 11/08/20 23:10 Normal Saline IV 11/09/20 01:08 500 mls/hr ASDIRECTED ONE Administration - Re-Assessments/Exams Free Text/Narrative Re-Assessment/Exam: 11/08/20 22:10 Conversation with son Mukesh, agree to transfusion. TC conversation with family Amelia and Mukesh. No aggressive measures. They do ask to be at bed side if patient declines and that patient be given last rights if prognosis is declining. Departure - Departure Time of Disposition: 23:55 Disposition: Refer to Observation Condition: Good Clinical Impression: Hx-TIA (transient ischemic attack), Chronic anticoagulation GI bleed Qualifiers: GI bleed type/associated pathology: melena Qualified Code(s): K92.1 - Melena Anemia Qualifiers: Anemia type: unspecified type Qualified Code(s): D64.9 - Anemia, unspecified Dementia Qualifiers: Dementia type: Alzheimer's disease Alzheimer's disease onset: unspecified onset Dementia behavioral disturbance: without behavioral disturbance Qualified Code(s): G30.9 - Alzheimer's disease, unspecified - Discharge Information *PRESCRIPTION DRUG MONITORING PROGRAM REVIEWED*: No *COPY OF PRESCRIPTION DRUG MONITORING REPORT IN PATIENT DAIJA: No Sepsis Event Note (ED) - Evaluation Sepsis Screening Result: No Definite Risk - Focused Exam Vital Signs: Vital Signs Temp Pulse Resp BP Pulse Ox 11/08/20 20:17 97.7 F 82 20 144/51 H 85 L - My Orders Last 24 Hours: My Active Orders 11/08/20 21:28 Transfuse Red Blood Cells [COMM] Urgent - Assessment/Plan Last 24 Hours: My Active Orders 11/08/20 21:28 Transfuse Red Blood Cells [COMM] Urgent
[2020-11-08] MEDS ORDERED: Acetaminophen 325 MG Tab PO PRN (22:38)
[2020-11-08] MEDS ORDERED: oxyCODONE 5 MG Tab PO PRN (22:38)
[2020-11-08] MEDS ORDERED: Morphine 2 MG/ML SYRINGE IVPUSH PRN (22:38)
[2020-11-08] MEDS ORDERED: Ondansetron 4 MG/2 ML SDV IVPUSH PRN (22:38)
[2020-11-08] MEDS ORDERED: Sodium Chloride 0.9% 1,000 ML IV SCH (22:45)
[2020-11-08] MEDS ORDERED: Sodium Chloride 0.9% 1,000 ML IV ONE (23:09)
[2020-11-09] MEDS ORDERED: Sodium Chloride 0.9% 1,000 ML IV SCH (00:30)
[2020-11-09] MEDS: Sodium Chloride 0.9% 1,000 ML IV SCH ×2 (01:35→10:31)
--- NOTE | 2020-11-09 02:46 | HP ---
CHIEF COMPLAINT: Not eating. HISTORY OF PRESENT ILLNESS: The patient is a 75-year-old lady who was admitted through the emergency room because the patient was noted in the [facility] not to be eating and just not herself. Because of this, lab workup was ordered by Dr. Jiang and hemoglobin was 4.7, and since the lab workup is incomplete, she was sent to the emergency room for further evaluation, and again her hemoglobin is 4.7 and she has Hemoccult-positive stools. Because of this, she was then admitted for further evaluation and management. PAST MEDICAL HISTORY: Remarkable for Alzheimer's dementia. She has history of hypertension, colonic diverticulosis, gastroesophageal reflux, History of TIA. FAMILY HISTORY: Noncontributory. SOCIAL HISTORY: She is a . She is a resident of the [facility]. She is a nonsmoker, non-alcohol drinker. REVIEW OF SYSTEMS: Not obtained from the patient. There are no notes from the [facility], but patient did not have any fever or any other complaints. HOME MEDICATIONS: Aspirin 81 mg daily, donepezil 10 mg at bedtime, Lexapro 15 mg at bedtime, losartan 100 mg daily, Namenda 10 mg b.i.d., pantoprazole 20 mg daily, amlodipine 10 mg daily, Plavix 75 mg daily, Lipitor 10 mg at bedtime, hydrochlorothiazide 25 mg daily. ALLERGIES: Demerol. PHYSICAL EXAMINATION: General: The patient is alert, but nonverbal. She is obese. Vital Signs: Blood pressure is 144/51, pulse of 82, respirations of 20, temperature of 97.7, oxygen saturation is 85%. HEENT: Normocephalic. There are pale palpebral conjunctivae. Sclerae anicteric. No JVD. No lymphadenopathy. Heart: Regular rate and rhythm. No gallops. No rubs. Lungs: Decreased breath sounds in both bases, but no crackles, no wheezing. Abdomen: Obese, soft, nontender. Bowel sounds hyperactive and there is some black stool in the rectal vault, which is positive for Hemoccult. Extremities: Negative for any pedal edema. No calf tenderness. LABORATORY DATA: CBC: WBC is 15.8, hemoglobin is 4.7, hematocrit is 15.8, platelets are 330. Comp panel: Sodium is 134, potassium is 3.9, anion gap of 13.9, BUN is 57, creatinine is 2.41, glucose 129, AST is 101, ALT is 110. The rest of the panel unremarkable. Urinalysis unremarkable. Protime INR is 1.1. ADMITTING DIAGNOSES: 1. Gastrointestinal bleeding. 2. Symptomatic anemia. 3. Dementia. 4. Hypertension. 5. History of transient ischemic attack. 6. Gastroesophageal reflux. TREATMENT PLAN: The patient is going to be admitted to observation, General Medicine floor, and she will be transfused with packed RBC and we are also going to hold her aspirin as well as Plavix as well as Aricept. The patient's code level status is comfort measures, and I have talked to her son, Carlos Eduardo, and he basically mentioned about just to keep her comfortable and no heroic measures. The patient's prognosis is guarded. [facility] /[id number]
[2020-11-09 07:16] LABS: ANION GAP 14.8 mEq/L (7-13)
[2020-11-09] MEDS ORDERED: Furosemide 40 MG/4 ML VIAL IVPUSH ONE ×2 (09:10→14:35)
[2020-11-09] MEDS: Pantoprazole 40 MG Vial IVPUSH SCH ×2 (10:21→20:39)
--- NOTE | 2020-11-09 14:13 | PN ---
DATE: 11/09/2020 SUBJECTIVE: The patient this morning is still nonverbal, but looks comfortable. LABORATORY DATA: Lab workup this morning, CBC; WBC is 13.5, hemoglobin is 7, hematocrit is 22.1, platelets 254. Comp panel; anion gap is 14.8, BUN of 62, creatinine is 2.26, glucose is 134, calcium of 8.2, AST of 64, ALT of 91, total protein of 5.6, albumin is 2.8. OBJECTIVE: Vital Signs: Blood pressure is 108/43, pulse of 69, respirations of 18, temperature of 98.2, and saturation is 98% on 4 L of oxygen. Heart: Regular rate and rhythm. Lungs: Coarse breath sounds bilaterally. No wheezing. Abdomen: Obese, soft, nontender. Extremities: Negative for any calf tenderness. There is trace bilateral pedal edema. MEDICATIONS: Reviewed. PLAN: We will give her 2 more units of packed RBC and we will give her Lasix 40 mg IV x1 and we will discontinue her IV fluids. We will continue with IV Protonix and we will recheck CBC and basic metabolic panel in a.m. [facility] /[id number]
[2020-11-09] MEDS: Memantine 10 MG Tab PO SCH ×2 (14:47→20:39)
[2020-11-10 06:41] LABS: ANION GAP 15.1 mEq/L (7-13)
[2020-11-10 07:46] VITALS: BP 122/48; PULSE 59
--- NOTE | 2020-11-10 08:07 | CR ---
PROCEDURE INFORMATION: Exam: XR Chest, 1 View Exam date and time: 11/10/2020 7:52 AM Age: 75 years old Clinical indication: Chest congestion TECHNIQUE: Imaging protocol: XR of the chest Views: 1 view. COMPARISON: CR Chest 1V Frontal 03/17/2019 4:42 PM FINDINGS: Lungs: There is bilateral central bronchial wall thickening and haziness. No septal line formation or fissural thickening. No focal peripheral lung consolidation, air bronchogram formation, or silhouette sign. Pleural space: Small left pleural effusion. No right pleural effusion. No pneumothorax. Heart/Mediastinum: The cardiac silhouette is enlarged. The mediastinal contours are normal. Bones/joints: There are multilevel bridging osteophytes in the spine. Bilateral glenohumeral joint degeneration. Chronic left rotator cuff tear. IMPRESSION: 1. Bilateral central bronchial inflammation/edema. 2. Small left pleural effusion.
[2020-11-10] MEDS: Pantoprazole 40 MG Vial IVPUSH SCH (08:31)
[2020-11-10] MEDS: Memantine 10 MG Tab PO SCH (08:31)
[2020-11-10] MEDS ORDERED: Moxifloxacin 0.5% Ophth Soln 3 ML Bottle EYEBOTH SCH (09:00)
[2020-11-10] MEDS ORDERED: Potassium Chloride 10 MEQ Tab.ER PO ONE (10:00)
--- NOTE | 2020-11-10 13:18 | PN ---
DATE: 11/10/2020 SUBJECTIVE: Patient is doing well and she is back to baseline and patient is more verbal and responding to questions. The patient denies any chest pain or abdominal pain nor any other complaints. LABORATORY DATA: Lab workup this morning; WBC is 13.5, hemoglobin is 10.2, hematocrit is 30.7, platelet is 243, neutrophils is 88.5. Comp panel: Potassium is 3.1, anion gap of 15.1, BUN is 48, creatinine is 1.56 (improving), glucose is 144, calcium 8.4, total bilirubin of 1.1, and ALT is 71 (improving). Total protein is 5.9, globulin is 3. A chest x-ray showed bilateral central bronchial inflammatory edema and small left pleural effusion. OBJECTIVE: Vital Signs: Blood pressure is 122/48, pulse of 59, respirations 16, temperature of 98.2, and saturation is 97% on 2 L per nasal cannula. Heart: Regular rate and rhythm. Lungs: Coarse breath sounds bilaterally, but no significant crackles, no wheezing. Abdomen: Obese, soft, nontender. Bowel sounds positive. Extremities: Negative for any pedal edema. No calf tenderness. PLAN: We will discharge the patient back to [facility] today, and I have talked to the patient's son, Carlos Eduardo Weaver, and he is agreeable to the plan. We will discontinue patient's antiplatelets (blood thinner) that is aspirin and Plavix. We will also put the patient on ferrous sulfate for iron supplementation, and we will put the patient on Augmentin for bronchitis symptoms, and we will resume her previous assisted medication. [facility] /[id number]
--- NOTE | 2020-11-10 14:19 | DISCH ---
FINAL DIAGNOSES: 1. Gastrointestinal bleeding. 2. Hypotension. 3. Symptomatic anemia. 4. Conjunctivitis. 5. Bronchitis/pneumonitis. 6. Dementia. 7. History of hypertension. 8. History of transient ischemic attack. 9. Gastroesophageal reflux. BRIEF HISTORY OF PRESENT ILLNESS: The patient is a 75-year-old lady who was admitted through the emergency room because the patient was noted to be not eating and just not herself with a hemoglobin of 4.7 and signs of GI bleeding. PERTINENT LAB X-RAY AND OTHER TESTS: CBC on admission, WBC is 15.8, hemoglobin is 4.7, hematocrit is 15.8, and platelets 330. Sodium is 134, potassium is 3.9, BUN is 57, creatinine of 2.41, glucose is 129, AST of 101. INR is 1.1. Chest x-ray on November 10, 2020, showed bilateral central bronchial inflammation/edema with small left pleural effusion. HOSPITAL COURSE: The patient was admitted to General Medicine floor and she was given IV fluids to increase her blood pressure and was also given a total of 4 units of packed RBC. During the hospitalization, the patient's urine output was not measured correctly because of the patient's incontinence, so a Fabian catheter was inserted. There were some signs of the patient getting chest congestion and the patient was given IV Lasix and she had a good urine output with it. The patient's mental status slowly improved and she is back to her baseline. Followup lab workup on November 10, 2020, WBC was 13.5, hemoglobin is now 10.2, hematocrit is 30.7, and platelet is 243. Comp panel; potassium is 3.1, glucose is 144, total bilirubin of 1.1, AST is 27, ALT of 71. The patient was subsequently discharged. The patient was given potassium 40 mEq p.o. x1 prior to discharge and she will be discharged back to the [facility], and she will be continued on iron supplementation. She will be started on Augmentin 875 mg b.i.d. for the next 1 week because of bronchitis and pneumonitis symptoms, and she will be resumed on the rest of her home medication except for aspirin, Plavix, and Aricept, and she is going to follow up with me in 7 to 10 days with a recheck of CBC and basic metabolic panel. CONDITION ON DISCHARGE: Improved. [facility] /[id number]
== END 2020-11-10 13:00 ==
LOC: DL.ED 19:58 → DL.MS 22:01
PROVIDERS: ADMIT Internal Medicine; ATTEND Internal Medicine
DX: K92.2 Gastrointestinal hemorrhage, unspecified (principal); I95.9 Hypotension, unspecified; H10.9 Unspecified conjunctivitis; D64.9 Anemia, unspecified; J40 Bronchitis, not specified as acute or chronic; J18.9 Pneumonia, unspecified organism; Z20.828 Contact with and (suspected) exposure to other viral communicable diseases; K21.9 Gastro-esophageal reflux disease without esophagitis; Z86.73 Personal history of transient ischemic attack (TIA), and cerebral infarction without residual deficits; Z88.8 Allergy status to other drugs, medicaments and biological substances; E66.9 Obesity, unspecified; G30.9 Alzheimer's disease, unspecified; F02.80 Dementia in other diseases classified elsewhere, unspecified severity, without behavioral disturbance, psychotic disturbance, mood disturbance, and anxiety; Z68.41 Body mass index [BMI] 40.0-44.9, adult
CPT/HCPCS: 36415; 36430; 51702; 71045; 80053; 81003; 82272; 85025; 85610; 86850; 86900; 86901; 86920; 86922; 96374; 96375; 96376; 99217; 99219; 99224; 99284; A9270; C9113; G0378; J1940; J7030; P9016; U0002

== ENCOUNTER 2024-08-18 13:23 | Emergency (ER) | payer MEDICARE, BC, MEDICAID ==
[2024-08-18 14:57] LABS: CORONAVIRUS COVID-19 NAA NEGATIVE (NEGATIVE); INFLUENZA A NAA NEGATIVE (NEGATIVE); INFLUENZA B NAA NEGATIVE (NEGATIVE)
[2024-08-18 15:12] LABS: APPEARANCE,URINE TURBID (CLEAR); BILIRUBIN,URINE NEGATIVE (NEGATIVE); COLOR,URINE YELLOW (YELLOW); GLUCOSE,URINE NEGATIVE (NEGATIVE); KETONES,URINE NEGATIVE (NEGATIVE); LEUKOCYTE ESTERASE,URINE LARGE (NEGATIVE); NITRITE,URINE POSITIVE (NEGATIVE); OCCULT BLOOD,URINE SMALL (NEGATIVE); PROTEIN,URINE 100 (NEGATIVE); UROBILINOGEN,URINE 0.2 mg/dL (0.2-1.0)
[2024-08-18 15:32] LABS: BACTERIA,URINE MODERATE /HPF (0-FEW/HPF); EPITHELIAL CELLS,URINE FEW /HPF (NOT SEEN); MUCUS,URINE FEW /LPF (NOT SEEN); WBC,URINE PACKED /HPF (0-5/HPF)
[2024-08-18] MEDS: cefTRIAXone 500 MG Vial IM ONE (15:51)
[2024-08-18] MEDS: Sodium Chloride 0.9% 1,000 ML IV ONE (16:30)
[2024-08-18 16:51] LABS: BASOPHILS PERCENT AUTO 0.2 % (0.0-1.0); EOSINOPHILS PERCENT AUTO 0.3 % (1.0-3.0); HEMATOCRIT 41.5 % (37.0-47.0); HEMOGLOBIN 13.4 g/dL (12.0-16.0); LYMPHOCYTES PERCENT AUTO 15.2 % (20.5-50.1); MEAN CORPUSCULAR HEMOGLOBIN 30.1 pg (27.0-34.0); MEAN CORPUSCULAR HGB CONC 32.3 g/dL (33.0-35.0); MEAN CORPUSCULAR VOLUME 93.3 fL (80-100); MONOCYTES PERCENT AUTO 4.1 % (2-8); NEUTROPHILS PERCENT AUTO 80.2 % (42.2-75.2); PLATELET COUNT,PLT 228 10^3/uL (150-450); RED BLOOD CELL COUNT 4.45 10^6/uL (4.2-5.4)
[2024-08-18] MEDS: Sodium Chloride 0.9% 10 ML Syringe FLUSH PRN (16:58)
[2024-08-18 17:14] LABS: ANION GAP 8.8 mEq/L (7-13); BLOOD UREA NITROGEN,BUN 24 mg/dL (7-18); CALCIUM 10.1 mg/dL (8.5-10.1); CARBON DIOXIDE,CO2 31 mmol/L (21-32); CHLORIDE,CL 104 mmol/L (98-107); CREATININE 1.25 mg/dL (0.55-1.02); ESTIMATED GFR 44 mL/min (>=60); GLUCOSE RANDOM 129 mg/dL (70-99); POTASSIUM,K 4.8 mmol/L (3.5-5.1); SODIUM,NA 139 mmol/L (136-145)
[2024-08-18 17:31] VITALS: BP 135/78; PULSE 59
[2024-08-18] MEDS: Take Home: Cephalexin 500 MG Cap, 6 Cap Pack PO ONE (18:15)
== END 2024-08-18 18:25 | disposition home or self-care (01) ==
LOC: DL.ED 13:23
DX: N30.01 Acute cystitis with hematuria (principal); I10 Essential (primary) hypertension; E78.00 Pure hypercholesterolemia, unspecified; E66.9 Obesity, unspecified; Z79.899 Other long term (current) drug therapy; Z88.8 Allergy status to other drugs, medicaments and biological substances
CPT/HCPCS: 0240U; 36415; 80048; 81001; 82947; 84484; 85025; 87086; 93005; 96360; 96372; 99285; A9270; J0696; J7030; 87088; 87186; 93010; 99284; J3490

== ENCOUNTER 2025-07-26 18:32 | Inpatient (IN) | payer MEDICARE, BC, MEDICAID ==
[2025-07-26] MEDS ORDERED: Sodium Chloride 0.9% 10 ML Syringe FLUSH PRN (18:45)
[2025-07-26 18:54] LABS: BASOPHILS PERCENT AUTO 0.1 % (0.0-1.0); EOSINOPHILS PERCENT AUTO 0.1 % (1.0-3.0); LYMPHOCYTES PERCENT AUTO 12.9 % (20.5-50.1); MONOCYTES PERCENT AUTO 12.6 % (2-8); NEUTROPHILS PERCENT AUTO 74.3 % (42.2-75.2); PLATELET COUNT,PLT 182 10^3/uL (150-450); RED BLOOD CELL COUNT 4.04 10^6/uL (4.2-5.4); WHITE BLOOD CELL COUNT,WBC 11.0 10^3/uL (5.0-10.0)
[2025-07-26 19:18] LABS: ALANINE AMINOTRANSFERASE,ALT 16 U/L (14-59); ASPARTATE AMNIOTRANSFERASE,AST 16 U/L (15-37); BILIRUBIN TOTAL 0.5 mg/dL (0.2-1.0); BLOOD UREA NITROGEN,BUN 35 mg/dL (7-18); CARBON DIOXIDE,CO2 28 mmol/L (21-32); CHLORIDE,CL 109 mmol/L (98-107); CREATININE 1.25 mg/dL (0.55-1.02); GLUCOSE RANDOM 138 mg/dL (70-99); POTASSIUM,K 4.1 mmol/L (3.5-5.1); PROTEIN TOTAL,TP 7.5 g/dL (6.4-8.2); SODIUM,NA 145 mmol/L (136-145)
[2025-07-26 19:19] LABS: A/G RATIO 0.56; ESTIMATED GFR 44 mL/min (>=60)
[2025-07-26 19:21] LABS: LACTIC ACID 1.3 mmol/L (0.4-2.0)
[2025-07-26] MEDS ORDERED: Nystatin Topical Powder 60 GM Bottle TOP PRN (22:04)
[2025-07-26] MEDS ORDERED: Metoprolol Tartrate 5 MG/5 ML SDV IVPUSH PRN (22:26)
[2025-07-26] MEDS ORDERED: hydrALAZINE 20 MG/ML SDV IVPUSH PRN (22:26)
[2025-07-26] MEDS ORDERED: guaiFENesin/Dextromethorphan 100-10 MG/5 ML Soln 5 ML Cup PO PRN (22:27)
[2025-07-26] MEDS ORDERED: Ondansetron 4 MG/2 ML SDV IVPUSH PRN (22:34)
[2025-07-26] MEDS ORDERED: Magnesium Hydroxide 400 MG/5 ML Susp 30 ML Cup PO PRN (22:34)
[2025-07-26] MEDS ORDERED: Sennosides/Docusate Sodium 50-8.6 MG Tab PO PRN (22:34)
[2025-07-26] MEDS: Dexamethasone 4 MG/ML SDV IVPUSH ONE (23:14)
[2025-07-26] MEDS: Furosemide 20 MG/2 ML VIAL IVPUSH ONE (23:14)
[2025-07-27] MEDS ORDERED: Ampicillin/Sulbactam Na 1.5 GM in Sodium Chloride 0.9% 100 ML IV ONE
[2025-07-27] MEDS: Ampicillin/Sulbactam Na 1.5 GM in Sodium Chloride 0.9% 100 ML IV SCH (00:43)
[2025-07-27 06:29] LABS: BASOPHILS PERCENT AUTO 0.0 % (0.0-1.0); EOSINOPHILS PERCENT AUTO 0.0 % (1.0-3.0); LYMPHOCYTES PERCENT AUTO 3.9 % (20.5-50.1); MONOCYTES PERCENT AUTO 4.8 % (2-8); NEUTROPHILS PERCENT AUTO 91.3 % (42.2-75.2); PLATELET COUNT,PLT 183 10^3/uL (150-450); RED BLOOD CELL COUNT 3.75 10^6/uL (4.2-5.4); WHITE BLOOD CELL COUNT,WBC 10.4 10^3/uL (5.0-10.0)
[2025-07-27] MEDS: Tiotropium Bromide 4 GM Inhalation Spray (2.5mcg/1 dose; 10 doses) INH SCH (06:32)
[2025-07-27] MEDS: Formoterol/Mometasone 100-5 MCG 8.8 GM Inhaler INH SCH (06:33)
[2025-07-27 07:07] LABS: ALANINE AMINOTRANSFERASE,ALT 16.0 U/L (14-59); ASPARTATE AMNIOTRANSFERASE,AST 15.0 U/L (15-37); BILIRUBIN TOTAL 0.3 mg/dL (0.2-1.0); BLOOD UREA NITROGEN,BUN 30.0 mg/dL (7-18); CARBON DIOXIDE,CO2 31.0 mmol/L (21-32); CHLORIDE,CL 111.0 mmol/L (98-107); CREATININE 1.21 mg/dL (0.55-1.02); EST CRCL DRUG DOSING (CG) 29.33 mL/min; GLUCOSE RANDOM 176.0 mg/dL (70-99); POTASSIUM,K 3.9 mmol/L (3.5-5.1); PROTEIN TOTAL,TP 7.1 g/dL (6.4-8.2); SODIUM,NA 148.0 mmol/L (136-145)
[2025-07-27 07:10] LABS: A/G RATIO 0.48; ESTIMATED GFR 45.0 mL/min (>=60)
[2025-07-27] MEDS: Saccharomyces Boulardii (Probiotic) 250 MG Cap PO SCH (09:39)
[2025-07-27] MEDS ORDERED: guaiFENesin 100 MG/5 ML Soln 5 ML UD Cup PO PRN (10:06)
[2025-07-27] MEDS: methylPREDNISolone Sodium Succinate 40 MG/1 ML SDV IVPUSH ONE (11:08)
[2025-07-27] MEDS: Furosemide 20 MG/2 ML VIAL IVPUSH SCH (11:11)
[2025-07-27] MEDS: Meropenem 1 GM SDV IVPUSH ONE (12:36)
[2025-07-27] MEDS: guaiFENesin 100 MG/5 ML Soln 5 ML UD Cup PO SCH (12:55)
[2025-07-27] MEDS: methylPREDNISolone Sodium Succinate 40 MG/1 ML SDV IVPUSH SCH (21:01)
[2025-07-27] MEDS: Meropenem 1 GM SDV IVPUSH SCH (21:08)
[2025-07-28 06:46] LABS: PLATELET COUNT,PLT 200 10^3/uL (150-450); RED BLOOD CELL COUNT 3.66 10^6/uL (4.2-5.4); WHITE BLOOD CELL COUNT,WBC 10.4 10^3/uL (5.0-10.0)
[2025-07-28 07:14] LABS: ALANINE AMINOTRANSFERASE,ALT 17.0 U/L (14-59); ASPARTATE AMNIOTRANSFERASE,AST 10.0 U/L (15-37); BILIRUBIN TOTAL 0.3 mg/dL (0.2-1.0); BLOOD UREA NITROGEN,BUN 39.0 mg/dL (7-18); CARBON DIOXIDE,CO2 31.0 mmol/L (21-32); CHLORIDE,CL 108.0 mmol/L (98-107); CREATININE 1.19 mg/dL (0.55-1.02); EST CRCL DRUG DOSING (CG) 29.82 mL/min; GLUCOSE RANDOM 207.0 mg/dL (70-99); POTASSIUM,K 3.7 mmol/L (3.5-5.1); PROTEIN TOTAL,TP 7.0 g/dL (6.4-8.2); SODIUM,NA 147.0 mmol/L (136-145)
[2025-07-28 07:24] LABS: EOSINOPHILS PERCENT AUTO 0.0 % (1.0-3.0); LYMPHOCYTES PERCENT AUTO 4.7 % (20.5-50.1); MONOCYTES PERCENT AUTO 3.6 % (2-8); NEUTROPHILS PERCENT AUTO 91.7 % (42.2-75.2)
[2025-07-28 07:25] LABS: BASOPHILS PERCENT AUTO 0.0 % (0.0-1.0)
[2025-07-28 07:32] LABS: A/G RATIO 0.49; ESTIMATED GFR 46.0 mL/min (>=60)
[2025-07-28 09:22] LABS: SEG NEUTROPHILS PERCENT MAN 88 % (42-75)
[2025-07-28 09:23] LABS: BAND PERCENT MAN 3 %; LYMPHOCYTES PERCENT MAN 5 % (20-50); MONOCYTES PERCENT MAN 4 % (2-8)
[2025-07-28] MEDS: Potassium Chloride 10% 20 MEQ/15 ML Soln 15 ML UD Cup PO ONE (15:04)
[2025-07-29 06:47] LABS: BASOPHILS PERCENT AUTO 0.0 % (0.0-1.0); EOSINOPHILS PERCENT AUTO 0.0 % (1.0-3.0); LYMPHOCYTES PERCENT AUTO 4.9 % (20.5-50.1); MONOCYTES PERCENT AUTO 3.6 % (2-8); NEUTROPHILS PERCENT AUTO 91.5 % (42.2-75.2); PLATELET COUNT,PLT 199 10^3/uL (150-450); RED BLOOD CELL COUNT 3.69 10^6/uL (4.2-5.4); WHITE BLOOD CELL COUNT,WBC 13.0 10^3/uL (5.0-10.0)
[2025-07-29 07:27] LABS: ALANINE AMINOTRANSFERASE,ALT 21.0 U/L (14-59); ASPARTATE AMNIOTRANSFERASE,AST 17.0 U/L (15-37); BILIRUBIN TOTAL 0.3 mg/dL (0.2-1.0); BLOOD UREA NITROGEN,BUN 48.0 mg/dL (7-18); CARBON DIOXIDE,CO2 28.0 mmol/L (21-32); CHLORIDE,CL 103.0 mmol/L (98-107); CREATININE 1.12 mg/dL (0.55-1.02); EST CRCL DRUG DOSING (CG) 31.68 mL/min; GLUCOSE RANDOM 178.0 mg/dL (70-99); POTASSIUM,K 4.4 mmol/L (3.5-5.1); PROTEIN TOTAL,TP 6.8 g/dL (6.4-8.2); SODIUM,NA 140.0 mmol/L (136-145)
[2025-07-29 07:28] LABS: A/G RATIO 0.51; ESTIMATED GFR 50.0 mL/min (>=60)
[2025-07-29] MEDS: Non-Formulary Medication 1 Each (Arginine/Ascorbate Sod/Vite Ac [Arginaid Powder] 1 EACH P PO SCH (17:55)
[2025-07-30 06:38] LABS: BASOPHILS PERCENT AUTO 0.1 % (0.0-1.0); EOSINOPHILS PERCENT AUTO 0.0 % (1.0-3.0); LYMPHOCYTES PERCENT AUTO 7.6 % (20.5-50.1); MONOCYTES PERCENT AUTO 6.8 % (2-8); NEUTROPHILS PERCENT AUTO 85.5 % (42.2-75.2); PLATELET COUNT,PLT 247 10^3/uL (150-450); RED BLOOD CELL COUNT 3.86 10^6/uL (4.2-5.4); WHITE BLOOD CELL COUNT,WBC 14.5 10^3/uL (5.0-10.0)
[2025-07-30 06:51] LABS: BLOOD UREA NITROGEN,BUN 48.0 mg/dL (7-18); CARBON DIOXIDE,CO2 31.0 mmol/L (21-32); CHLORIDE,CL 106.0 mmol/L (98-107); CREATININE 1.18 mg/dL (0.55-1.02); EST CRCL DRUG DOSING (CG) 30.07 mL/min; GLUCOSE RANDOM 139.0 mg/dL (70-99); POTASSIUM,K 4.4 mmol/L (3.5-5.1); SODIUM,NA 142.0 mmol/L (136-145)
[2025-07-30 07:00] LABS: ESTIMATED GFR 47.0 mL/min (>=60)
[2025-07-31 13:11] VITALS: BP 135/46; PULSE 64
== END 2025-07-31 11:09 | DRG 177 ==
LOC: DL.ED 18:32 → DL.MS 21:15
PROVIDERS: ADMIT Internal Medicine; ATTEND Internal Medicine
DX: J69.0 Pneumonitis due to inhalation of food and vomit (principal); I10 Essential (primary) hypertension; J96.01 Acute respiratory failure with hypoxia; F02.84 Dementia in other diseases classified elsewhere, unspecified severity, with anxiety; N17.9 Acute kidney failure, unspecified; I50.32 Chronic diastolic (congestive) heart failure; E87.0 Hyperosmolality and hypernatremia; Z66 Do not resuscitate; E78.5 Hyperlipidemia, unspecified; E66.9 Obesity, unspecified; H54.7 Unspecified visual loss; E78.00 Pure hypercholesterolemia, unspecified; K21.9 Gastro-esophageal reflux disease without esophagitis; M19.90 Unspecified osteoarthritis, unspecified site; G30.9 Alzheimer's disease, unspecified; F32.A Depression, unspecified; E86.0 Dehydration; R73.9 Hyperglycemia, unspecified; E83.52 Hypercalcemia; E88.09 Other disorders of plasma-protein metabolism, not elsewhere classified; I11.0 Hypertensive heart disease with heart failure; D72.829 Elevated white blood cell count, unspecified; D64.9 Anemia, unspecified; I25.10 Atherosclerotic heart disease of native coronary artery without angina pectoris; Z96.659 Presence of unspecified artificial knee joint; Z88.8 Allergy status to other drugs, medicaments and biological substances; Z79.899 Other long term (current) drug therapy; Z98.49 Cataract extraction status, unspecified eye; Z86.73 Personal history of transient ischemic attack (TIA), and cerebral infarction without residual deficits; Z68.33 Body mass index [BMI] 33.0-33.9, adult
CPT/HCPCS: 36415; 71045; 74150; 80048; 80053; 82947; 83605; 83735; 84295; 85025; 86140; 87040; 87426-QW; 94640; 94664; 96361; 96365; 96375; 99223; 99233; 99239; 99285-25; A9270-GY; J0295; J0696; J1100; J1271; J1650; J1938; J2185; J2470; J2543; J2919; J7030; J7070; J8540